=== PATIENT | male | born 1940 | race Caucasian/White ===

== ENCOUNTER 2017-08-03 10:19 | Inpatient (IN) | payer MEDICARE, BC ==
[~2017-08-03] VITALS: Ht 172.7 cm; Wt 65.3 kg
[2017-08-03] MEDS ORDERED: HYDROMORPHONE INJ 2 MG/ML DISP.SYRIN IV ONE (10:23)
[2017-08-03 10:50] LABS: BASOPHILS % (AUTO) 0.3 % (0.0-2.0); EOSINOPHILS % (AUTO) 0.2 % (0.0-6.0); HEMATOCRIT 35 % (39-51); HEMOGLOBIN 11.9 g/dL (13.5-17.5); LYMPHOCYTES # (AUTO) 0.7 /CMM (0.8-4.8); LYMPHOCYTES % (AUTO) 8.3 % (20.0-44.0); MEAN CORPUSCULAR HGB CONC 34 g/dl (31.0-36.0); MEAN CORPUSCULAR VOLUME 90 fL (80-96); MONOCYTES # (AUTO) 0.6 /CMM (0.1-1.30); MONOCYTES % (AUTO) 6.5 % (2.0-12.0); NEUTROPHILS # (AUTO) 7.6 /CMM (1.8-8.9); NEUTROPHILS % (AUTO) 84.7 % (43.0-81.0); PLATELET COUNT (AUTO) 157 /CMM (150-450); RDW COEFFICIENT OF VARIATION 15.1 (11.5-15.0); RED BLOOD CELL COUNT(AUTO) 3.88 MIL/uL (4.5-6.0)
[2017-08-03 10:58] LABS: CALCIUM, SERUM 9.5 mg/dL (8.5-10.1); CARBON DIOXIDE 21 mmol/L (21-32); CHLORIDE 99 mmol/L (98-107); CREATININE 3.4 mg/dL (0.6-1.3); GLUCOSE 188 mg/dL (74-106); POTASSIUM 4.5 mmol/L (3.5-5.1); SODIUM SERUM 131 mmol/L (136-145); UREA NITROGEN, BLOOD 61 mg/dL (7-18)
[2017-08-03] MEDS ORDERED: HYDROMORPHONE INJ 0.5 MG/0.5 ML SYRINGE IV ONE ×2 (11:00→13:00)
[2017-08-03] MEDS ORDERED: ONDANSETRON HCL/PF - ER 4 MG/2 ML VIAL IV ONE (11:00)
[2017-08-03 11:01] LABS: INR 1.11 (0.85-1.15)
[2017-08-03 11:03] LABS: ALBUMIN 2.3 g/dL (3.4-5.0); BILIRUBIN,DIRECT 0.7 mg/dL (0.0-0.2); BILIRUBIN,TOTAL 1.4 mg/dL (0.2-1.0); TOTAL PROTEIN, SERUM 6.9 g/dL (6.4-8.2)
[2017-08-03] MEDS ORDERED: FENTANYL PF 100MCG/2ML AMPUL IV ONE (11:30)
[2017-08-03] MEDS ORDERED: ONDANSETRON HCL/PF 4 MG/2 ML VIAL ONE (11:49)
[2017-08-03] MEDS ORDERED: FENTANYL PF 100MCG/2ML AMPUL ONE (11:50)
[2017-08-03 11:59] LABS: APPEARANCE,URINE Cloudy (CLEAR); BILIRUBIN,URINE Negative (NEGATIVE); BLOOD, URINE Small Ery/uL (NEGATIVE); KETONES,URINE Trace (NEGATIVE); LEUKOCYTE ESTERASE ,URINE Negative (NEGATIVE); NITRITE, URINE Negative (NEGATIVE); PROTEIN,URINE 100 mg/dl (NEGATIVE); UGLUCOSE Negative (NEGATIVE); UROBILINOGEN,URINE 0.2 EU/dL (0.2)
[2017-08-03 12:02] LABS: COLOR,URINE Dark Yellow (YELLOW)
[2017-08-03 12:08] LABS: BACTERIA,URINE None seen /HPF (None Seen); WBC,URINE 0-3 /HPF (0-3)
[2017-08-03 12:09] LABS: SQUAMOUS EPITHELIAL CELL,UR Few /HPF (None Seen); URINE AMORPHOUS URATE Moderate /HPF (None Seen)
[2017-08-03 14:25] VITALS: BP 114/50
[2017-08-03] MEDS ORDERED: MAG HYDROX/AL HYDROX/SIMETH 30 ML UDC PO PRN (14:30)
[2017-08-03] MEDS ORDERED: HYDROCODONE/APAP 10/325MG 1 EA TABLET PO PRN ×2 (14:30)
[2017-08-03] MEDS ORDERED: MAGNESIUM HYDROXIDE 30 ML UDC PO PRN (14:30)
[2017-08-03] MEDS ORDERED: ACETAMINOPHEN 325 MG TABLET PO PRN (14:30)
[2017-08-03] MEDS ORDERED: ONDANSETRON HCL/PF 4 MG/2 ML VIAL IVP PRN (14:30)
[2017-08-03] MEDS ORDERED: PRED5TAB PO (14:39)
[2017-08-03] MEDS ORDERED: GLIP5TAB13 PO (14:39)
[2017-08-03] MEDS ORDERED: DILT240C2 PO (14:39)
[2017-08-03] MEDS ORDERED: VALS320T2 PO (14:39)
[2017-08-03] MEDS ORDERED: CARV25TA2 PO (14:39)
[2017-08-03] MEDS ORDERED: ALPR0.5T8 PO (14:39)
[2017-08-03] MEDS ORDERED: ABIR500T PO (14:39)
[2017-08-03] MEDS ORDERED: LATA2.5D7 EACHEYE (14:39)
[2017-08-03] MEDS ORDERED: ATOR40TA PO (14:39)
[2017-08-03 16:00] VITALS: BP 114/50
[2017-08-03] MEDS ORDERED: ALPRAZOLAM 0.5 MG TABLET PO PRN (16:30)
[2017-08-03] MEDS: BLOOD SUGAR DIAGNOSTIC 1 EACH STRIP IN SCH ×2 (16:50→21:05)
[2017-08-03] MEDS: IV NS 0.9% 1,000 ML IV PRN (16:50)
[2017-08-03] MEDS ORDERED: DEXTROSE 50%-WATER 50 ML DISP.SYRIN IV PRN (17:00)
[2017-08-03 20:00] VITALS: BP 91/51
[2017-08-03] MEDS ORDERED: IV NS 0.9% 1,000 ML IV ONE (20:00)
[2017-08-03] MEDS: CARVEDILOL 12.5 MG TABLET PO SCH (20:24)
[2017-08-03] MEDS: LATANOPROST EYE DROP 0.005% 2.5 ML BOTTLE EACHEYE SCH (21:05)
[2017-08-04] VITALS: BP 129/80
[2017-08-04] MEDS: HYDROMORPHONE HCL 2 MG TABLET PO PRN ×2 (02:56→10:52)
[2017-08-04 04:00] VITALS: BP 138/69
[2017-08-04] MEDS: BLOOD SUGAR DIAGNOSTIC 1 EACH STRIP IN SCH ×4 (06:06→21:48)
[2017-08-04] MEDS: INSULIN REGULAR, HUMAN 100 UNIT/ML 3 ML VIAL SQ PRN ×2 (06:09→22:00)
[2017-08-04 06:19] LABS: BASOPHILS % (AUTO) 0.1 % (0.0-2.0); EOSINOPHILS % (AUTO) 0.4 % (0.0-6.0); HEMATOCRIT 34 % (39-51); HEMOGLOBIN 11.5 g/dL (13.5-17.5); LYMPHOCYTES # (AUTO) 0.4 /CMM (0.8-4.8); LYMPHOCYTES % (AUTO) 6.8 % (20.0-44.0); MEAN CORPUSCULAR HGB CONC 34 g/dl (31.0-36.0); MEAN CORPUSCULAR VOLUME 91 fL (80-96); MONOCYTES # (AUTO) 0.6 /CMM (0.1-1.30); MONOCYTES % (AUTO) 9.3 % (2.0-12.0); NEUTROPHILS # (AUTO) 5.5 /CMM (1.8-8.9); NEUTROPHILS % (AUTO) 83.4 % (43.0-81.0); PLATELET COUNT (AUTO) 144 /CMM (150-450); RDW COEFFICIENT OF VARIATION 15.1 (11.5-15.0); RED BLOOD CELL COUNT(AUTO) 3.75 MIL/uL (4.5-6.0); WHITE BLOOD COUNT (AUTO) 6.5 K/uL (4.3-11.0)
[2017-08-04 06:46] LABS: CALCIUM, SERUM 9.6 mg/dL (8.5-10.1); CARBON DIOXIDE 22 mmol/L (21-32); CHLORIDE 103 mmol/L (98-107); CREATININE 4.2 mg/dL (0.6-1.3); GLUCOSE 228 mg/dL (74-106); MAGNESIUM 2.3 mg/dL (1.8-2.4); PHOSPHORUS 4.3 mg/dL (2.5-4.9); POTASSIUM 4.7 mmol/L (3.5-5.1); SODIUM SERUM 136 mmol/L (136-145); UREA NITROGEN, BLOOD 68 mg/dL (7-18)
[2017-08-04 06:51] LABS: HDL CHOLESTEROL 12 mg/dL (40-60); LDL 26 mg/dL (0-99); TRIGLYCERIDES 281 mg/dL (30-150)
[2017-08-04 07:41] LABS: BAND % (MANUAL) 3 % (0.0-5.0); LYMPHOCYTES % (MANUAL) 13 % (16-48); NEUTROPHILS % (MANUAL) 76 (42-76)
[2017-08-04 07:42] LABS: EOSINOPHILS % (MANUAL) 1 % (0-4); MONOCYTES % (MANUAL) 7 % (0-11.0)
[2017-08-04 08:00] VITALS: BP 102/53
[2017-08-04] MEDS: CARVEDILOL 12.5 MG TABLET PO SCH ×2 (08:55→21:48)
[2017-08-04] MEDS: DILTIAZEM HCL CD 240 MG PO SCH (08:55)
[2017-08-04] MEDS: ATORVASTATIN 40 MG TABLET PO SCH (08:56)
[2017-08-04] MEDS ORDERED: VALSARTAN 80 MG TABLET PO SCH (09:00)
[2017-08-04] MEDS ORDERED: predniSONE 5 MG TABLET PO SCH (09:00)
[2017-08-04] MEDS: ZYTIGA 500 MG PO SCH (10:00)
[2017-08-04 11:15] LABS: CHOLESTEROL 85 mg/dL (<200)
[2017-08-04] MEDS: DEXAMETHASONE SOD PHOSPHATE 4 MG/ML VIAL IV SCH ×3 (12:41→23:26)
[2017-08-04] MEDS ORDERED: BISACODYL SUPP (10 MG) 10 MG/SUPP.RECT SUPP.RECT RC PRN (14:30)
[2017-08-04] MEDS ORDERED: MINERAL OIL 133 ML (PYXIS) 1 EA ENEMA RC ONE (14:30)
[2017-08-04] MEDS: MORPHINE SULFATE SR 30 MG TABLET.SA PO SCH ×2 (15:01→21:48)
[2017-08-04 16:00] VITALS: BP 167/78
[2017-08-04 17:43] LABS: APPEARANCE,URINE SL CLOUDY (CLEAR); BILIRUBIN,URINE NEGATIVE (NEGATIVE); BLOOD, URINE 1+ Ery/uL (NEGATIVE); COLOR,URINE YELLOW (YELLOW); KETONES,URINE NEGATIVE (NEGATIVE); LEUKOCYTE ESTERASE ,URINE TRACE (NEGATIVE); NITRITE, URINE NEGATIVE (NEGATIVE); PROTEIN,URINE 1+ mg/dl (NEGATIVE); UGLUCOSE NEGATIVE (NEGATIVE); UROBILINOGEN,URINE 0.2 EU/dL (0.2)
[2017-08-04] MEDS: IV NS 0.9% 1,000 ML IV PRN (17:55)
[2017-08-04 17:56] LABS: WBC,URINE 0-3 /HPF (0-3)
[2017-08-04 17:57] LABS: BACTERIA,URINE 1+ /HPF (None Seen); CREATININE, URINE 115.2 MG/DL (30.0-125.0); URINE AMORPHOUS URATE Moderate /HPF (None Seen)
[2017-08-04 17:58] LABS: SQUAMOUS EPITHELIAL CELL,UR Few /HPF (None Seen)
[2017-08-04 19:33] LABS: EOSINOPHIL,URINE None Seen
[2017-08-04 20:00] VITALS: BP 144/84
[2017-08-04] MEDS: LATANOPROST EYE DROP 0.005% 2.5 ML BOTTLE EACHEYE SCH (21:48)
[2017-08-04] MEDS: HEPARIN SODIUM, PORCINE 5000 UNITS/1 ML VIAL SQ SCH (22:01)
[2017-08-05 06:30] LABS: BASOPHILS % (AUTO) 0.1 % (0.0-2.0); HEMATOCRIT 34 % (39-51); HEMOGLOBIN 11.1 g/dL (13.5-17.5); LYMPHOCYTES # (AUTO) 0.3 /CMM (0.8-4.8); LYMPHOCYTES % (AUTO) 4.2 % (20.0-44.0); MEAN CORPUSCULAR HGB CONC 33 g/dl (31.0-36.0); MEAN CORPUSCULAR VOLUME 91 fL (80-96); MONOCYTES # (AUTO) 0.3 /CMM (0.1-1.30); MONOCYTES % (AUTO) 4.7 % (2.0-12.0); NEUTROPHILS # (AUTO) 6.2 /CMM (1.8-8.9); PLATELET COUNT (AUTO) 164 /CMM (150-450); RDW COEFFICIENT OF VARIATION 15.5 (11.5-15.0); WHITE BLOOD COUNT (AUTO) 6.8 K/uL (4.3-11.0)
[2017-08-05] MEDS: BLOOD SUGAR DIAGNOSTIC 1 EACH STRIP IN SCH ×4 (06:50→21:21)
[2017-08-05] MEDS: DEXAMETHASONE SOD PHOSPHATE 4 MG/ML VIAL IV SCH ×3 (06:51→17:34)
[2017-08-05 06:58] LABS: CREATINE KINASE, TOTAL 220 U/L (39-308)
[2017-08-05] MEDS: INSULIN REGULAR, HUMAN 100 UNIT/ML 3 ML VIAL SQ PRN ×4 (06:59→21:21)
[2017-08-05] MEDS: IV NS 0.9% 1,000 ML IV PRN (06:59)
[2017-08-05 07:08] LABS: ALANINE AMINOTRANSFERASE 19 U/L (12-78); ALBUMIN 1.7 g/dL (3.4-5.0); ASPARTATE AMINOTRANSFERASE 43 U/L (15-37); BILIRUBIN,TOTAL 1.1 mg/dL (0.2-1.0); CALCIUM, SERUM 10.1 mg/dL (8.5-10.1); CARBON DIOXIDE 19 mmol/L (21-32); CHLORIDE 105 mmol/L (98-107); CREATININE 4.8 mg/dL (0.6-1.3); GLUCOSE 295 mg/dL (74-106); MAGNESIUM 3.4 mg/dL (1.8-2.4); PHOSPHORUS 4.2 mg/dL (2.5-4.9); POTASSIUM 5.5 mmol/L (3.5-5.1); SODIUM SERUM 137 mmol/L (136-145); TOTAL PROTEIN, SERUM 6.6 g/dL (6.4-8.2); UREA NITROGEN, BLOOD 79 mg/dL (7-18)
[2017-08-05 07:16] LABS: ALKALINE PHOSPHATASE 1470 U/L (46-116)
[2017-08-05] MEDS: PANTOPRAZOLE 40 MG TABLET.DR PO SCH (07:30)
[2017-08-05] MEDS: MORPHINE SULFATE SR 30 MG TABLET.SA PO SCH ×2 (09:00→21:14)
[2017-08-05] MEDS: ZYTIGA 500 MG PO SCH (09:00)
[2017-08-05] MEDS: DILTIAZEM HCL CD 240 MG PO SCH (09:00)
[2017-08-05] MEDS: CARVEDILOL 12.5 MG TABLET PO SCH ×2 (09:00→21:00)
[2017-08-05] MEDS: ATORVASTATIN 40 MG TABLET PO SCH (09:00)
[2017-08-05 09:41] VITALS: BP 100/64
[2017-08-05 09:50] LABS: BAND % (MANUAL) 6 % (0.0-5.0); LYMPHOCYTES % (MANUAL) 8 % (16-48); METAMYELOCYTES % 1 % (0-0); MONOCYTES % (MANUAL) 6 % (0-11.0); NEUTROPHILS % (MANUAL) 79 (42-76)
[2017-08-05] MEDS: HEPARIN SODIUM, PORCINE 5000 UNITS/1 ML VIAL SQ SCH ×2 (09:52→21:20)
[2017-08-05 10:08] LABS: FREE PSA 9.41 ng/mL (0.00-45); PROSTATE SPECIFIC ANTIGEN SCR 73.39 ng/mL (0.00-4.00)
[2017-08-05] MEDS: HYDROMORPHONE HCL 2 MG TABLET PO PRN ×2 (11:50→16:41)
[2017-08-05 16:23] VITALS: BP 103/22
[2017-08-05 20:00] VITALS: BP 108/75
[2017-08-05] MEDS: LATANOPROST EYE DROP 0.005% 2.5 ML BOTTLE EACHEYE SCH (21:21)
[2017-08-05 22:00] VITALS: BP 108/75
[2017-08-06] VITALS (12 sets, daily range): BP systolic 75–142; BP diastolic 49–120
[2017-08-06] MEDS: DEXAMETHASONE SOD PHOSPHATE 4 MG/ML VIAL IV SCH ×4 (00:59→18:35)
[2017-08-06] MEDS: IV NS 0.9% 1,000 ML IV PRN (01:06)
[2017-08-06] MEDS: BLOOD SUGAR DIAGNOSTIC 1 EACH STRIP IN SCH ×4 (06:48→21:47)
[2017-08-06 06:52] LABS: CALCIUM, SERUM 9.7 mg/dL (8.5-10.1); CARBON DIOXIDE 17 mmol/L (21-32); CHLORIDE 109 mmol/L (98-107); CREATININE 5.6 mg/dL (0.6-1.3); GLUCOSE 238 mg/dL (74-106); POTASSIUM 5.8 mmol/L (3.5-5.1); SODIUM SERUM 139 mmol/L (136-145)
[2017-08-06] MEDS: INSULIN REGULAR, HUMAN 100 UNIT/ML 3 ML VIAL SQ PRN ×3 (06:52→21:51)
[2017-08-06 06:54] LABS: UREA NITROGEN, BLOOD 107 mg/dL (7-18)
[2017-08-06] MEDS ORDERED: Z GUARD REMEDY 2 OZ OINT TP PRN (09:00)
[2017-08-06] MEDS: DILTIAZEM HCL CD 240 MG PO SCH (09:18)
[2017-08-06] MEDS: CARVEDILOL 12.5 MG TABLET PO SCH ×2 (09:18→21:00)
[2017-08-06] MEDS: ATORVASTATIN 40 MG TABLET PO SCH (09:18)
[2017-08-06] MEDS: ZYTIGA 500 MG PO SCH (09:21)
[2017-08-06] MEDS: FENTANYL PF 100MCG/2ML AMPUL IV PRN (09:23)
[2017-08-06] MEDS: HEPARIN SODIUM, PORCINE 5000 UNITS/1 ML VIAL SQ SCH ×2 (09:28→21:52)
[2017-08-06] MEDS: PANTOPRAZOLE 40 MG TABLET.DR PO SCH (09:30)
[2017-08-06] MEDS ORDERED: MORPHINE SULFATE SR 15 MG TABLET.SA PO SCH (10:00)
[2017-08-06 11:12] LABS: IMMUNOGLOBULIN A, SERUM 120 mg/dL (61-437); IMMUNOGLOBULIN G, SERUM 615 mg/dL (700-1600); IMMUNOGLOBULIN M, SERUM 57 mg/dL (15-143)
[2017-08-06] MEDS: ACETAMINOPHEN 325 MG TABLET PO SCH ×3 (12:30→23:03)
[2017-08-06] MEDS: Z GUARD REMEDY 2 OZ OINT TP SCH (13:29)
[2017-08-06 14:48] LABS: APPEARANCE,URINE CLOUDY (CLEAR); BILIRUBIN,URINE NEGATIVE (NEGATIVE); BLOOD, URINE 3+ Ery/uL (NEGATIVE); COLOR,URINE YELLOW (YELLOW); KETONES,URINE NEGATIVE (NEGATIVE); LEUKOCYTE ESTERASE ,URINE 2+ (NEGATIVE); NITRITE, URINE NEGATIVE (NEGATIVE); PROTEIN,URINE 1+ mg/dl (NEGATIVE); UGLUCOSE NEGATIVE (NEGATIVE); UROBILINOGEN,URINE 0.2 EU/dL (0.2)
[2017-08-06 15:04] LABS: CREATININE, URINE 207.9 MG/DL (30.0-125.0); URINE TOTAL PROTEIN 121.2 mg/dL (0-11.9)
[2017-08-06 15:23] LABS: SQUAMOUS EPITHELIAL CELL,UR Rare /HPF (None Seen)
[2017-08-06 15:24] LABS: BACTERIA,URINE 1+ /HPF (None Seen)
[2017-08-06 16:00] LABS: EOSINOPHIL,URINE None Seen
[2017-08-06] MEDS: BOOST GLUCOSE CONTROL VANILLA 237 ML BOX PO SCH (17:00)
[2017-08-06] MEDS ORDERED: SODIUM POLYSTYRENE SULFONATE 15 G/60 ML BOTTLE RC ONE (17:00)
[2017-08-06] MEDS ORDERED: IV NS 0.9% 1,000 ML IV PRN ×2 (17:00→23:00)
[2017-08-06 17:13] LABS: ABG BASE EXCESS -12.1 mmol/L; ABG OXYGEN SATURATION 96.8 % (92.0-98.5); ABG PCO2 32.9 mmHg (35.0-45.0); ABG PH 7.248 (7.350-7.450); ABG PO2 105.6 mmHg (75.0-100.0); AaDO2 112.9 mmHg; COHb 0.3 % (0.5-1.5); MetHb 0.3 % (0.0-1.5); O2Hb 96.2 % (94.0-97.0); SITE, ABG Left Radial
[2017-08-06] MEDS: Sodium Bicarbonate 100 MEQ in IV D5W 1,000 ML IV PRN (17:21)
[2017-08-06] MEDS ORDERED: IV NS 0.9% 1,000 ML IV ONE (19:00)
[2017-08-06] MEDS: LATANOPROST EYE DROP 0.005% 2.5 ML BOTTLE EACHEYE SCH (21:47)
[2017-08-06] MEDS ORDERED: NOREPINEPHRINE 4 MG/4 ML AMPUL IV ONE (23:26)
[2017-08-06] MEDS: NOREPINEPHRINE 8 MG in IV D5W 500 ML IV PRN (23:31)
[2017-08-07] VITALS (36 sets, daily range): BP systolic 106–161; BP diastolic 50–100
[2017-08-07] MEDS ORDERED: PIPERACILLIN /TAZOBACTAM 4.5 G in IV D5W 50 ML IV SCH ×2
[2017-08-07] MEDS: DEXAMETHASONE SOD PHOSPHATE 4 MG/ML VIAL IV SCH ×5 (01:00→23:59)
[2017-08-07] MEDS ORDERED: VANCOMYCIN 1.25 GM in IV NS 0.9% 250 ML IV ONE (01:00)
[2017-08-07] MEDS ORDERED: VANCOMYCIN 500 MG VIAL ONE (02:42)
[2017-08-07] MEDS ORDERED: VANCOMYCIN 1 GM VIAL ONE (02:42)
[2017-08-07] MEDS ORDERED: PIPERACILLIN /TAZOBACTAM 2.25 G VIAL IV ONE (02:43)
[2017-08-07] MEDS: PIPERACILLIN /TAZOBACTAM 2.25 G in IV D5W 50 ML IV SCH ×3 (04:11→21:40)
[2017-08-07] MEDS ORDERED: IV NS 0.9% 1,000 ML IV PRN (04:30)
[2017-08-07 05:16] LABS: HEMATOCRIT 33 % (39-51); HEMOGLOBIN 10.9 g/dL (13.5-17.5); LYMPHOCYTES # (AUTO) 0.3 /CMM (0.8-4.8); LYMPHOCYTES % (AUTO) 2.9 % (20.0-44.0); MEAN CORPUSCULAR HGB CONC 33 g/dl (31.0-36.0); MEAN CORPUSCULAR VOLUME 91 fL (80-96); MONOCYTES # (AUTO) 0.1 /CMM (0.1-1.30); MONOCYTES % (AUTO) 1.4 % (2.0-12.0); NEUTROPHILS # (AUTO) 9.4 /CMM (1.8-8.9); NEUTROPHILS % (AUTO) 95.7 % (43.0-81.0); PLATELET COUNT (AUTO) 118 /CMM (150-450); RDW COEFFICIENT OF VARIATION 16.2 (11.5-15.0); RED BLOOD CELL COUNT(AUTO) 3.61 MIL/uL (4.5-6.0); WHITE BLOOD COUNT (AUTO) 9.8 K/uL (4.3-11.0)
[2017-08-07 05:28] LABS: CALCIUM, SERUM 9.5 mg/dL (8.5-10.1); CARBON DIOXIDE 15 mmol/L (21-32); CHLORIDE 107 mmol/L (98-107); CREATININE 5.6 mg/dL (0.6-1.3); GLUCOSE 349 mg/dL (74-106); MAGNESIUM 2.5 mg/dL (1.8-2.4); PHOSPHORUS 4.9 mg/dL (2.5-4.9); POTASSIUM 5.5 mmol/L (3.5-5.1); SODIUM SERUM 138 mmol/L (136-145)
[2017-08-07] MEDS: Sodium Bicarbonate 100 MEQ in IV D5W 1,000 ML IV PRN ×2 (05:32→19:00)
[2017-08-07] MEDS: ACETAMINOPHEN 325 MG TABLET PO SCH ×4 (05:35→23:59)
[2017-08-07 05:42] LABS: UREA NITROGEN, BLOOD 122 mg/dL (7-18)
[2017-08-07] MEDS ORDERED: NOREPINEPHRINE 4 MG/4 ML AMPUL IV ONE (06:34)
[2017-08-07] MEDS: NOREPINEPHRINE 8 MG in IV D5W 500 ML IV PRN (06:40)
[2017-08-07] MEDS: PANTOPRAZOLE 40 MG TABLET.DR PO SCH (07:30)
[2017-08-07] MEDS: BLOOD SUGAR DIAGNOSTIC 1 EACH STRIP IN SCH ×3 (07:30→21:39)
[2017-08-07] MEDS: INSULIN REGULAR, HUMAN 100 UNIT/ML 3 ML VIAL SQ PRN ×3 (07:32→21:43)
[2017-08-07 08:10] LABS: *SPE A/G RATIO 0.6 (0.7-1.7); *SPE ALPHA-1-GLOBULIN 0.5 g/dL (0.0-0.4); *SPE ALPHA-2-GLOBULIN 1.2 g/dL (0.4-1.0); *SPE BETA GLOBULIN 0.9 g/dL (0.7-1.3); *SPE GLOBULIN, TOTAL 3.2 g/dL (2.2-3.9); *SPE M-SPIKE Not Observed g/dL (Not Observed); *SPEGAMMA GLOBULIN 0.6 g/dL (0.4-1.8)
[2017-08-07] MEDS: BOOST GLUCOSE CONTROL VANILLA 237 ML BOX PO SCH ×3 (08:54→17:00)
[2017-08-07] MEDS: ATORVASTATIN 40 MG TABLET PO SCH (09:00)
[2017-08-07] MEDS: DILTIAZEM HCL CD 240 MG PO SCH (09:00)
[2017-08-07] MEDS: ZYTIGA 500 MG PO SCH (09:00)
[2017-08-07] MEDS: CARVEDILOL 12.5 MG TABLET PO SCH ×2 (09:00→21:40)
[2017-08-07] MEDS ORDERED: ROCURONIUM BROMIDE 50 MG/5 ML ONE (09:38)
[2017-08-07 10:06] LABS: ABG BASE EXCESS -12.7 mmol/L; ABG OXYGEN SATURATION 95.1 % (92.0-98.5); ABG PH 7.162 (7.350-7.450); ABG PO2 90.5 mmHg (75.0-100.0); AaDO2 115.1 mmHg; COHb 0.3 % (0.5-1.5); MetHb 0.4 % (0.0-1.5); O2Hb 94.4 % (94.0-97.0); SITE, ABG Left Radial; VENT MODE, BG nasal cannula
[2017-08-07 10:07] LABS: ABG BASE EXCESS -11.9 mmol/L; ABG OXYGEN SATURATION 98.4 % (92.0-98.5); ABG PCO2 33.5 mmHg (35.0-45.0); ABG PH 7.247 (7.350-7.450); ABG PO2 154.4 mmHg (75.0-100.0); AaDO2 92.3 mmHg; COHb 0.3 % (0.5-1.5); MetHb 0.3 % (0.0-1.5); O2Hb 97.8 % (94.0-97.0); SITE, ABG Right Radial
[2017-08-07] MEDS: PROPOFOL 100 ML IV PRN ×2 (10:15→17:26)
[2017-08-07 11:23] LABS: ABG BASE EXCESS -11.1 mmol/L; ABG OXYGEN SATURATION 96.2 % (92.0-98.5); ABG PCO2 34.4 mmHg (35.0-45.0); ABG PH 7.258 (7.350-7.450); ABG PO2 92.9 mmHg (75.0-100.0); AaDO2 224.9 mmHg; COHb 0.3 % (0.5-1.5); MetHb 0.5 % (0.0-1.5); O2Hb 95.4 % (94.0-97.0); PEEP,BG 5 cm H2O; SITE, ABG Right Radial; VT, ABG 550 mL
[2017-08-07] MEDS: Z GUARD REMEDY 2 OZ OINT TP SCH (11:50)
[2017-08-07] MEDS: HEPARIN SODIUM, PORCINE 5000 UNITS/1 ML VIAL SQ SCH ×2 (11:56→21:42)
[2017-08-07] MEDS: NOREPINEPHRINE 16 MG in IV D5W 500 ML IV PRN (11:57)
[2017-08-07 14:20] LABS: PTH, INTACT 55 pg/mL (15-65)
[2017-08-07] MEDS ORDERED: ROCURONIUM BROMIDE 50 MG/5 ML IV ONE ×2 (14:32→14:33)
[2017-08-07] MEDS ORDERED: ETOMIDATE 2 MG/ML VIAL IV ONE (14:33)
[2017-08-07 16:08] LABS: APPEARANCE,URINE CLOUDY (CLEAR); BILIRUBIN,URINE NEGATIVE (NEGATIVE); BLOOD, URINE 3+ Ery/uL (NEGATIVE); COLOR,URINE YELLOW (YELLOW); KETONES,URINE NEGATIVE (NEGATIVE); LEUKOCYTE ESTERASE ,URINE NEGATIVE (NEGATIVE); NITRITE, URINE NEGATIVE (NEGATIVE); PH,URINE 5.5 (5.0-8.0); PROTEIN,URINE 1+ mg/dl (NEGATIVE); UGLUCOSE 1+ mg/dL (NEGATIVE); UROBILINOGEN,URINE 0.2 EU/dL (0.2)
[2017-08-07 16:46] LABS: BACTERIA,URINE 2+ /HPF (None Seen); RBC,URINE 81-100 /HPF (0-2); SQUAMOUS EPITHELIAL CELL,UR None Seen /HPF (None Seen); WBC,URINE NONE SEEN /HPF (0-3)
[2017-08-07] MEDS ORDERED: BLOOD SUGAR DIAGNOSTIC 1 EACH STRIP IN SCH (17:30)
[2017-08-07] MEDS ORDERED: DEXTROSE 50%-WATER 50 ML DISP.SYRIN IV PRN ×2 (17:30→19:00)
[2017-08-07] MEDS ORDERED: INSULIN REGULAR, HUMAN 100 UNIT/ML 3 ML VIAL SQ PRN (17:30)
[2017-08-07] MEDS ORDERED: FEE PK DOSING 1 MIN EA MC ONE (20:37)
[2017-08-07] MEDS: LATANOPROST EYE DROP 0.005% 2.5 ML BOTTLE EACHEYE SCH (21:41)
[2017-08-08] VITALS (93 sets, daily range): BP systolic 64–150; BP diastolic 41–88
[2017-08-08] MEDS: BLOOD SUGAR DIAGNOSTIC 1 EACH STRIP IN SCH ×6 (00:06→20:53)
[2017-08-08] MEDS: INSULIN REGULAR, HUMAN 100 UNIT/ML 3 ML VIAL SQ PRN ×6 (00:07→20:56)
[2017-08-08] MEDS: PROPOFOL 100 ML IV PRN ×5 (02:03→21:33)
[2017-08-08 04:58] LABS: HEMOGLOBIN 9.1 g/dL (13.5-17.5); NEUTROPHILS # (AUTO) 8.1 /CMM (1.8-8.9)
[2017-08-08 05:00] LABS: EOSINOPHILS % (AUTO) 0.5 % (0.0-6.0); HEMATOCRIT 27 % (39-51); LYMPHOCYTES # (AUTO) 0.7 /CMM (0.8-4.8); LYMPHOCYTES % (AUTO) 7.7 % (20.0-44.0); MEAN CORPUSCULAR HGB CONC 34 g/dl (31.0-36.0); MEAN CORPUSCULAR VOLUME 90 fL (80-96); MONOCYTES # (AUTO) 0.2 /CMM (0.1-1.30); MONOCYTES % (AUTO) 1.9 % (2.0-12.0); NEUTROPHILS % (AUTO) 89.9 % (43.0-81.0); PLATELET COUNT (AUTO) 77 /CMM (150-450); RDW COEFFICIENT OF VARIATION 15.7 (11.5-15.0); RED BLOOD CELL COUNT(AUTO) 3.01 MIL/uL (4.5-6.0); WHITE BLOOD COUNT (AUTO) 9.1 K/uL (4.3-11.0)
[2017-08-08 05:10] LABS: CALCIUM, SERUM 8.5 mg/dL (8.5-10.1); CARBON DIOXIDE 23 mmol/L (21-32); CHLORIDE 106 mmol/L (98-107); GLUCOSE 266 mg/dL (74-106); MAGNESIUM 2.2 mg/dL (1.8-2.4); PHOSPHORUS 3.5 mg/dL (2.5-4.9); POTASSIUM 4.2 mmol/L (3.5-5.1); SODIUM SERUM 139 mmol/L (136-145)
[2017-08-08 05:12] LABS: UREA NITROGEN, BLOOD 92 mg/dL (7-18)
[2017-08-08 05:21] LABS: NEUTROPHILS % (MANUAL) 86 (42-76)
[2017-08-08 05:22] LABS: BAND % (MANUAL) 6 % (0.0-5.0); LYMPHOCYTES % (MANUAL) 3 % (16-48); MONOCYTES % (MANUAL) 5 % (0-11.0)
[2017-08-08] MEDS: PIPERACILLIN /TAZOBACTAM 2.25 G in IV D5W 50 ML IV SCH ×3 (05:55→21:02)
[2017-08-08] MEDS: ACETAMINOPHEN 325 MG TABLET PO SCH ×4 (05:56→23:48)
[2017-08-08] MEDS: DEXAMETHASONE SOD PHOSPHATE 4 MG/ML VIAL IV SCH ×4 (05:56→23:48)
[2017-08-08] MEDS: CARVEDILOL 12.5 MG TABLET PO SCH ×2 (08:38→20:45)
[2017-08-08] MEDS: ZYTIGA 500 MG PO SCH (08:38)
[2017-08-08] MEDS: ATORVASTATIN 40 MG TABLET PO SCH (08:38)
[2017-08-08] MEDS: DILTIAZEM HCL CD 240 MG PO SCH (08:38)
[2017-08-08] MEDS: BOOST GLUCOSE CONTROL VANILLA 237 ML BOX PO SCH ×3 (08:39→17:00)
[2017-08-08] MEDS: PANTOPRAZOLE 40 MG TABLET.DR PO SCH (08:48)
[2017-08-08] MEDS: Z GUARD REMEDY 2 OZ OINT TP SCH (08:55)
[2017-08-08] MEDS: HEPARIN SODIUM, PORCINE 5000 UNITS/1 ML VIAL SQ SCH ×2 (08:57→20:46)
[2017-08-08 09:01] LABS: ABG BASE EXCESS -3.3 mmol/L; ABG OXYGEN SATURATION 96.9 % (92.0-98.5); ABG PCO2 28.7 mmHg (35.0-45.0); ABG PH 7.454 (7.350-7.450); ABG PO2 103.9 mmHg (75.0-100.0); AaDO2 148.3 mmHg; COHb 0.3 % (0.5-1.5); MetHb 0.2 % (0.0-1.5); O2Hb 96.4 % (94.0-97.0); PEEP,BG 5 cm H2O; SITE, ABG Left Radial; VT, ABG 600 mL
[2017-08-08] MEDS: AMIODARONE HCL 200 MG TABLET NG SCH ×2 (12:11→17:57)
[2017-08-08] MEDS: NOREPINEPHRINE 16 MG in IV D5W 500 ML IV PRN (13:43)
[2017-08-08] MEDS: FENTANYL PF 100MCG/2ML AMPUL IV PRN (16:16)
[2017-08-08] MEDS ORDERED: VANCOMYCIN 1 GM in IV NS 0.9% 250 ML IV ONE (18:00)
[2017-08-08] MEDS: LATANOPROST EYE DROP 0.005% 2.5 ML BOTTLE EACHEYE SCH (21:25)
[2017-08-09] VITALS (67 sets, daily range): BP systolic 86–145; BP diastolic 53–80
[2017-08-09] MEDS: INSULIN REGULAR, HUMAN 100 UNIT/ML 3 ML VIAL SQ PRN ×6 (01:11→21:31)
[2017-08-09] MEDS: BLOOD SUGAR DIAGNOSTIC 1 EACH STRIP IN SCH ×6 (01:12→21:28)
[2017-08-09] MEDS: PROPOFOL 100 ML IV PRN ×5 (02:37→21:21)
[2017-08-09 04:20] LABS: HEMATOCRIT 29 % (39-51); HEMOGLOBIN 10.3 g/dL (13.5-17.5); MEAN CORPUSCULAR HGB CONC 36 g/dl (31.0-36.0); MEAN CORPUSCULAR VOLUME 88 fL (80-96); PLATELET COUNT (AUTO) 71 /CMM (150-450); RDW COEFFICIENT OF VARIATION 15.7 (11.5-15.0); RED BLOOD CELL COUNT(AUTO) 3.23 MIL/uL (4.5-6.0); WHITE BLOOD COUNT (AUTO) 14.2 K/uL (4.3-11.0)
[2017-08-09 04:58] LABS: CALCIUM, SERUM 7.6 mg/dL (8.5-10.1); CARBON DIOXIDE 22 mmol/L (21-32); CHLORIDE 99 mmol/L (98-107); CREATININE 3.6 mg/dL (0.6-1.3); GLUCOSE 204 mg/dL (74-106); POTASSIUM 4.6 mmol/L (3.5-5.1); SODIUM SERUM 133 mmol/L (136-145); VANCOMYCIN,TROUGH 21 ug/ml (12-20)
[2017-08-09] MEDS: PIPERACILLIN /TAZOBACTAM 2.25 G in IV D5W 50 ML IV SCH ×3 (05:00→21:01)
[2017-08-09 05:04] LABS: UREA NITROGEN, BLOOD 81 mg/dL (7-18)
[2017-08-09] MEDS: DEXAMETHASONE SOD PHOSPHATE 4 MG/ML VIAL IV SCH ×4 (05:15→23:46)
[2017-08-09] MEDS: ACETAMINOPHEN 325 MG TABLET PO SCH ×4 (05:15→23:46)
[2017-08-09 05:19] LABS: LYMPHOCYTES % (MANUAL) 3 % (16-48); MONOCYTES % (MANUAL) 4 % (0-11.0); NEUTROPHILS % (MANUAL) 93 (42-76)
[2017-08-09] MEDS: BOOST GLUCOSE CONTROL VANILLA 237 ML BOX PO SCH ×3 (08:34→16:28)
[2017-08-09] MEDS: CARVEDILOL 12.5 MG TABLET PO SCH ×2 (08:34→21:04)
[2017-08-09] MEDS: ATORVASTATIN 40 MG TABLET PO SCH (08:50)
[2017-08-09] MEDS: ZYTIGA 500 MG PO SCH (08:50)
[2017-08-09] MEDS: PANTOPRAZOLE 40 MG TABLET.DR PO SCH (08:50)
[2017-08-09] MEDS: Z GUARD REMEDY 2 OZ OINT TP SCH (08:51)
[2017-08-09] MEDS: DILTIAZEM HCL CD 240 MG PO SCH (08:54)
[2017-08-09] MEDS: AMIODARONE HCL 200 MG TABLET NG SCH ×3 (08:55→16:36)
[2017-08-09] MEDS: HEPARIN SODIUM, PORCINE 5000 UNITS/1 ML VIAL SQ SCH ×2 (09:00→21:00)
[2017-08-09 09:46] LABS: ABG BASE EXCESS -1.2 mmol/L; ABG OXYGEN SATURATION 95.4 % (92.0-98.5); ABG PH 7.485 (7.350-7.450); ABG PO2 86.2 mmHg (75.0-100.0); AaDO2 165.7 mmHg; COHb 0.3 % (0.5-1.5); MetHb 0.8 % (0.0-1.5); O2Hb 94.4 % (94.0-97.0); PEEP,BG 5 cm H2O; SITE, ABG Right Radial; VT, ABG 600 mL
[2017-08-09] MEDS ORDERED: DEXAMETHASONE SOD PHOSPHATE 10 MG/ML VIAL IV ONE (15:00)
[2017-08-09] MEDS ORDERED: IV NS 0.9% 250 ML BAG IV ONE ×2 (21:00→22:00)
[2017-08-09] MEDS: LATANOPROST EYE DROP 0.005% 2.5 ML BOTTLE EACHEYE SCH (21:31)
[2017-08-10] VITALS (50 sets, daily range): BP systolic 81–162; BP diastolic 48–85
[2017-08-10] MEDS: PROPOFOL 100 ML IV PRN ×3 (01:12→10:43)
[2017-08-10] MEDS: INSULIN REGULAR, HUMAN 100 UNIT/ML 3 ML VIAL SQ PRN ×6 (01:17→22:03)
[2017-08-10] MEDS: BLOOD SUGAR DIAGNOSTIC 1 EACH STRIP IN SCH ×6 (01:21→21:55)
[2017-08-10 04:51] LABS: BASOPHILS % (AUTO) 0.1 % (0.0-2.0); EOSINOPHILS % (AUTO) 0.4 % (0.0-6.0); HEMATOCRIT 28 % (39-51); HEMOGLOBIN 10.1 g/dL (13.5-17.5); LYMPHOCYTES # (AUTO) 0.6 /CMM (0.8-4.8); LYMPHOCYTES % (AUTO) 4.5 % (20.0-44.0); MEAN CORPUSCULAR HGB CONC 36 g/dl (31.0-36.0); MEAN CORPUSCULAR VOLUME 88 fL (80-96); MONOCYTES # (AUTO) 0.1 /CMM (0.1-1.30); MONOCYTES % (AUTO) 0.5 % (2.0-12.0); NEUTROPHILS % (AUTO) 94.5 % (43.0-81.0); PLATELET COUNT (AUTO) 71 /CMM (150-450); RDW COEFFICIENT OF VARIATION 15.3 (11.5-15.0); RED BLOOD CELL COUNT(AUTO) 3.19 MIL/uL (4.5-6.0); WHITE BLOOD COUNT (AUTO) 13.8 K/uL (4.3-11.0)
[2017-08-10 05:04] LABS: CALCIUM, SERUM 7.1 mg/dL (8.5-10.1); CARBON DIOXIDE 21 mmol/L (21-32); CHLORIDE 100 mmol/L (98-107); CREATININE 4.1 mg/dL (0.6-1.3); GLUCOSE 234 mg/dL (74-106); MAGNESIUM 2.1 mg/dL (1.8-2.4); PHOSPHORUS 5.5 mg/dL (2.5-4.9); POTASSIUM 4.9 mmol/L (3.5-5.1); SODIUM SERUM 132 mmol/L (136-145); UREA NITROGEN, BLOOD 99 mg/dL (7-18)
[2017-08-10] MEDS: PIPERACILLIN /TAZOBACTAM 2.25 G in IV D5W 50 ML IV SCH ×3 (05:04→20:44)
[2017-08-10] MEDS: DEXAMETHASONE SOD PHOSPHATE 4 MG/ML VIAL IV SCH ×4 (05:32→23:23)
[2017-08-10] MEDS: ACETAMINOPHEN 325 MG TABLET PO SCH ×4 (05:33→23:23)
[2017-08-10] MEDS: PANTOPRAZOLE 40 MG TABLET.DR PO SCH (08:30)
[2017-08-10] MEDS: DILTIAZEM HCL CD 240 MG PO SCH (09:00)
[2017-08-10] MEDS: AMIODARONE HCL 200 MG TABLET NG SCH ×3 (09:00→17:24)
[2017-08-10] MEDS: CARVEDILOL 12.5 MG TABLET PO SCH ×2 (09:00→20:44)
[2017-08-10] MEDS: BOOST GLUCOSE CONTROL VANILLA 237 ML BOX PO SCH ×3 (09:00→17:41)
[2017-08-10] MEDS: ALBUMIN 25% 25 GM in PREMIX 1 EA IV PRN (09:26)
[2017-08-10] MEDS: HEPARIN SODIUM, PORCINE 5000 UNITS/1 ML VIAL SQ SCH ×2 (09:38→20:45)
[2017-08-10] MEDS: ZYTIGA 500 MG PO SCH (09:39)
[2017-08-10] MEDS: ATORVASTATIN 40 MG TABLET PO SCH (09:39)
[2017-08-10] MEDS: Z GUARD REMEDY 2 OZ OINT TP SCH (09:42)
[2017-08-10] MEDS ORDERED: DC PROPOFOL WHEN EXTUBATED XX PRN (10:00)
[2017-08-10] MEDS: VANCOMYCIN 500 MG in IV NS 0.9% 100 ML IV PRN (12:32)
[2017-08-10 14:04] LABS: ABG BASE EXCESS 1.1 mmol/L; ABG OXYGEN SATURATION 94.6 % (92.0-98.5); ABG PCO2 27.1 mmHg (35.0-45.0); ABG PH 7.544 (7.350-7.450); ABG PO2 75.7 mmHg (75.0-100.0); AaDO2 178.3 mmHg; COHb 0.2 % (0.5-1.5); MetHb 0.4 % (0.0-1.5); PEEP,BG 5 cm H2O; SITE, ABG Right Radial; VENT MODE, BG SIMV RR 4 +5 PS 12 40%
[2017-08-10] MEDS: HYDROMORPHONE INJ 2 MG/ML DISP.SYRIN IV PRN (21:50)
[2017-08-10] MEDS: LATANOPROST EYE DROP 0.005% 2.5 ML BOTTLE EACHEYE SCH (22:01)
[2017-08-11] VITALS (41 sets, daily range): BP systolic 78–156; BP diastolic 32–109
[2017-08-11] MEDS: BLOOD SUGAR DIAGNOSTIC 1 EACH STRIP IN SCH ×7 (01:28→23:38)
[2017-08-11] MEDS: HYDROMORPHONE INJ 2 MG/ML DISP.SYRIN IV PRN ×3 (02:16→14:23)
[2017-08-11 04:59] LABS: HEMATOCRIT 28 % (39-51); HEMOGLOBIN 9.8 g/dL (13.5-17.5); LYMPHOCYTES # (AUTO) 0.4 /CMM (0.8-4.8); LYMPHOCYTES % (AUTO) 2.7 % (20.0-44.0); MEAN CORPUSCULAR HGB CONC 35 g/dl (31.0-36.0); MEAN CORPUSCULAR VOLUME 88 fL (80-96); MONOCYTES # (AUTO) 0.4 /CMM (0.1-1.30); MONOCYTES % (AUTO) 2.8 % (2.0-12.0); NEUTROPHILS # (AUTO) 15.2 /CMM (1.8-8.9); NEUTROPHILS % (AUTO) 94.5 % (43.0-81.0); PLATELET COUNT (AUTO) 82 /CMM (150-450); RDW COEFFICIENT OF VARIATION 15.3 (11.5-15.0); RED BLOOD CELL COUNT(AUTO) 3.24 MIL/uL (4.5-6.0); WHITE BLOOD COUNT (AUTO) 16.1 K/uL (4.3-11.0)
[2017-08-11 05:08] LABS: CALCIUM, SERUM 7.9 mg/dL (8.5-10.1); CARBON DIOXIDE 23 mmol/L (21-32); CHLORIDE 97 mmol/L (98-107); CREATININE 3.2 mg/dL (0.6-1.3); GLUCOSE 251 mg/dL (74-106); PHOSPHORUS 6.4 mg/dL (2.5-4.9); POTASSIUM 4.7 mmol/L (3.5-5.1); SODIUM SERUM 131 mmol/L (136-145); UREA NITROGEN, BLOOD 75 mg/dL (7-18)
[2017-08-11] MEDS: INSULIN REGULAR, HUMAN 100 UNIT/ML 3 ML VIAL SQ PRN ×6 (05:35→23:32)
[2017-08-11] MEDS: PIPERACILLIN /TAZOBACTAM 2.25 G in IV D5W 50 ML IV SCH ×3 (05:48→20:16)
[2017-08-11] MEDS: DEXAMETHASONE SOD PHOSPHATE 4 MG/ML VIAL IV SCH ×4 (05:48→23:20)
[2017-08-11 05:49] LABS: LYMPHOCYTES % (MANUAL) 4 % (16-48); MONOCYTES % (MANUAL) 4 % (0-11.0); NEUTROPHILS % (MANUAL) 92 (42-76)
[2017-08-11] MEDS: ACETAMINOPHEN 325 MG TABLET PO SCH ×4 (05:55→23:38)
[2017-08-11] MEDS: PANTOPRAZOLE 40 MG TABLET.DR PO SCH (08:04)
[2017-08-11] MEDS: DILTIAZEM HCL CD 240 MG PO SCH (09:00)
[2017-08-11] MEDS: AMIODARONE HCL 200 MG TABLET NG SCH ×3 (09:00→16:34)
[2017-08-11] MEDS: CARVEDILOL 12.5 MG TABLET PO SCH ×2 (09:00→21:00)
[2017-08-11] MEDS: ZYTIGA 500 MG PO SCH (09:38)
[2017-08-11] MEDS: BOOST GLUCOSE CONTROL VANILLA 237 ML BOX PO SCH ×3 (09:40→14:25)
[2017-08-11] MEDS: Z GUARD REMEDY 2 OZ OINT TP SCH (09:41)
[2017-08-11] MEDS: HEPARIN SODIUM, PORCINE 5000 UNITS/1 ML VIAL SQ SCH (09:45)
[2017-08-11] MEDS: ATORVASTATIN 40 MG TABLET PO SCH (09:45)
[2017-08-11] MEDS: VANCOMYCIN 500 MG in IV NS 0.9% 100 ML IV PRN (16:34)
[2017-08-11] MEDS: LATANOPROST EYE DROP 0.005% 2.5 ML BOTTLE EACHEYE SCH (21:37)
[2017-08-11] MEDS: TEMAZEPAM 15 MG CAPSULE PO PRN (23:32)
[2017-08-12] VITALS (10 sets, daily range): BP systolic 91–150; BP diastolic 46–70
[2017-08-12] MEDS: PIPERACILLIN /TAZOBACTAM 2.25 G in IV D5W 50 ML IV SCH ×3 (04:09→21:49)
[2017-08-12] MEDS: DEXAMETHASONE SOD PHOSPHATE 4 MG/ML VIAL IV SCH ×3 (05:06→17:19)
[2017-08-12] MEDS: BLOOD SUGAR DIAGNOSTIC 1 EACH STRIP IN SCH ×5 (05:06→21:49)
[2017-08-12] MEDS: INSULIN REGULAR, HUMAN 100 UNIT/ML 3 ML VIAL SQ PRN ×5 (05:06→21:52)
[2017-08-12 05:53] LABS: BASOPHILS # (AUTO) 0.1 /CMM (0.0-0.2); BASOPHILS % (AUTO) 0.8 % (0.0-2.0); EOSINOPHILS % (AUTO) 0.3 % (0.0-6.0); HEMATOCRIT 29 % (39-51); HEMOGLOBIN 10.2 g/dL (13.5-17.5); LYMPHOCYTES # (AUTO) 0.3 /CMM (0.8-4.8); LYMPHOCYTES % (AUTO) 1.7 % (20.0-44.0); MEAN CORPUSCULAR HGB CONC 35 g/dl (31.0-36.0); MEAN CORPUSCULAR VOLUME 87 fL (80-96); MONOCYTES # (AUTO) 0.3 /CMM (0.1-1.30); MONOCYTES % (AUTO) 1.7 % (2.0-12.0); NEUTROPHILS # (AUTO) 17.8 /CMM (1.8-8.9); NEUTROPHILS % (AUTO) 95.5 % (43.0-81.0); PLATELET COUNT (AUTO) 102 /CMM (150-450); RDW COEFFICIENT OF VARIATION 13.8 (11.5-15.0); RED BLOOD CELL COUNT(AUTO) 3.32 MIL/uL (4.5-6.0); WHITE BLOOD COUNT (AUTO) 18.6 K/uL (4.3-11.0)
[2017-08-12 06:13] LABS: CALCIUM, SERUM 7.8 mg/dL (8.5-10.1); CARBON DIOXIDE 25 mmol/L (21-32); CHLORIDE 96 mmol/L (98-107); CREATININE 2.8 mg/dL (0.6-1.3); GLUCOSE 182 mg/dL (74-106); MAGNESIUM 1.9 mg/dL (1.8-2.4); PHOSPHORUS 4.9 mg/dL (2.5-4.9); POTASSIUM 4.3 mmol/L (3.5-5.1); SODIUM SERUM 131 mmol/L (136-145); UREA NITROGEN, BLOOD 62 mg/dL (7-18)
[2017-08-12] MEDS: ACETAMINOPHEN 325 MG TABLET PO SCH ×3 (07:00→17:19)
[2017-08-12] MEDS: PANTOPRAZOLE 40 MG TABLET.DR PO SCH (08:22)
[2017-08-12] MEDS: AMIODARONE HCL 200 MG TABLET NG SCH ×3 (08:28→17:19)
[2017-08-12] MEDS: ATORVASTATIN 40 MG TABLET PO SCH (08:29)
[2017-08-12] MEDS: BOOST GLUCOSE CONTROL VANILLA 237 ML BOX PO SCH ×3 (08:29→17:20)
[2017-08-12] MEDS: Z GUARD REMEDY 2 OZ OINT TP SCH (08:30)
[2017-08-12] MEDS: ZYTIGA 500 MG PO SCH (09:00)
[2017-08-12] MEDS: DILTIAZEM HCL CD 240 MG PO SCH (09:50)
[2017-08-12] MEDS: CARVEDILOL 12.5 MG TABLET PO SCH ×2 (09:51→21:48)
[2017-08-12] MEDS: HYDROMORPHONE INJ 2 MG/ML DISP.SYRIN IV PRN (15:35)
[2017-08-12 16:14] LABS: APPEARANCE,URINE TURBID (CLEAR); BILIRUBIN,URINE NEGATIVE (NEGATIVE); BLOOD, URINE 3+ Ery/uL (NEGATIVE); COLOR,URINE RED (YELLOW); KETONES,URINE 2+ (NEGATIVE); LEUKOCYTE ESTERASE ,URINE 2+ (NEGATIVE); NITRITE, URINE POSITIVE (NEGATIVE); PH,URINE 6.5 (5.0-8.0); PROTEIN,URINE 3+ mg/dl (NEGATIVE); UGLUCOSE 1+ mg/dL (NEGATIVE)
[2017-08-12 16:41] LABS: RBC,URINE TOO NUMEROUS TO COUN /HPF (0-2)
[2017-08-12 16:44] LABS: BACTERIA,URINE 1+ /HPF (None Seen); SQUAMOUS EPITHELIAL CELL,UR 0-2 /HPF (None Seen)
[2017-08-12] MEDS: LATANOPROST EYE DROP 0.005% 2.5 ML BOTTLE EACHEYE SCH (21:53)
[2017-08-13] VITALS: BP 110/60
[2017-08-13 04:00] VITALS: BP 124/81
[2017-08-13] MEDS: PIPERACILLIN /TAZOBACTAM 2.25 G in IV D5W 50 ML IV SCH ×3 (05:29→21:50)
[2017-08-13] MEDS: DEXAMETHASONE SOD PHOSPHATE 4 MG/ML VIAL IV SCH ×5 (05:29→23:10)
[2017-08-13] MEDS: ACETAMINOPHEN 325 MG TABLET PO SCH ×5 (05:29→23:10)
[2017-08-13 07:32] LABS: CALCIUM, SERUM 8.1 mg/dL (8.5-10.1); CARBON DIOXIDE 24 mmol/L (21-32); CHLORIDE 100 mmol/L (98-107); CREATININE 3.1 mg/dL (0.6-1.3); GLUCOSE 136 mg/dL (74-106); MAGNESIUM 2.1 mg/dL (1.8-2.4); PHOSPHORUS 4.8 mg/dL (2.5-4.9); POTASSIUM 4.4 mmol/L (3.5-5.1); SODIUM SERUM 133 mmol/L (136-145)
[2017-08-13 07:33] LABS: UREA NITROGEN, BLOOD 80 mg/dL (7-18)
[2017-08-13 07:45] LABS: BASOPHILS % (AUTO) 0.1 % (0.0-2.0); EOSINOPHILS % (AUTO) 0.1 % (0.0-6.0); HEMATOCRIT 29 % (39-51); HEMOGLOBIN 10.1 g/dL (13.5-17.5); LYMPHOCYTES # (AUTO) 0.4 /CMM (0.8-4.8); LYMPHOCYTES % (AUTO) 2.5 % (20.0-44.0); MEAN CORPUSCULAR HGB CONC 35 g/dl (31.0-36.0); MEAN CORPUSCULAR VOLUME 88 fL (80-96); MONOCYTES # (AUTO) 0.4 /CMM (0.1-1.30); MONOCYTES % (AUTO) 2.1 % (2.0-12.0); NEUTROPHILS # (AUTO) 17.1 /CMM (1.8-8.9); NEUTROPHILS % (AUTO) 95.2 % (43.0-81.0); PLATELET COUNT (AUTO) 101 /CMM (150-450); RDW COEFFICIENT OF VARIATION 14.3 (11.5-15.0); RED BLOOD CELL COUNT(AUTO) 3.28 MIL/uL (4.5-6.0); WHITE BLOOD COUNT (AUTO) 17.9 K/uL (4.3-11.0)
[2017-08-13 08:00] VITALS: BP 141/68
[2017-08-13] MEDS: BLOOD SUGAR DIAGNOSTIC 1 EACH STRIP IN SCH ×4 (08:02→22:29)
[2017-08-13] MEDS: DILTIAZEM HCL CD 240 MG PO SCH (09:00)
[2017-08-13] MEDS: AMIODARONE HCL 200 MG TABLET NG SCH ×3 (09:00→17:04)
[2017-08-13] MEDS: CARVEDILOL 12.5 MG TABLET PO SCH ×2 (09:00→21:51)
[2017-08-13] MEDS: ZYTIGA 500 MG PO SCH (09:15)
[2017-08-13] MEDS: ATORVASTATIN 40 MG TABLET PO SCH (09:16)
[2017-08-13] MEDS: PANTOPRAZOLE 40 MG TABLET.DR PO SCH (09:16)
[2017-08-13] MEDS: BOOST GLUCOSE CONTROL VANILLA 237 ML BOX PO SCH ×3 (09:18→17:05)
[2017-08-13] MEDS: Z GUARD REMEDY 2 OZ OINT TP SCH (09:18)
[2017-08-13] MEDS: HYDROMORPHONE INJ 2 MG/ML DISP.SYRIN IV PRN ×3 (10:54→23:38)
[2017-08-13] MEDS: INSULIN REGULAR, HUMAN 100 UNIT/ML 3 ML VIAL SQ PRN ×3 (11:49→22:35)
[2017-08-13 16:00] VITALS: BP 130/70
[2017-08-13] MEDS: ALBUMIN 25% 25 GM in PREMIX 1 EA IV PRN (16:31)
[2017-08-13 20:00] VITALS: BP 147/75
[2017-08-13] MEDS: LATANOPROST EYE DROP 0.005% 2.5 ML BOTTLE EACHEYE SCH (22:26)
[2017-08-13] MEDS ORDERED: CEFTRIAXONE 1 G in IV NS 0.9% 50 ML IV ONE (22:30)
[2017-08-13] MEDS ORDERED: CEFTRIAXONE 1 G VIAL ONE (22:46)
[2017-08-13] MEDS: TEMAZEPAM 15 MG CAPSULE PO PRN (23:37)
[2017-08-14 04:00] VITALS: BP 141/69
[2017-08-14] MEDS: ACETAMINOPHEN 325 MG TABLET PO SCH ×3 (05:13→18:10)
[2017-08-14] MEDS: DEXAMETHASONE SOD PHOSPHATE 4 MG/ML VIAL IV SCH ×4 (05:14→20:44)
[2017-08-14 08:00] VITALS: BP 133/68
[2017-08-14] MEDS: BLOOD SUGAR DIAGNOSTIC 1 EACH STRIP IN SCH ×4 (09:02→20:57)
[2017-08-14] MEDS: PANTOPRAZOLE 40 MG TABLET.DR PO SCH (09:03)
[2017-08-14] MEDS: GLUCERNA SHAKE 237 ML CAN PO SCH ×3 (09:03→18:07)
[2017-08-14] MEDS: ATORVASTATIN 40 MG TABLET PO SCH (09:04)
[2017-08-14] MEDS: DILTIAZEM HCL CD 240 MG PO SCH (09:04)
[2017-08-14] MEDS: CARVEDILOL 12.5 MG TABLET PO SCH ×2 (09:04→20:44)
[2017-08-14] MEDS: AMIODARONE HCL 200 MG TABLET NG SCH ×3 (09:04→18:11)
[2017-08-14] MEDS: INSULIN REGULAR, HUMAN 100 UNIT/ML 3 ML VIAL SQ PRN ×4 (09:13→20:52)
[2017-08-14] MEDS: Z GUARD REMEDY 2 OZ OINT TP SCH (09:14)
[2017-08-14] MEDS ORDERED: CEFTRIAXONE 1 G in IV NS 0.9% 50 ML IV SCH (11:00)
[2017-08-14 12:00] VITALS: BP_SYST 118; BP_SYST 126; BP_DIAS 62; BP_DIAS 66
[2017-08-14] MEDS: CEFTRIAXONE 1 G in IV NS 0.9% 50 ML IV SCH ×2 (13:04→20:45)
[2017-08-14 16:00] VITALS: BP 126/62
[2017-08-14] MEDS: ZYTIGA 500 MG PO SCH (18:07)
[2017-08-14 20:00] VITALS: BP 126/62
[2017-08-14] MEDS: LATANOPROST EYE DROP 0.005% 2.5 ML BOTTLE EACHEYE SCH (20:45)
[2017-08-14] MEDS: HYDROMORPHONE INJ 2 MG/ML DISP.SYRIN IV PRN (22:13)
[2017-08-15] MEDS: ACETAMINOPHEN 325 MG TABLET PO SCH ×4 (00:41→17:36)
[2017-08-15] MEDS: DEXAMETHASONE SOD PHOSPHATE 4 MG/ML VIAL IV SCH ×6 (00:41→21:32)
[2017-08-15 04:00] VITALS: BP_SYST 120; BP_SYST 129; BP_DIAS 48; BP_DIAS 67
[2017-08-15] MEDS: BLOOD SUGAR DIAGNOSTIC 1 EACH STRIP IN SCH ×4 (06:47→21:32)
[2017-08-15] MEDS: INSULIN REGULAR, HUMAN 100 UNIT/ML 3 ML VIAL SQ PRN ×2 (06:53→13:00)
[2017-08-15 08:00] VITALS: BP 134/64
[2017-08-15] MEDS: PANTOPRAZOLE 40 MG TABLET.DR PO SCH (08:54)
[2017-08-15] MEDS: ATORVASTATIN 40 MG TABLET PO SCH (08:54)
[2017-08-15] MEDS: ZYTIGA 500 MG PO SCH (08:55)
[2017-08-15] MEDS: CEFTRIAXONE 1 G in IV NS 0.9% 50 ML IV SCH ×2 (08:56→21:32)
[2017-08-15] MEDS: CARVEDILOL 12.5 MG TABLET PO SCH ×2 (09:00→21:31)
[2017-08-15] MEDS: AMIODARONE HCL 200 MG TABLET NG SCH ×3 (10:10→16:54)
[2017-08-15] MEDS: DILTIAZEM HCL CD 240 MG PO SCH (10:11)
[2017-08-15] MEDS: Z GUARD REMEDY 2 OZ OINT TP SCH (10:14)
[2017-08-15] MEDS: GLUCERNA SHAKE 237 ML CAN PO SCH ×3 (10:15→18:20)
[2017-08-15] MEDS: HYDROMORPHONE INJ 2 MG/ML DISP.SYRIN IV PRN ×3 (11:01→21:31)
[2017-08-15] MEDS ORDERED: DEXTROSE 50%-WATER 50 ML DISP.SYRIN IV PRN (13:30)
[2017-08-15 16:00] VITALS: BP 125/64
[2017-08-15] MEDS: *INSULIN REGULAR(HUMULIN R)HUM 100 UNIT/ML VIAL SQ PRN ×2 (17:07→22:28)
[2017-08-15 20:00] VITALS: BP 119/41
[2017-08-15] MEDS: TEMAZEPAM 15 MG CAPSULE PO PRN (21:33)
[2017-08-15] MEDS: LATANOPROST EYE DROP 0.005% 2.5 ML BOTTLE EACHEYE SCH (21:45)
[2017-08-16] MEDS: DEXAMETHASONE SOD PHOSPHATE 4 MG/ML VIAL IV SCH ×2 (04:43→13:04)
[2017-08-16] MEDS: HYDROMORPHONE INJ 2 MG/ML DISP.SYRIN IV PRN ×3 (04:43→17:25)
[2017-08-16] MEDS: ACETAMINOPHEN 325 MG TABLET PO SCH ×4 (05:53→17:26)
[2017-08-16] MEDS: BLOOD SUGAR DIAGNOSTIC 1 EACH STRIP IN SCH ×4 (05:53→20:54)
[2017-08-16] MEDS: INSULIN REGULAR, HUMAN 100 UNIT/ML 3 ML VIAL SQ PRN ×3 (06:19→17:31)
[2017-08-16 07:25] LABS: BASOPHILS % (AUTO) 0.1 % (0.0-2.0); EOSINOPHILS % (AUTO) 0.1 % (0.0-6.0); HEMATOCRIT 28 % (39-51); HEMOGLOBIN 9.9 g/dL (13.5-17.5); LYMPHOCYTES # (AUTO) 0.6 /CMM (0.8-4.8); LYMPHOCYTES % (AUTO) 2.5 % (20.0-44.0); MEAN CORPUSCULAR HGB CONC 36 g/dl (31.0-36.0); MEAN CORPUSCULAR VOLUME 89 fL (80-96); MONOCYTES # (AUTO) 1.1 /CMM (0.1-1.30); NEUTROPHILS # (AUTO) 20.3 /CMM (1.8-8.9); NEUTROPHILS % (AUTO) 92.3 % (43.0-81.0); PLATELET COUNT (AUTO) 226 /CMM (150-450); RDW COEFFICIENT OF VARIATION 13.8 (11.5-15.0); RED BLOOD CELL COUNT(AUTO) 3.11 MIL/uL (4.5-6.0)
[2017-08-16 07:34] LABS: CALCIUM, SERUM 8.3 mg/dL (8.5-10.1); CARBON DIOXIDE 26 mmol/L (21-32); CHLORIDE 97 mmol/L (98-107); CREATININE 3.1 mg/dL (0.6-1.3); GLUCOSE 201 mg/dL (74-106); POTASSIUM 4.7 mmol/L (3.5-5.1); SODIUM SERUM 132 mmol/L (136-145)
[2017-08-16 07:48] LABS: PHOSPHORUS 4.9 mg/dL (2.5-4.9)
[2017-08-16 07:49] LABS: UREA NITROGEN, BLOOD 81 mg/dL (7-18)
[2017-08-16 08:00] VITALS: BP 166/83
[2017-08-16] MEDS: GLUCERNA SHAKE 237 ML CAN PO SCH ×3 (08:00→17:00)
[2017-08-16] MEDS: ATORVASTATIN 40 MG TABLET PO SCH (08:27)
[2017-08-16] MEDS: PANTOPRAZOLE 40 MG TABLET.DR PO SCH (08:27)
[2017-08-16] MEDS: CEFTRIAXONE 1 G in IV NS 0.9% 50 ML IV SCH ×2 (08:27→20:46)
[2017-08-16] MEDS: AMIODARONE HCL 200 MG TABLET NG SCH ×3 (08:28→17:26)
[2017-08-16] MEDS: DILTIAZEM HCL CD 240 MG PO SCH (08:28)
[2017-08-16] MEDS: CARVEDILOL 12.5 MG TABLET PO SCH ×2 (08:29→20:46)
[2017-08-16] MEDS: ZYTIGA 500 MG PO SCH (08:31)
[2017-08-16] MEDS: Z GUARD REMEDY 2 OZ OINT TP SCH (13:19)
[2017-08-16 16:00] VITALS: BP 162/76
[2017-08-16 20:09] VITALS: BP 156/91
[2017-08-16] MEDS: TEMAZEPAM 15 MG CAPSULE PO PRN (20:46)
[2017-08-16] MEDS: LATANOPROST EYE DROP 0.005% 2.5 ML BOTTLE EACHEYE SCH (20:53)
[2017-08-16] MEDS ORDERED: DEXAMETHASONE 4 MG TABLET PO SCH (21:00)
[2017-08-16] MEDS: *INSULIN REGULAR(HUMULIN R)HUM 100 UNIT/ML VIAL SQ PRN (21:33)
[2017-08-17] MEDS: INSULIN GLARGINE, 100 UNIT/ML CARTRIDGE SQ SCH ×2 (00:29→21:39)
[2017-08-17] MEDS: ACETAMINOPHEN 325 MG TABLET PO SCH ×4 (00:31→18:00)
[2017-08-17] MEDS: HYDROMORPHONE INJ 2 MG/ML DISP.SYRIN IV PRN ×2 (03:56→12:21)
[2017-08-17] MEDS: BLOOD SUGAR DIAGNOSTIC 1 EACH STRIP IN SCH ×4 (06:33→21:36)
[2017-08-17 07:05] LABS: BASOPHILS % (AUTO) 0.1 % (0.0-2.0); EOSINOPHILS % (AUTO) 0.1 % (0.0-6.0); HEMATOCRIT 24 % (39-51); HEMOGLOBIN 8.5 g/dL (13.5-17.5); LYMPHOCYTES # (AUTO) 0.5 /CMM (0.8-4.8); LYMPHOCYTES % (AUTO) 2.7 % (20.0-44.0); MEAN CORPUSCULAR HGB CONC 35 g/dl (31.0-36.0); MEAN CORPUSCULAR VOLUME 88 fL (80-96); MONOCYTES # (AUTO) 0.8 /CMM (0.1-1.30); MONOCYTES % (AUTO) 4.3 % (2.0-12.0); NEUTROPHILS # (AUTO) 18.4 /CMM (1.8-8.9); NEUTROPHILS % (AUTO) 92.8 % (43.0-81.0); PLATELET COUNT (AUTO) 211 /CMM (150-450); RDW COEFFICIENT OF VARIATION 14.2 (11.5-15.0); RED BLOOD CELL COUNT(AUTO) 2.77 MIL/uL (4.5-6.0); WHITE BLOOD COUNT (AUTO) 19.7 K/uL (4.3-11.0)
[2017-08-17 07:16] LABS: CALCIUM, SERUM 7.9 mg/dL (8.5-10.1); CARBON DIOXIDE 23 mmol/L (21-32); CHLORIDE 98 mmol/L (98-107); CREATININE 4.4 mg/dL (0.6-1.3); GLUCOSE 119 mg/dL (74-106); MAGNESIUM 2.1 mg/dL (1.8-2.4); PHOSPHORUS 6.1 mg/dL (2.5-4.9); POTASSIUM 4.7 mmol/L (3.5-5.1); SODIUM SERUM 132 mmol/L (136-145)
[2017-08-17 07:27] LABS: UREA NITROGEN, BLOOD 101 mg/dL (7-18)
[2017-08-17 08:00] VITALS: BP 113/62
[2017-08-17] MEDS: DEXAMETHASONE 4 MG TABLET PO SCH ×2 (09:22→18:18)
[2017-08-17] MEDS: PANTOPRAZOLE 40 MG TABLET.DR PO SCH (09:22)
[2017-08-17] MEDS: ATORVASTATIN 40 MG TABLET PO SCH (09:22)
[2017-08-17] MEDS: Z GUARD REMEDY 2 OZ OINT TP SCH (09:22)
[2017-08-17] MEDS: ZYTIGA 500 MG PO SCH (09:31)
[2017-08-17] MEDS: GLUCERNA SHAKE 237 ML CAN PO SCH ×3 (10:47→18:18)
[2017-08-17] MEDS: DILTIAZEM HCL CD 240 MG PO SCH (10:53)
[2017-08-17] MEDS: AMIODARONE HCL 200 MG TABLET NG SCH ×3 (10:54→18:18)
[2017-08-17] MEDS: CARVEDILOL 12.5 MG TABLET PO SCH ×2 (10:54→21:37)
[2017-08-17] MEDS: CEFTRIAXONE 1 G in IV NS 0.9% 50 ML IV SCH ×2 (10:58→21:37)
[2017-08-17] MEDS: INSULIN REGULAR, HUMAN 100 UNIT/ML 3 ML VIAL SQ PRN ×2 (13:12→18:37)
[2017-08-17 16:00] VITALS: BP 139/63
[2017-08-17 18:14] LABS: APPEARANCE,URINE SL CLOUDY (CLEAR); BILIRUBIN,URINE NEGATIVE (NEGATIVE); BLOOD, URINE 3+ Ery/uL (NEGATIVE); COLOR,URINE YELLOW (YELLOW); KETONES,URINE NEGATIVE (NEGATIVE); LEUKOCYTE ESTERASE ,URINE TRACE (NEGATIVE); NITRITE, URINE NEGATIVE (NEGATIVE); PH,URINE 5.5 (5.0-8.0); PROTEIN,URINE 1+ mg/dl (NEGATIVE); UGLUCOSE 1+ mg/dL (NEGATIVE); UROBILINOGEN,URINE 0.2 EU/dL (0.2)
[2017-08-17] MEDS: *INSULIN REGULAR(HUMULIN R)HUM 100 UNIT/ML VIAL SQ PRN ×2 (18:26→21:38)
[2017-08-17 18:41] LABS: BACTERIA,URINE Few /HPF (None Seen); RBC,URINE TOO NUMEROUS TO COUN /HPF (0-2); SQUAMOUS EPITHELIAL CELL,UR Few /HPF (None Seen); WBC,URINE 0-2 /HPF (0-3)
[2017-08-17 20:00] VITALS: BP 164/72
[2017-08-17] MEDS: LATANOPROST EYE DROP 0.005% 2.5 ML BOTTLE EACHEYE SCH (21:36)
[2017-08-17 21:40] VITALS: BP 144/76
[2017-08-17 23:15] VITALS: BP 157/79
[2017-08-17] MEDS ORDERED: LORAZEPAM INJ 2 MG/ML VIAL IM PRN (23:30)
[2017-08-18] MEDS: ACETAMINOPHEN 325 MG TABLET PO SCH
[2017-08-18] MEDS ORDERED: ZIPRASIDONE MESYLATE 20 MG/VIAL VIAL IM PRN (01:00)
[2017-08-18] MEDS ORDERED: DEXTROSE 50%-WATER 50 ML DISP.SYRIN IV PRN (01:00)
[2017-08-18] MEDS ORDERED: LORAZEPAM INJ 2 MG/ML VIAL IV PRN (01:00)
[2017-08-18 01:17] VITALS: BP 123/60
[2017-08-18 03:48] VITALS: BP 105/51
[2017-08-18] MEDS: INSULIN REGULAR, HUMAN 100 UNIT/ML 3 ML VIAL SQ PRN ×3 (06:28→17:43)
[2017-08-18] MEDS: BLOOD SUGAR DIAGNOSTIC 1 EACH STRIP IN SCH ×4 (06:28→21:46)
[2017-08-18 08:00] VITALS: BP 123/76
[2017-08-18] MEDS: DILTIAZEM HCL CD 240 MG PO SCH (08:40)
[2017-08-18] MEDS: GLUCERNA SHAKE 237 ML CAN PO SCH ×3 (08:40→17:00)
[2017-08-18] MEDS: DEXAMETHASONE 4 MG TABLET PO SCH ×2 (08:41→17:40)
[2017-08-18] MEDS: AMIODARONE HCL 200 MG TABLET NG SCH ×3 (08:42→17:40)
[2017-08-18] MEDS: PANTOPRAZOLE 40 MG TABLET.DR PO SCH (08:42)
[2017-08-18] MEDS: CARVEDILOL 12.5 MG TABLET PO SCH ×2 (08:42→20:16)
[2017-08-18] MEDS: ZYTIGA 500 MG PO SCH (08:42)
[2017-08-18] MEDS: Z GUARD REMEDY 2 OZ OINT TP SCH (08:42)
[2017-08-18] MEDS: CEFTRIAXONE 1 G in IV NS 0.9% 50 ML IV SCH ×2 (08:43→20:15)
[2017-08-18] MEDS: SOD FERRIC GLUC 125 MG in IV NS 0.9% 100 ML IV SCH (15:03)
[2017-08-18 16:03] VITALS: BP 117/66
[2017-08-18] MEDS: ACETAMINOPHEN 325 MG TABLET PO PRN (16:38)
[2017-08-18 20:00] VITALS: BP 135/66
[2017-08-18] MEDS: LATANOPROST EYE DROP 0.005% 2.5 ML BOTTLE EACHEYE SCH (21:46)
[2017-08-18] MEDS: *INSULIN REGULAR(HUMULIN R)HUM 100 UNIT/ML VIAL SQ PRN (21:47)
[2017-08-18] MEDS: ATORVASTATIN 10 MG TABLET PO SCH (21:47)
[2017-08-18] MEDS: INSULIN GLARGINE, 100 UNIT/ML CARTRIDGE SQ SCH (21:48)
[2017-08-19] MEDS: BLOOD SUGAR DIAGNOSTIC 1 EACH STRIP IN SCH ×4 (05:52→21:17)
[2017-08-19] MEDS: INSULIN REGULAR, HUMAN 100 UNIT/ML 3 ML VIAL SQ PRN ×3 (05:55→19:08)
[2017-08-19 06:15] LABS: BASOPHILS % (AUTO) 0.2 % (0.0-2.0); HEMATOCRIT 24 % (39-51); HEMOGLOBIN 7.9 g/dL (13.5-17.5); LYMPHOCYTES # (AUTO) 0.4 /CMM (0.8-4.8); LYMPHOCYTES % (AUTO) 2.5 % (20.0-44.0); MEAN CORPUSCULAR HGB CONC 33 g/dl (31.0-36.0); MEAN CORPUSCULAR VOLUME 89 fL (80-96); MONOCYTES # (AUTO) 0.3 /CMM (0.1-1.30); MONOCYTES % (AUTO) 1.8 % (2.0-12.0); NEUTROPHILS # (AUTO) 14.9 /CMM (1.8-8.9); NEUTROPHILS % (AUTO) 95.5 % (43.0-81.0); PLATELET COUNT (AUTO) 213 /CMM (150-450); RDW COEFFICIENT OF VARIATION 15.1 (11.5-15.0); WHITE BLOOD COUNT (AUTO) 15.6 K/uL (4.3-11.0)
[2017-08-19 06:37] LABS: OCCULT BLOOD STOOL NEGATIVE (NEGATIVE)
[2017-08-19 06:41] LABS: ALANINE AMINOTRANSFERASE 59 U/L (12-78); ALBUMIN 1.6 g/dL (3.4-5.0); ALKALINE PHOSPHATASE 464 U/L (46-116); ASPARTATE AMINOTRANSFERASE 38 U/L (15-37); BILIRUBIN,TOTAL 0.6 mg/dL (0.2-1.0); CALCIUM, SERUM 7.9 mg/dL (8.5-10.1); CARBON DIOXIDE 22 mmol/L (21-32); CHLORIDE 95 mmol/L (98-107); CREATININE 5.4 mg/dL (0.6-1.3); GLUCOSE 253 mg/dL (74-106); MAGNESIUM 2.2 mg/dL (1.8-2.4); PHOSPHORUS 7.3 mg/dL (2.5-4.9); SODIUM SERUM 128 mmol/L (136-145); TOTAL PROTEIN, SERUM 5.2 g/dL (6.4-8.2)
[2017-08-19 06:44] LABS: UREA NITROGEN, BLOOD 123 mg/dL (7-18)
[2017-08-19 07:20] LABS: LYMPHOCYTES % (MANUAL) 1 % (16-48); MONOCYTES % (MANUAL) 1 % (0-11.0); NEUTROPHILS % (MANUAL) 98 (42-76)
[2017-08-19 08:00] VITALS: BP 104/59
[2017-08-19] MEDS: CEFTRIAXONE 1 G in IV NS 0.9% 50 ML IV SCH ×2 (08:14→21:00)
[2017-08-19] MEDS: DEXAMETHASONE 4 MG TABLET PO SCH ×2 (08:16→16:30)
[2017-08-19] MEDS: PANTOPRAZOLE 40 MG TABLET.DR PO SCH (08:16)
[2017-08-19] MEDS: AMIODARONE HCL 200 MG TABLET NG SCH ×3 (08:18→16:27)
[2017-08-19] MEDS: ZYTIGA 500 MG PO SCH (08:18)
[2017-08-19] MEDS: CARVEDILOL 12.5 MG TABLET PO SCH ×2 (08:21→21:02)
[2017-08-19] MEDS: DILTIAZEM HCL CD 240 MG PO SCH (08:21)
[2017-08-19] MEDS: Z GUARD REMEDY 2 OZ OINT TP SCH (08:24)
[2017-08-19 08:36] VITALS: BP 104/59
[2017-08-19] MEDS: GLUCERNA SHAKE 237 ML CAN PO SCH ×3 (09:15→16:30)
[2017-08-19] MEDS: SOD FERRIC GLUC 125 MG in IV NS 0.9% 100 ML IV SCH (14:34)
[2017-08-19 15:44] VITALS: BP 125/63
[2017-08-19] MEDS: ACETAMINOPHEN 325 MG TABLET PO PRN ×2 (16:32→22:43)
[2017-08-19 20:21] VITALS: BP 113/54
[2017-08-19] MEDS: ATORVASTATIN 10 MG TABLET PO SCH (21:02)
[2017-08-19] MEDS: LATANOPROST EYE DROP 0.005% 2.5 ML BOTTLE EACHEYE SCH (21:03)
[2017-08-19] MEDS: INSULIN GLARGINE, 100 UNIT/ML CARTRIDGE SQ SCH (21:19)
[2017-08-20] MEDS: LORAZEPAM INJ 2 MG/ML VIAL IV PRN ×2 (03:45→23:22)
[2017-08-20 05:56] LABS: HEMATOCRIT 23 % (39-51); HEMOGLOBIN 7.5 g/dL (13.5-17.5); LYMPHOCYTES # (AUTO) 0.3 /CMM (0.8-4.8); LYMPHOCYTES % (AUTO) 2.1 % (20.0-44.0); MEAN CORPUSCULAR HGB CONC 33 g/dl (31.0-36.0); MEAN CORPUSCULAR VOLUME 89 fL (80-96); MONOCYTES # (AUTO) 0.1 /CMM (0.1-1.30); MONOCYTES % (AUTO) 0.4 % (2.0-12.0); NEUTROPHILS # (AUTO) 12.7 /CMM (1.8-8.9); NEUTROPHILS % (AUTO) 97.5 % (43.0-81.0); PLATELET COUNT (AUTO) 195 /CMM (150-450); RDW COEFFICIENT OF VARIATION 15.1 (11.5-15.0); RED BLOOD CELL COUNT(AUTO) 2.54 MIL/uL (4.5-6.0); WHITE BLOOD COUNT (AUTO) 13.1 K/uL (4.3-11.0)
[2017-08-20 06:07] LABS: CALCIUM, SERUM 7.7 mg/dL (8.5-10.1); CARBON DIOXIDE 21 mmol/L (21-32); CHLORIDE 96 mmol/L (98-107); CREATININE 4.3 mg/dL (0.6-1.3); GLUCOSE 297 mg/dL (74-106); PHOSPHORUS 5.8 mg/dL (2.5-4.9); POTASSIUM 4.9 mmol/L (3.5-5.1); SODIUM SERUM 129 mmol/L (136-145); UREA NITROGEN, BLOOD 92 mg/dL (7-18)
[2017-08-20] MEDS: INSULIN REGULAR, HUMAN 100 UNIT/ML 3 ML VIAL SQ PRN ×3 (06:56→16:58)
[2017-08-20] MEDS: BLOOD SUGAR DIAGNOSTIC 1 EACH STRIP IN SCH ×4 (07:46→21:11)
[2017-08-20 08:00] VITALS: BP 127/74
[2017-08-20] MEDS: CEFTRIAXONE 1 G in IV NS 0.9% 50 ML IV SCH ×2 (08:49→21:00)
[2017-08-20] MEDS: AMIODARONE HCL 200 MG TABLET NG SCH ×3 (08:56→16:42)
[2017-08-20] MEDS: DILTIAZEM HCL CD 240 MG PO SCH (08:57)
[2017-08-20] MEDS: DEXAMETHASONE 4 MG TABLET PO SCH ×2 (08:57→16:43)
[2017-08-20] MEDS: PANTOPRAZOLE 40 MG TABLET.DR PO SCH (08:57)
[2017-08-20] MEDS: CARVEDILOL 12.5 MG TABLET PO SCH ×2 (08:57→22:08)
[2017-08-20] MEDS: ZYTIGA 500 MG PO SCH (08:58)
[2017-08-20] MEDS: GLUCERNA SHAKE 237 ML CAN PO SCH ×3 (09:01→16:43)
[2017-08-20] MEDS: Z GUARD REMEDY 2 OZ OINT TP SCH (09:04)
[2017-08-20] MEDS: HYDROMORPHONE INJ 2 MG/ML DISP.SYRIN IV PRN ×4 (09:41→20:56)
[2017-08-20 10:42] LABS: LYMPHOCYTES % (MANUAL) 1 % (16-48); MONOCYTES % (MANUAL) 5 % (0-11.0); NEUTROPHILS % (MANUAL) 94 (42-76)
[2017-08-20] MEDS: ACETAMINOPHEN 325 MG TABLET PO PRN (12:21)
[2017-08-20 16:00] VITALS: BP 150/70
[2017-08-20 20:00] VITALS: BP 121/77
[2017-08-20] MEDS: LATANOPROST EYE DROP 0.005% 2.5 ML BOTTLE EACHEYE SCH (21:00)
[2017-08-20] MEDS: ATORVASTATIN 10 MG TABLET PO SCH (21:00)
[2017-08-20] MEDS: INSULIN GLARGINE, 100 UNIT/ML CARTRIDGE SQ SCH (21:07)
[2017-08-20] MEDS: *INSULIN REGULAR(HUMULIN R)HUM 100 UNIT/ML VIAL SQ PRN (21:07)
[2017-08-21] MEDS: ZOLPIDEM TARTRATE 5 MG TABLET PO PRN (00:45)
[2017-08-21] MEDS: BLOOD SUGAR DIAGNOSTIC 1 EACH STRIP IN SCH ×4 (06:54→22:07)
[2017-08-21] MEDS: INSULIN REGULAR, HUMAN 100 UNIT/ML 3 ML VIAL SQ PRN ×3 (06:55→17:27)
[2017-08-21 07:22] LABS: CALCIUM, SERUM 7.8 mg/dL (8.5-10.1); CARBON DIOXIDE 22 mmol/L (21-32); CHLORIDE 99 mmol/L (98-107); CREATININE 4.3 mg/dL (0.6-1.3); GLUCOSE 216 mg/dL (74-106); PHOSPHORUS 5.9 mg/dL (2.5-4.9); POTASSIUM 5.1 mmol/L (3.5-5.1); SODIUM SERUM 132 mmol/L (136-145)
[2017-08-21 07:24] LABS: UREA NITROGEN, BLOOD 104 mg/dL (7-18)
[2017-08-21 07:37] LABS: HEMATOCRIT 22 % (39-51); HEMOGLOBIN 7.5 g/dL (13.5-17.5); LYMPHOCYTES # (AUTO) 0.3 /CMM (0.8-4.8); LYMPHOCYTES % (AUTO) 2.5 % (20.0-44.0); MEAN CORPUSCULAR HGB CONC 34 g/dl (31.0-36.0); MEAN CORPUSCULAR VOLUME 89 fL (80-96); MONOCYTES # (AUTO) 0.1 /CMM (0.1-1.30); MONOCYTES % (AUTO) 0.9 % (2.0-12.0); NEUTROPHILS # (AUTO) 12.5 /CMM (1.8-8.9); NEUTROPHILS % (AUTO) 96.6 % (43.0-81.0); PLATELET COUNT (AUTO) 169 /CMM (150-450); RDW COEFFICIENT OF VARIATION 15.2 (11.5-15.0); RED BLOOD CELL COUNT(AUTO) 2.47 MIL/uL (4.5-6.0)
[2017-08-21 08:00] VITALS: BP 124/56
[2017-08-21] MEDS: PANTOPRAZOLE 40 MG TABLET.DR PO SCH (08:57)
[2017-08-21] MEDS: GLUCERNA SHAKE 237 ML CAN PO SCH ×3 (08:57→16:29)
[2017-08-21] MEDS: DEXAMETHASONE 4 MG TABLET PO SCH ×2 (08:58→16:22)
[2017-08-21] MEDS: ZYTIGA 500 MG PO SCH (08:58)
[2017-08-21] MEDS: Z GUARD REMEDY 2 OZ OINT TP SCH (08:59)
[2017-08-21] MEDS: CEFTRIAXONE 1 G in IV NS 0.9% 50 ML IV SCH ×2 (08:59→21:58)
[2017-08-21] MEDS: AMIODARONE HCL 200 MG TABLET NG SCH ×3 (09:00→16:23)
[2017-08-21] MEDS: CARVEDILOL 12.5 MG TABLET PO SCH ×2 (09:00→21:59)
[2017-08-21] MEDS: DILTIAZEM HCL CD 240 MG PO SCH (09:00)
[2017-08-21] MEDS: ACETAMINOPHEN 325 MG TABLET PO PRN (10:31)
[2017-08-21] MEDS: HYDROMORPHONE INJ 2 MG/ML DISP.SYRIN IV PRN ×2 (11:31→19:47)
[2017-08-21] MEDS: HYDROCODONE/APAP 5/325MG 1 EACH TABLET PO PRN ×2 (14:24→23:20)
[2017-08-21 16:00] VITALS: BP 113/63
[2017-08-21] MEDS: LORAZEPAM INJ 2 MG/ML VIAL IV PRN (16:24)
[2017-08-21 20:00] VITALS: BP 136/78
[2017-08-21] MEDS: ATORVASTATIN 10 MG TABLET PO SCH (21:59)
[2017-08-21] MEDS: LATANOPROST EYE DROP 0.005% 2.5 ML BOTTLE EACHEYE SCH (22:04)
[2017-08-21] MEDS: *INSULIN REGULAR(HUMULIN R)HUM 100 UNIT/ML VIAL SQ PRN (22:12)
[2017-08-21] MEDS: INSULIN GLARGINE, 100 UNIT/ML CARTRIDGE SQ SCH (22:15)
[2017-08-21 23:26] VITALS: BP 136/78
[2017-08-22] MEDS: HYDROMORPHONE INJ 2 MG/ML DISP.SYRIN IV PRN ×4 (00:41→19:04)
[2017-08-22] MEDS: HYDROCODONE/APAP 5/325MG 1 EACH TABLET PO PRN ×2 (03:15→08:58)
[2017-08-22] MEDS: LORAZEPAM INJ 2 MG/ML VIAL IV PRN ×2 (04:41→19:04)
[2017-08-22] MEDS: BLOOD SUGAR DIAGNOSTIC 1 EACH STRIP IN SCH ×4 (06:52→21:40)
[2017-08-22] MEDS: PANTOPRAZOLE 40 MG TABLET.DR PO SCH (06:52)
[2017-08-22 07:09] LABS: EOSINOPHILS % (AUTO) 0.1 % (0.0-6.0); HEMATOCRIT 21 % (39-51); HEMOGLOBIN 7.1 g/dL (13.5-17.5); LYMPHOCYTES # (AUTO) 0.4 /CMM (0.8-4.8); LYMPHOCYTES % (AUTO) 2.8 % (20.0-44.0); MEAN CORPUSCULAR HGB CONC 33 g/dl (31.0-36.0); MEAN CORPUSCULAR VOLUME 89 fL (80-96); MONOCYTES # (AUTO) 0.6 /CMM (0.1-1.30); MONOCYTES % (AUTO) 4.4 % (2.0-12.0); NEUTROPHILS # (AUTO) 12.4 /CMM (1.8-8.9); NEUTROPHILS % (AUTO) 92.7 % (43.0-81.0); PLATELET COUNT (AUTO) 161 /CMM (150-450); RDW COEFFICIENT OF VARIATION 15.1 (11.5-15.0); RED BLOOD CELL COUNT(AUTO) 2.39 MIL/uL (4.5-6.0); WHITE BLOOD COUNT (AUTO) 13.4 K/uL (4.3-11.0)
[2017-08-22 08:00] VITALS: BP 139/62
[2017-08-22 08:15] LABS: CALCIUM, SERUM 7.7 mg/dL (8.5-10.1); CARBON DIOXIDE 25 mmol/L (21-32); CHLORIDE 98 mmol/L (98-107); CREATININE 3.8 mg/dL (0.6-1.3); GLUCOSE 73 mg/dL (74-106); MAGNESIUM 1.9 mg/dL (1.8-2.4); POTASSIUM 4.4 mmol/L (3.5-5.1); SODIUM SERUM 134 mmol/L (136-145)
[2017-08-22 08:17] LABS: UREA NITROGEN, BLOOD 89 mg/dL (7-18)
[2017-08-22] MEDS: ZYTIGA 500 MG PO SCH (08:56)
[2017-08-22] MEDS: DEXAMETHASONE 4 MG TABLET PO SCH ×2 (08:56→17:19)
[2017-08-22] MEDS: GLUCERNA SHAKE 237 ML CAN PO SCH ×3 (08:56→17:20)
[2017-08-22] MEDS: DILTIAZEM HCL CD 240 MG PO SCH (08:57)
[2017-08-22] MEDS: CARVEDILOL 12.5 MG TABLET PO SCH ×2 (08:57→21:00)
[2017-08-22] MEDS: Z GUARD REMEDY 2 OZ OINT TP SCH (08:58)
[2017-08-22] MEDS: AMIODARONE HCL 200 MG TABLET NG SCH ×3 (09:01→17:00)
[2017-08-22 15:31] LABS: BASOPHILS % (AUTO) 0.1 % (0.0-2.0); EOSINOPHILS % (AUTO) 0.1 % (0.0-6.0); HEMATOCRIT 23 % (39-51); HEMOGLOBIN 7.5 g/dL (13.5-17.5); LYMPHOCYTES # (AUTO) 0.3 /CMM (0.8-4.8); LYMPHOCYTES % (AUTO) 2.2 % (20.0-44.0); MEAN CORPUSCULAR HGB CONC 33 g/dl (31.0-36.0); MEAN CORPUSCULAR VOLUME 89 fL (80-96); MONOCYTES # (AUTO) 0.4 /CMM (0.1-1.30); MONOCYTES % (AUTO) 2.8 % (2.0-12.0); NEUTROPHILS # (AUTO) 13.2 /CMM (1.8-8.9); NEUTROPHILS % (AUTO) 94.8 % (43.0-81.0); PLATELET COUNT (AUTO) 162 /CMM (150-450); RDW COEFFICIENT OF VARIATION 15.3 (11.5-15.0); RED BLOOD CELL COUNT(AUTO) 2.53 MIL/uL (4.5-6.0)
[2017-08-22 15:56] VITALS: BP 97/51
[2017-08-22] MEDS: INSULIN REGULAR, HUMAN 100 UNIT/ML 3 ML VIAL SQ PRN (19:05)
[2017-08-22 20:00] VITALS: BP 109/50
[2017-08-22] MEDS: ATORVASTATIN 10 MG TABLET PO SCH (21:39)
[2017-08-22] MEDS: LATANOPROST EYE DROP 0.005% 2.5 ML BOTTLE EACHEYE SCH (21:51)
[2017-08-22] MEDS: *INSULIN REGULAR(HUMULIN R)HUM 100 UNIT/ML VIAL SQ PRN (21:53)
[2017-08-22] MEDS: INSULIN GLARGINE, 100 UNIT/ML CARTRIDGE SQ SCH (21:54)
[2017-08-23] VITALS (7 sets, daily range): BP systolic 100–137; BP diastolic 48–68
[2017-08-23] MEDS: HYDROMORPHONE INJ 2 MG/ML DISP.SYRIN IV PRN ×4 (01:45→18:53)
[2017-08-23] MEDS: LORAZEPAM INJ 2 MG/ML VIAL IV PRN ×3 (03:36→22:49)
[2017-08-23 05:58] LABS: HEMATOCRIT 21 % (39-51); LYMPHOCYTES # (AUTO) 0.2 /CMM (0.8-4.8); LYMPHOCYTES % (AUTO) 2.2 % (20.0-44.0); MEAN CORPUSCULAR HGB CONC 33 g/dl (31.0-36.0); MEAN CORPUSCULAR VOLUME 90 fL (80-96); MONOCYTES # (AUTO) 0.2 /CMM (0.1-1.30); MONOCYTES % (AUTO) 2.1 % (2.0-12.0); NEUTROPHILS # (AUTO) 10.2 /CMM (1.8-8.9); NEUTROPHILS % (AUTO) 95.7 % (43.0-81.0); PLATELET COUNT (AUTO) 141 /CMM (150-450); RDW COEFFICIENT OF VARIATION 15.1 (11.5-15.0); RED BLOOD CELL COUNT(AUTO) 2.34 MIL/uL (4.5-6.0); WHITE BLOOD COUNT (AUTO) 10.6 K/uL (4.3-11.0)
[2017-08-23] MEDS: BLOOD SUGAR DIAGNOSTIC 1 EACH STRIP IN SCH ×4 (05:59→21:43)
[2017-08-23] MEDS: INSULIN REGULAR, HUMAN 100 UNIT/ML 3 ML VIAL SQ PRN ×5 (06:02→21:58)
[2017-08-23 06:20] LABS: CALCIUM, SERUM 7.6 mg/dL (8.5-10.1); CARBON DIOXIDE 24 mmol/L (21-32); CHLORIDE 98 mmol/L (98-107); CREATININE 4.3 mg/dL (0.6-1.3); GLUCOSE 229 mg/dL (74-106); POTASSIUM 5.4 mmol/L (3.5-5.1); SODIUM SERUM 132 mmol/L (136-145)
[2017-08-23 06:21] LABS: UREA NITROGEN, BLOOD 103 mg/dL (7-18)
[2017-08-23] MEDS: ZYTIGA 500 MG PO SCH (08:43)
[2017-08-23] MEDS: GLUCERNA SHAKE 237 ML CAN PO SCH ×3 (08:51→17:55)
[2017-08-23] MEDS: AMIODARONE HCL 200 MG TABLET NG SCH ×3 (08:52→17:56)
[2017-08-23] MEDS: DEXAMETHASONE 4 MG TABLET PO SCH ×2 (08:53→17:55)
[2017-08-23] MEDS: DILTIAZEM HCL CD 240 MG PO SCH (08:53)
[2017-08-23] MEDS: PANTOPRAZOLE 40 MG TABLET.DR PO SCH (08:53)
[2017-08-23] MEDS: CARVEDILOL 12.5 MG TABLET PO SCH ×2 (08:54→21:43)
[2017-08-23] MEDS: Z GUARD REMEDY 2 OZ OINT TP SCH (08:54)
[2017-08-23] MEDS: HYDROCODONE/APAP 5/325MG 1 EACH TABLET PO PRN (08:57)
[2017-08-23] MEDS: LATANOPROST EYE DROP 0.005% 2.5 ML BOTTLE EACHEYE SCH (21:43)
[2017-08-23] MEDS: ATORVASTATIN 10 MG TABLET PO SCH (21:43)
[2017-08-23] MEDS: INSULIN GLARGINE, 100 UNIT/ML CARTRIDGE SQ SCH (21:58)
[2017-08-23] MEDS: *INSULIN REGULAR(HUMULIN R)HUM 100 UNIT/ML VIAL SQ PRN (22:00)
[2017-08-24] MEDS: HYDROMORPHONE INJ 2 MG/ML DISP.SYRIN IV PRN ×4 (03:24→21:44)
[2017-08-24 06:41] LABS: EOSINOPHILS % (AUTO) 0.1 % (0.0-6.0); HEMATOCRIT 24 % (39-51); HEMOGLOBIN 8.2 g/dL (13.5-17.5); LYMPHOCYTES # (AUTO) 0.2 /CMM (0.8-4.8); LYMPHOCYTES % (AUTO) 2.3 % (20.0-44.0); MEAN CORPUSCULAR HGB CONC 34 g/dl (31.0-36.0); MEAN CORPUSCULAR VOLUME 90 fL (80-96); MONOCYTES # (AUTO) 0.1 /CMM (0.1-1.30); MONOCYTES % (AUTO) 0.9 % (2.0-12.0); NEUTROPHILS % (AUTO) 96.7 % (43.0-81.0); PLATELET COUNT (AUTO) 128 /CMM (150-450); RDW COEFFICIENT OF VARIATION 15.3 (11.5-15.0); RED BLOOD CELL COUNT(AUTO) 2.67 MIL/uL (4.5-6.0); WHITE BLOOD COUNT (AUTO) 10.3 K/uL (4.3-11.0)
[2017-08-24 06:56] LABS: CALCIUM, SERUM 7.7 mg/dL (8.5-10.1); CARBON DIOXIDE 28 mmol/L (21-32); CHLORIDE 98 mmol/L (98-107); CREATININE 3.8 mg/dL (0.6-1.3); GLUCOSE 194 mg/dL (74-106); POTASSIUM 4.6 mmol/L (3.5-5.1); SODIUM SERUM 135 mmol/L (136-145); UREA NITROGEN, BLOOD 78 mg/dL (7-18)
[2017-08-24] MEDS ORDERED: ANESTHESIA TRAY IN PYXIS 1 EA TRAY MC ONE (07:00)
[2017-08-24] MEDS ORDERED: IOHEXOL 240MG/ML 0 ML IV ONE (07:06)
[2017-08-24] MEDS ORDERED: HEPARIN SODIUM, PORCINE 1,000 UNIT/ML VIAL ONE (07:07)
[2017-08-24] MEDS ORDERED: LIDOCAINE 1% INJ 50 ML MDV IJ ONE (07:07)
[2017-08-24] MEDS ORDERED: FENTANYL PF 100MCG/2ML AMPUL ONE (07:17)
[2017-08-24] MEDS ORDERED: BUPIVACAINE 0.25% 75 MG/30 ML VIAL ONE (07:52)
[2017-08-24] MEDS: BLOOD SUGAR DIAGNOSTIC 1 EACH STRIP IN SCH ×4 (09:02→21:34)
[2017-08-24] MEDS: AMIODARONE HCL 200 MG TABLET NG SCH ×3 (09:03→18:38)
[2017-08-24] MEDS: PANTOPRAZOLE 40 MG TABLET.DR PO SCH (09:03)
[2017-08-24] MEDS: ZYTIGA 500 MG PO SCH (09:03)
[2017-08-24] MEDS: DILTIAZEM HCL CD 240 MG PO SCH (09:03)
[2017-08-24] MEDS: DEXAMETHASONE 4 MG TABLET PO SCH ×2 (09:03→16:36)
[2017-08-24] MEDS: CARVEDILOL 12.5 MG TABLET PO SCH ×2 (09:04→21:34)
[2017-08-24] MEDS: Z GUARD REMEDY 2 OZ OINT TP SCH (09:04)
[2017-08-24] MEDS: GLUCERNA SHAKE 237 ML CAN PO SCH ×3 (09:05→18:38)
[2017-08-24] MEDS: INSULIN REGULAR, HUMAN 100 UNIT/ML 3 ML VIAL SQ PRN ×2 (12:28→18:40)
[2017-08-24] MEDS: LORAZEPAM INJ 2 MG/ML VIAL IV PRN (13:41)
[2017-08-24 16:00] VITALS: BP 132/89
[2017-08-24] MEDS: MORPHINE SULFATE SR 15 MG TABLET.SA PO SCH (18:42)
[2017-08-24 20:00] VITALS: BP 116/70
[2017-08-24] MEDS: LATANOPROST EYE DROP 0.005% 2.5 ML BOTTLE EACHEYE SCH (21:34)
[2017-08-24] MEDS: ATORVASTATIN 10 MG TABLET PO SCH (21:35)
[2017-08-24] MEDS: INSULIN GLARGINE, 100 UNIT/ML CARTRIDGE SQ SCH (21:41)
[2017-08-24] MEDS: *INSULIN REGULAR(HUMULIN R)HUM 100 UNIT/ML VIAL SQ PRN (21:43)
[2017-08-24] MEDS: ZOLPIDEM TARTRATE 5 MG TABLET PO PRN (23:08)
[2017-08-25] MEDS: HYDROCODONE/APAP 10/325MG 1 EA TABLET PO PRN ×2 (00:33→12:20)
[2017-08-25] MEDS: LORAZEPAM INJ 2 MG/ML VIAL IV PRN ×2 (00:46→16:53)
[2017-08-25] MEDS: INSULIN REGULAR, HUMAN 100 UNIT/ML 3 ML VIAL SQ PRN ×3 (06:41→17:39)
[2017-08-25] MEDS: BLOOD SUGAR DIAGNOSTIC 1 EACH STRIP IN SCH ×4 (06:43→21:13)
[2017-08-25 07:10] LABS: HEMATOCRIT 23 % (39-51); HEMOGLOBIN 7.9 g/dL (13.5-17.5); LYMPHOCYTES # (AUTO) 0.3 /CMM (0.8-4.8); LYMPHOCYTES % (AUTO) 3.3 % (20.0-44.0); MEAN CORPUSCULAR HGB CONC 34 g/dl (31.0-36.0); MEAN CORPUSCULAR VOLUME 90 fL (80-96); MONOCYTES # (AUTO) 0.3 /CMM (0.1-1.30); MONOCYTES % (AUTO) 3.4 % (2.0-12.0); NEUTROPHILS # (AUTO) 7.1 /CMM (1.8-8.9); NEUTROPHILS % (AUTO) 93.3 % (43.0-81.0); PLATELET COUNT (AUTO) 113 /CMM (150-450); RDW COEFFICIENT OF VARIATION 15.7 (11.5-15.0); RED BLOOD CELL COUNT(AUTO) 2.57 MIL/uL (4.5-6.0); WHITE BLOOD COUNT (AUTO) 7.6 K/uL (4.3-11.0)
[2017-08-25 07:43] LABS: CALCIUM, SERUM 7.6 mg/dL (8.5-10.1); CARBON DIOXIDE 26 mmol/L (21-32); CHLORIDE 97 mmol/L (98-107); CREATININE 4.3 mg/dL (0.6-1.3); GLUCOSE 186 mg/dL (74-106); SODIUM SERUM 133 mmol/L (136-145)
[2017-08-25 07:44] LABS: UREA NITROGEN, BLOOD 90 mg/dL (7-18)
[2017-08-25 07:53] VITALS: BP 113/53
[2017-08-25] MEDS: PANTOPRAZOLE 40 MG TABLET.DR PO SCH (08:26)
[2017-08-25] MEDS: MORPHINE SULFATE SR 15 MG TABLET.SA PO SCH ×2 (08:27→21:15)
[2017-08-25] MEDS: ZYTIGA 500 MG PO SCH (08:28)
[2017-08-25] MEDS: DEXAMETHASONE 4 MG TABLET PO SCH ×2 (08:28→17:31)
[2017-08-25] MEDS: Z GUARD REMEDY 2 OZ OINT TP SCH (08:29)
[2017-08-25] MEDS: GLUCERNA SHAKE 237 ML CAN PO SCH ×3 (08:31→17:31)
[2017-08-25] MEDS: CARVEDILOL 12.5 MG TABLET PO SCH ×2 (09:00→21:14)
[2017-08-25] MEDS: AMIODARONE HCL 200 MG TABLET NG SCH ×3 (09:00→17:32)
[2017-08-25] MEDS: DILTIAZEM HCL CD 240 MG PO SCH (09:00)
[2017-08-25 16:00] VITALS: BP 115/70
[2017-08-25] MEDS: HYDROMORPHONE INJ 2 MG/ML DISP.SYRIN IV PRN (19:38)
[2017-08-25 19:45] VITALS: BP 118/60
[2017-08-25 20:00] VITALS: BP 118/60
[2017-08-25] MEDS: ATORVASTATIN 10 MG TABLET PO SCH (21:15)
[2017-08-25] MEDS: LATANOPROST EYE DROP 0.005% 2.5 ML BOTTLE EACHEYE SCH (21:17)
[2017-08-25] MEDS: INSULIN GLARGINE, 100 UNIT/ML CARTRIDGE SQ SCH (21:18)
[2017-08-25] MEDS: *INSULIN REGULAR(HUMULIN R)HUM 100 UNIT/ML VIAL SQ PRN (21:22)
[2017-08-25] MEDS ORDERED: LORAZEPAM INJ 2 MG/ML VIAL IV PRN (22:30)
[2017-08-26] MEDS: HYDROMORPHONE INJ 2 MG/ML DISP.SYRIN IV PRN (00:53)
[2017-08-26] MEDS: LORAZEPAM INJ 2 MG/ML VIAL IV PRN (05:14)
[2017-08-26] MEDS: BLOOD SUGAR DIAGNOSTIC 1 EACH STRIP IN SCH ×2 (06:33→12:38)
[2017-08-26] MEDS: INSULIN REGULAR, HUMAN 100 UNIT/ML 3 ML VIAL SQ PRN (06:36)
[2017-08-26 07:26] LABS: BASOPHILS % (AUTO) 0.1 % (0.0-2.0); EOSINOPHILS % (AUTO) 0.2 % (0.0-6.0); HEMATOCRIT 27 % (39-51); HEMOGLOBIN 9.1 g/dL (13.5-17.5); LYMPHOCYTES # (AUTO) 0.3 /CMM (0.8-4.8); LYMPHOCYTES % (AUTO) 3.1 % (20.0-44.0); MEAN CORPUSCULAR HGB CONC 34 g/dl (31.0-36.0); MEAN CORPUSCULAR VOLUME 91 fL (80-96); MONOCYTES # (AUTO) 0.4 /CMM (0.1-1.30); MONOCYTES % (AUTO) 4.5 % (2.0-12.0); NEUTROPHILS # (AUTO) 8.4 /CMM (1.8-8.9); NEUTROPHILS % (AUTO) 92.1 % (43.0-81.0); PLATELET COUNT (AUTO) 127 /CMM (150-450); RDW COEFFICIENT OF VARIATION 15.8 (11.5-15.0); RED BLOOD CELL COUNT(AUTO) 2.97 MIL/uL (4.5-6.0); WHITE BLOOD COUNT (AUTO) 9.1 K/uL (4.3-11.0)
[2017-08-26] MEDS: PANTOPRAZOLE 40 MG TABLET.DR PO SCH (07:30)
[2017-08-26 07:45] LABS: CALCIUM, SERUM 8.1 mg/dL (8.5-10.1); CARBON DIOXIDE 25 mmol/L (21-32); CHLORIDE 97 mmol/L (98-107); CREATININE 4.6 mg/dL (0.6-1.3); GLUCOSE 188 mg/dL (74-106); POTASSIUM 5.5 mmol/L (3.5-5.1); SODIUM SERUM 132 mmol/L (136-145)
[2017-08-26 07:47] LABS: UREA NITROGEN, BLOOD 101 mg/dL (7-18)
[2017-08-26 07:52] VITALS: BP 145/80
[2017-08-26] MEDS: AMIODARONE HCL 200 MG TABLET NG SCH (09:00)
[2017-08-26] MEDS: DILTIAZEM HCL CD 240 MG PO SCH (09:00)
[2017-08-26] MEDS: CARVEDILOL 12.5 MG TABLET PO SCH (09:00)
[2017-08-26] MEDS: GLUCERNA SHAKE 237 ML CAN PO SCH ×2 (09:59→12:39)
[2017-08-26] MEDS: MORPHINE SULFATE SR 15 MG TABLET.SA PO SCH (10:00)
[2017-08-26] MEDS: DEXAMETHASONE 4 MG TABLET PO SCH (10:00)
[2017-08-26] MEDS: Z GUARD REMEDY 2 OZ OINT TP SCH (10:02)
[2017-08-26] MEDS ORDERED: Insulin Glargine,Hum SQ (10:53)
[2017-08-26] MEDS ORDERED: AMIO200T7 NG (10:53)
[2017-08-26] MEDS ORDERED: INSU100V28 SQ (10:53)
[2017-08-26] MEDS: ZYTIGA 500 MG PO SCH (11:27)
[2017-08-26] MEDS: HYDROCODONE/APAP 10/325MG 1 EA TABLET PO PRN (12:37)
[2017-09-20] MEDS ORDERED: CEFTRIAXONE 1 G in IV NS 0.9% 50 ML IV SCH (12:00)
== END 2017-08-26 13:26 | DRG 871 ==
LOC: ER 10:22 → EDSEX 10:22 → MED 13:12 → TELE 15:46 → MED 08-04 09:02 → ICU 08-06 16:53 → TELE-TD 08-12 05:54 → TELE1 08-12 10:12 → MEDSG1 08-13 11:16 → MEDSG2 08-15 06:05
PROVIDERS: ADMIT Nurse Practitioner Acute Care; ATTEND Nurse Practitioner Acute Care
PROC: 5A1945Z Respiratory Ventilation, 24-96 Consecutive Hours (ICD-10-PCS; principal; 2017-08-07)
PROC: 0BH17EZ Insertion of Endotracheal Airway into Trachea, Via Natural or Artificial Opening (ICD-10-PCS; 2017-08-07)
PROC: 5A09357 Assistance with Respiratory Ventilation, Less than 24 Consecutive Hours, Continuous Positive Airway Pressure (ICD-10-PCS; 2017-08-07)
PROC: 5A2204Z Restoration of Cardiac Rhythm, Single (ICD-10-PCS; 2017-08-07)
PROC: 5A1D70Z Performance of Urinary Filtration, Intermittent, Less than 6 Hours Per Day (ICD-10-PCS; 2017-08-07)
PROC: 02HV33Z Insertion of Infusion Device into Superior Vena Cava, Percutaneous Approach (ICD-10-PCS; 2017-08-07)
PROC: B548ZZA Ultrasonography of Superior Vena Cava, Guidance (ICD-10-PCS; 2017-08-07)
PROC: 06HY33Z Insertion of Infusion Device into Lower Vein, Percutaneous Approach (ICD-10-PCS; 2017-08-07)
PROC: 5A1D70Z Performance of Urinary Filtration, Intermittent, Less than 6 Hours Per Day (ICD-10-PCS; 2017-08-08)
PROC: 5A1D70Z Performance of Urinary Filtration, Intermittent, Less than 6 Hours Per Day (ICD-10-PCS; 2017-08-10)
PROC: 5A1D70Z Performance of Urinary Filtration, Intermittent, Less than 6 Hours Per Day (ICD-10-PCS; 2017-08-11)
PROC: 5A1D70Z Performance of Urinary Filtration, Intermittent, Less than 6 Hours Per Day (ICD-10-PCS; 2017-08-13)
PROC: 5A1D70Z Performance of Urinary Filtration, Intermittent, Less than 6 Hours Per Day (ICD-10-PCS; 2017-08-15)
PROC: 5A1D70Z Performance of Urinary Filtration, Intermittent, Less than 6 Hours Per Day (ICD-10-PCS; 2017-08-17)
PROC: 5A1D70Z Performance of Urinary Filtration, Intermittent, Less than 6 Hours Per Day (ICD-10-PCS; 2017-08-19)
PROC: 5A1D70Z Performance of Urinary Filtration, Intermittent, Less than 6 Hours Per Day (ICD-10-PCS; 2017-08-21)
PROC: 30233N1 Transfusion of Nonautologous Red Blood Cells into Peripheral Vein, Percutaneous Approach (ICD-10-PCS; 2017-08-23)
PROC: 5A1D70Z Performance of Urinary Filtration, Intermittent, Less than 6 Hours Per Day (ICD-10-PCS; 2017-08-23)
PROC: 02HV33Z Insertion of Infusion Device into Superior Vena Cava, Percutaneous Approach (ICD-10-PCS; 2017-08-24)
PROC: B548ZZA Ultrasonography of Superior Vena Cava, Guidance (ICD-10-PCS; 2017-08-24)
PROC: 5A1D70Z Performance of Urinary Filtration, Intermittent, Less than 6 Hours Per Day (ICD-10-PCS; 2017-08-25)
DX: A41.01 Sepsis due to Methicillin susceptible Staphylococcus aureus (principal); E43 Unspecified severe protein-calorie malnutrition; J69.0 Pneumonitis due to inhalation of food and vomit; G06.2 Extradural and subdural abscess, unspecified; J15.211 Pneumonia due to Methicillin susceptible Staphylococcus aureus; N17.0 Acute kidney failure with tubular necrosis; J96.01 Acute respiratory failure with hypoxia; J96.02 Acute respiratory failure with hypercapnia; I48.91 Unspecified atrial fibrillation; C79.51 Secondary malignant neoplasm of bone; I48.92 Unspecified atrial flutter; R65.21 Severe sepsis with septic shock; G92 Toxic encephalopathy; D68.59 Other primary thrombophilia; E87.2 Acidosis; E87.1 Hypo-osmolality and hyponatremia; E66.2 Morbid (severe) obesity with alveolar hypoventilation; N39.0 Urinary tract infection, site not specified; I50.30 Unspecified diastolic (congestive) heart failure; I13.0 Hypertensive heart and chronic kidney disease with heart failure and stage 1 through stage 4 chronic kidney disease, or unspecified chronic kidney disease; E11.22 Type 2 diabetes mellitus with diabetic chronic kidney disease; E11.65 Type 2 diabetes mellitus with hyperglycemia; C61 Malignant neoplasm of prostate; D63.8 Anemia in other chronic diseases classified elsewhere; N18.9 Chronic kidney disease, unspecified; E78.5 Hyperlipidemia, unspecified; F41.9 Anxiety disorder, unspecified; T40.605A Adverse effect of unspecified narcotics, initial encounter; Y92.89 Other specified places as the place of occurrence of the external cause; E80.6 Other disorders of bilirubin metabolism; G31.84 Mild cognitive impairment of uncertain or unknown etiology; K59.00 Constipation, unspecified; Z68.31 Body mass index [BMI] 31.0-31.9, adult; D72.825 Bandemia; E87.5 Hyperkalemia; S30.0XXA Contusion of lower back and pelvis, initial encounter; X58.XXXA Exposure to other specified factors, initial encounter; T38.0X5A Adverse effect of glucocorticoids and synthetic analogues, initial encounter; D72.829 Elevated white blood cell count, unspecified; Z92.3 Personal history of irradiation; Z85.528 Personal history of other malignant neoplasm of kidney; M47.816 Spondylosis without myelopathy or radiculopathy, lumbar region; R31.9 Hematuria, unspecified; R60.9 Edema, unspecified; M48.05 Spinal stenosis, thoracolumbar region; M46.40 Discitis, unspecified, site unspecified
CPT/HCPCS: 31720; 36415; 36600; 70450-TC; 71045-TC; 72131-TC; 72146-TC; 72148-TC; 76856-TC; 80048-TC; 80053-TC; 80061-TC; 80076-TC; 80202-TC; 81000-TC; 82272-TC; 82550-TC; 82570-TC; 82728-TC; 82746; 82784; 82803-TC; 82962-TC; 83540-TC; 83605-TC; 83735-TC; 83970; 84100-TC; 84153-TC; 84154-TC; 84155; 84155-TC; 84165; 84300-TC; 85025-TC; 85730-TC; 86334; 86704; 86705; 86706; 86803; 86850-TC; 86921-TC; 87040-TC; 87070-TC; 87081-TC; 87086-TC; 87340; 90935-TC; 92611-TC; 93307-TC; 94003-TC; 94799-TC; 97110-TC; 97530-TC; A4216; A4606; A6402; A6403; C1750; C1751; J0690; J0696; J1100; J1170; J1644; J1815; J2060; J2405; J2543; J2916; J3010; J3370; J3486; J3490; J7030; J7040; J7050; J7060; J7070; J8540; P9016-BL; P9047; Q9966; Z7610

== ENCOUNTER 2017-08-28 15:36 | Inpatient (IN) | payer MEDICARE, BC ==
[~2017-08-28] VITALS: Ht 165.1 cm; Wt 94.0 kg
[2017-08-28] VITALS (13 sets, daily range): BP systolic 79–122; BP diastolic 25–92
[~2017-08-28 15:36] MED LIST: ABIR500T PO; ALPR0.5T8 PO; AMIO200T7 NG; ATOR40TA PO; CARV25TA2 PO; DILT240C2 PO; INSU100V28 SQ; Insulin Glargine,Hum SQ; LATA2.5D7 EACHEYE; PRED5TAB PO; VALS320T2 PO
--- NOTE | 2017-08-28 15:40 | NUR ---
[facility] 88 [facility], NO DIALYSIS TODAY. PATIENT IS AWAKE,APPEARS WEAK. RESPIRATION EVEN AND UNLABORED. NO CHEST PAIN, NO SOB. PATIENT NOT IN DISTRESS. SKIN IS WARM TO TOUCH AND NON DIAPHORETIC. PATIENT IS AFEBRILE. GOWNED PATIENT AND CONNECTED PATIENT TO TELE MONITOR. PATIENT KAMRYN ON TELE MONITOR. BP REMAINS ON LOW SIDE. EKMEDJIKIRSTY AWARE
--- NOTE | 2017-08-28 15:53 | NUR ---
AND DAUGHTER AT BEDSIDE, VERIFIED THAT HE DOES NOT HAVE AN ADVANCE DIRECTIVE AND THAT HE IS A FULL CODE AND THEY WANT EVERYTHING DONE ON HIM
[2017-08-28] MEDS ORDERED: PIPERACILLIN /TAZOBACTAM 3.375 G in IV D5W 50 ML IV ONE (16:00)
[2017-08-28] MEDS ORDERED: VANCOMYCIN 1 GM in IV D5W 250 ML IV ONE (16:00)
[2017-08-28] MEDS ORDERED: IV NS 0.9% 1,000 ML BAG IV ONE (16:00)
[2017-08-28 16:02] LABS: BASOPHILS # (AUTO) 0.1 /CMM (0.0-0.2); BASOPHILS % (AUTO) 1.6 % (0.0-2.0); EOSINOPHILS % (AUTO) 0.1 % (0.0-6.0); HEMATOCRIT 22 % (39-51); HEMOGLOBIN 7.6 g/dL (13.5-17.5); LYMPHOCYTES # (AUTO) 0.2 /CMM (0.8-4.8); LYMPHOCYTES % (AUTO) 3.6 % (20.0-44.0); MEAN CORPUSCULAR HGB CONC 35 g/dl (31.0-36.0); MEAN CORPUSCULAR VOLUME 90 fL (80-96); MONOCYTES # (AUTO) 0.2 /CMM (0.1-1.30); MONOCYTES % (AUTO) 2.7 % (2.0-12.0); NEUTROPHILS # (AUTO) 5.1 /CMM (1.8-8.9); PLATELET COUNT (AUTO) 102 /CMM (150-450); RDW COEFFICIENT OF VARIATION 15.6 (11.5-15.0); RED BLOOD CELL COUNT(AUTO) 2.42 MIL/uL (4.5-6.0); WHITE BLOOD COUNT (AUTO) 5.6 K/uL (4.3-11.0)
[2017-08-28 16:15] LABS: INR 0.97 (0.85-1.15)
[2017-08-28 16:26] LABS: ALANINE AMINOTRANSFERASE 23 U/L (12-78); ALBUMIN 1.8 g/dL (3.4-5.0); ALKALINE PHOSPHATASE 323 U/L (46-116); ASPARTATE AMINOTRANSFERASE 35 U/L (15-37); B-TYPE NATRIURETIC PEPTIDE 2735 PG/ML (0-125); BILIRUBIN,DIRECT 0.4 mg/dL (0.0-0.2); BILIRUBIN,TOTAL 0.8 mg/dL (0.2-1.0); CALCIUM, SERUM 7.5 mg/dL (8.5-10.1); CARBON DIOXIDE 26 mmol/L (21-32); CHLORIDE 98 mmol/L (98-107); CREATININE 5.4 mg/dL (0.6-1.3); GLUCOSE 221 mg/dL (74-106); POTASSIUM 5.7 mmol/L (3.5-5.1); SODIUM SERUM 132 mmol/L (136-145); TOTAL PROTEIN, SERUM 4.9 g/dL (6.4-8.2)
[2017-08-28 16:28] LABS: UREA NITROGEN, BLOOD 104 mg/dL (7-18)
[2017-08-28 16:30] LABS: BASOPHILS % (MANUAL) 0 % (0.0-2.0); EOSINOPHILS % (MANUAL) 0 % (0-4); LYMPHOCYTES % (MANUAL) 6 % (16-48); MONOCYTES % (MANUAL) 3 % (0-11.0); NEUTROPHILS % (MANUAL) 91 (42-76)
[2017-08-28 16:33] LABS: TROPONIN I 0.077 ng/mL (0.00-0.056)
[2017-08-28 17:01] LABS: APPEARANCE,URINE Slightly Cloudy (CLEAR); BILIRUBIN,URINE Negative (NEGATIVE); BLOOD, URINE Large Ery/uL (NEGATIVE); COLOR,URINE Yellow (YELLOW); KETONES,URINE Negative (NEGATIVE); LEUKOCYTE ESTERASE ,URINE Negative (NEGATIVE); NITRITE, URINE Negative (NEGATIVE); PROTEIN,URINE 100 mg/dl (NEGATIVE); UGLUCOSE Negative (NEGATIVE); UROBILINOGEN,URINE 0.2 EU/dL (0.2)
[2017-08-28 17:21] LABS: BACTERIA,URINE Moderate /HPF (None Seen); RBC,URINE 21-50 /HPF (0-2); SQUAMOUS EPITHELIAL CELL,UR Rare /HPF (None Seen); WBC,URINE 0-3 /HPF (0-3)
[2017-08-28 17:22] LABS: URINE AMORPHOUS URATE Moderate /HPF (None Seen)
[2017-08-28] MEDS ORDERED: NOREPINEPHRINE 8 MG in IV D5W 500 ML IV PRN ×2 (17:30→19:00)
--- NOTE | 2017-08-28 17:52 | NUR ---
INITIATED LEVOPHED THROUGH RAC 20G PER DR WOLFF. INITIATED AT 5MCG/MIN (20.25 ML/HR) PER MD. NO SIGNS OF INFILTRATION NOTED. IVF ONGOING.
--- NOTE | 2017-08-28 18:18 | NUR ---
ROOM CHANGED TO 260
--- NOTE | 2017-08-28 18:22 | NUR ---
REPORT GIVEN TO JESSE WELLS FOR ADMISSION TO ICU RM 260. TOLERATING ON LEVOPHED AT 5MCG/MIN, NO SIGNS OF INFILTRATION NOTED.
[2017-08-28] MEDS ORDERED: IV NS 0.9% 1,000 ML IV PRN (18:35)
--- NOTE | 2017-08-28 18:38 | NUR ---
DR WOLFF AT BEDSIDE FOR CENTRAL LINE INSERTION
[2017-08-28] MEDS ORDERED: ONDANSETRON HCL/PF 4 MG/2 ML VIAL IVP PRN (19:00)
[2017-08-28] MEDS ORDERED: MAGNESIUM HYDROXIDE 30 ML UDC PO PRN (19:00)
[2017-08-28] MEDS ORDERED: Z GUARD REMEDY 2 OZ OINT TP PRN (19:00)
[2017-08-28] MEDS ORDERED: MAG HYDROX/AL HYDROX/SIMETH 30 ML UDC PO PRN (19:00)
[2017-08-28] MEDS ORDERED: ZOLPIDEM TARTRATE 5 MG TABLET PO PRN (19:00)
--- NOTE | 2017-08-28 19:03 | NUR ---
REPORT GIVEN TO KIKO WELLS FOR ANGEL
--- NOTE | 2017-08-28 19:25 | NUR ---
RUCHING MACHINE OPERATOR AT BEDSIDE
[2017-08-28 19:52] LABS: APPEARANCE,URINE TURBID (CLEAR); BILIRUBIN,URINE NEGATIVE (NEGATIVE); BLOOD, URINE 3+ Ery/uL (NEGATIVE); COLOR,URINE BROWN (YELLOW); KETONES,URINE NEGATIVE (NEGATIVE); LEUKOCYTE ESTERASE ,URINE TRACE (NEGATIVE); NITRITE, URINE NEGATIVE (NEGATIVE); PROTEIN,URINE 1+ mg/dl (NEGATIVE); UGLUCOSE NEGATIVE (NEGATIVE); UROBILINOGEN,URINE 0.2 EU/dL (0.2)
--- NOTE | 2017-08-28 19:57 | NUR ---
TILE APPLICATOR INITIAL NOTES RECEIVED PATIENT ASLEEP, AROUSABLE. ALERT AND ORIENTED TO SELF. DENIES PAIN OR DISCOMFORT. NO RESPIRATORY DISTRESS NOTED, ON 2LPMO2 VIA NC. ON TELE MONITOR SR 60. WITH F/C PATENT AND INTACT, DRAINING BY GRAVITY. WITH LIJ PATENT AND INTACT LEVO AT 5MCG/MIN. SKIN WARM AND DRY TO TOUCH. HOB ELEVATED. SIDE RAILS UP AND LOCKED. BED KEPT AT LOWEST POSITION. WILL CONTINUE TO MONITOR.
[2017-08-28] MEDS ORDERED: NOREPINEPHRINE 16 MG in IV D5W 500 ML IV PRN (20:00)
[2017-08-28 20:18] LABS: BACTERIA,URINE None seen /HPF (None Seen); RBC,URINE TOO NUMEROUS TO COUN /HPF (0-2); SQUAMOUS EPITHELIAL CELL,UR Moderate /HPF (None Seen); WBC,URINE 0-2 /HPF (0-3)
[2017-08-28 20:19] LABS: URINE AMORPHOUS URATE Many /HPF (None Seen)
[2017-08-28] MEDS ORDERED: FEE PK DOSING 1 MIN EA MC ONE (20:28)
[2017-08-28] MEDS ORDERED: ALPRAZOLAM 0.5 MG TABLET PO PRN (20:30)
[2017-08-28] MEDS ORDERED: DEXTROSE 50%-WATER 50 ML DISP.SYRIN IV PRN (20:30)
[2017-08-28] MEDS ORDERED: INSULIN REGULAR, HUMAN 100 UNIT/ML 3 ML VIAL SQ PRN (20:30)
--- NOTE | 2017-08-28 20:30 | NUR ---
DRY CAN TENDER NOTE DAUGHTER AND AT BEDSIDE, PER PATIENT CAME FROM [facility] AND THEY DO NOT WANT TO GO BACK TO THAT FACILITY. PER SHE WOULD LIKE HER TO BE FULL CODE. WILL CONTINUE TO MONITOR.
--- NOTE | 2017-08-28 20:50 | NUR ---
HIDE BUFFER NOTE SEEN AND EXAMINED BY ILEANA DRAKE, SPOKE WITH FAMILY.
[2017-08-28] MEDS ORDERED: CARVEDILOL 12.5 MG TABLET PO SCH (21:00)
[2017-08-28] MEDS: PIPERACILLIN /TAZOBACTAM 2.25 G in IV NS 0.9% 50 ML IV SCH (21:23)
[2017-08-28] MEDS: INSULIN GLARGINE, 100 UNIT/ML CARTRIDGE SQ SCH (21:24)
[2017-08-28] MEDS: BLOOD SUGAR DIAGNOSTIC 1 EACH STRIP VI SCH (21:27)
[2017-08-28] MEDS: *INSULIN REGULAR(HUMULIN R)HUM 100 UNIT/ML VIAL SQ PRN (21:27)
[2017-08-28] MEDS ORDERED: LATANOPROST EYE DROP 0.005% 2.5 ML BOTTLE ONE (21:59)
[2017-08-28] MEDS: LATANOPROST EYE DROP 0.005% 2.5 ML BOTTLE EACHEYE SCH (22:08)
--- NOTE | 2017-08-28 22:30 | NUR ---
RESOURCE TEACHER NOTE NOTED PATIENT TAKING OF LEADS AND OXYGEN, REORIENTED PATIENT, EXPLAINED THE NEED FOR MONITORING AND OXYGEN. PATIENT VERBALIZED UNDERSTANDING. WILL CONTINUE TO MONITOR.
--- NOTE | 2017-08-28 23:00 | NUR ---
RECEIVABLE MANAGER NOTE PATIENT NOTED TAKING OFF LEADS, PULLING ON CATHETER, TAKING OFF OXYGEN, ATTEMPTED TO REORIENT PATIENT, PATIENT STATED HE NEEDS TO GET TO WORK. REORIENTED PATIENT AGAIN. WILL CONTINUE TO MONITOR.
[2017-08-29] VITALS (80 sets, daily range): BP systolic 80–150; BP diastolic 22–82
--- NOTE | 2017-08-29 00:20 | NUR ---
RAMPMAN NOTE PATIENT NOTED WITH MINIMAL HEMATURIA, STILL PULLING LEADS, OXYGEN, SCHWARTZ AND TUBES DESPITE SEVERAL EXPLANATIONS AND REORIENTATION. CLOSELY MONITORING PATIENT. INFORMED MD, RECEIVED ORDER FOR BILATERAL SOFT WRIST RESTRAINTS. WILL CONTINUE TO MONITOR.
--- NOTE | 2017-08-29 01:25 | NUR ---
CONTINUOUS IMPROVEMENT ENGINEER NOTE PATIENT C/O BACK PAIN, TURNED AND REPOSITIONED STILL WITH PAIN. PATIENT CURRENTLY NPO AT THIS TIME. INFORMED DR. POWERS WITH NEW ORDERS FOR MORPHINE 2MG IV Q4 PRN. NOTED. WILL CONTINUE TO MONITOR.
[2017-08-29] MEDS ORDERED: MORPHINE SULFATE INJ 2 MG/ML DISP.SYRIN IV PRN (01:30)
[2017-08-29] MEDS: MORPHINE SULFATE INJ 4 MG/ML DISP.SYRIN IV PRN (01:49)
[2017-08-29 04:49] LABS: HEMATOCRIT 21 % (39-51); LYMPHOCYTES # (AUTO) 0.1 /CMM (0.8-4.8); LYMPHOCYTES % (AUTO) 2.4 % (20.0-44.0); MEAN CORPUSCULAR HGB CONC 34 g/dl (31.0-36.0); MEAN CORPUSCULAR VOLUME 91 fL (80-96); MONOCYTES # (AUTO) 0.2 /CMM (0.1-1.30); MONOCYTES % (AUTO) 3.4 % (2.0-12.0); NEUTROPHILS % (AUTO) 94.2 % (43.0-81.0); PLATELET COUNT (AUTO) 102 /CMM (150-450); RDW COEFFICIENT OF VARIATION 15.6 (11.5-15.0); RED BLOOD CELL COUNT(AUTO) 2.26 MIL/uL (4.5-6.0); WHITE BLOOD COUNT (AUTO) 5.3 K/uL (4.3-11.0)
[2017-08-29 05:07] LABS: CHOLESTEROL 144 mg/dL (<200); HDL CHOLESTEROL 65 mg/dL (40-60); LDL 67 mg/dL (0-99); TRIGLYCERIDES 136 mg/dL (30-150)
[2017-08-29 05:10] LABS: ALANINE AMINOTRANSFERASE 24 U/L (12-78); ALBUMIN 1.7 g/dL (3.4-5.0); ALKALINE PHOSPHATASE 321 U/L (46-116); ASPARTATE AMINOTRANSFERASE 34 U/L (15-37); BILIRUBIN,TOTAL 0.8 mg/dL (0.2-1.0); CALCIUM, SERUM 7.6 mg/dL (8.5-10.1); CARBON DIOXIDE 24 mmol/L (21-32); CHLORIDE 100 mmol/L (98-107); CREATININE 4.9 mg/dL (0.6-1.3); GLUCOSE 226 mg/dL (74-106); MAGNESIUM 2.4 mg/dL (1.8-2.4); PHOSPHORUS 7.6 mg/dL (2.5-4.9); POTASSIUM 5.4 mmol/L (3.5-5.1); SODIUM SERUM 133 mmol/L (136-145); TOTAL PROTEIN, SERUM 4.8 g/dL (6.4-8.2)
[2017-08-29 05:13] LABS: UREA NITROGEN, BLOOD 105 mg/dL (7-18)
[2017-08-29] MEDS: PIPERACILLIN /TAZOBACTAM 2.25 G in IV NS 0.9% 50 ML IV SCH ×3 (05:47→20:18)
[2017-08-29] MEDS ORDERED: VANCOMYCIN 500 MG in IV D5W 100 ML IV PRN (07:00)
--- NOTE | 2017-08-29 07:02 | NUR ---
BUSINESS MANAGEMENT SPECIALIST NOTE SEEN AND EXAMINED BY DR. TORRES
[2017-08-29] MEDS: *INSULIN REGULAR(HUMULIN R)HUM 100 UNIT/ML VIAL SQ PRN ×3 (07:53→22:17)
[2017-08-29] MEDS: BLOOD SUGAR DIAGNOSTIC 1 EACH STRIP VI SCH ×4 (07:57→21:33)
--- NOTE | 2017-08-29 07:58 | NUR ---
ORTHOPHOTO TECH/DRAFTSMAN CLOSING NOTES ALL SAFETY MEASURES MET, AND REORIENTED FREQUENTLY. NO RESPIRATORY DISTRESS NOTED. BP MONITORED CLOSELY. BILATERAL SOFT WRIST RESTRAINTS IN PLACE, CIRCULATION CHECKED. F/C PATENT AND INTACT, DRAINING BY GRAVITY. KEPT CLEAN AND DRY. TURNED AND REPOSITIONED Q2 AND PRN. HOB ELEVATED. IVF RUNNING. SIDE RAILS UP AND LOCKED. BED KEPT AT LOWEST POSITION. CONTINUITY OF CARE ENDORSED TO AM NURSE.
[2017-08-29] MEDS: AMIODARONE HCL 200 MG TABLET PO SCH (09:00)
[2017-08-29] MEDS ORDERED: VALSARTAN 80 MG TABLET PO SCH (09:00)
[2017-08-29] MEDS ORDERED: AMIODARONE HCL 200 MG TABLET PO SCH (09:00)
[2017-08-29] MEDS ORDERED: ATORVASTATIN 40 MG TABLET PO SCH (09:00)
[2017-08-29] MEDS ORDERED: predniSONE 5 MG TABLET PO SCH (09:00)
[2017-08-29] MEDS: PANTOPRAZOLE 40 MG VIAL IV SCH (09:32)
[2017-08-29] MEDS: DILTIAZEM HCL CD 240 MG PO SCH (09:32)
[2017-08-29] MEDS: CARVEDILOL 12.5 MG TABLET PO SCH ×2 (09:33→20:13)
--- NOTE | 2017-08-29 10:48 | NUR ---
WOUND CARE CONSULT: PT PRESENTS WITH 4+ PITTING EDEMA WHICH IS GENERALIZED, ESPECIALLY TO ARMS AND TRUNK OF BODY, BILATERAL LATERAL ANKLE DRY ABRASIONS, RT BUTTOCK DEEP TISSUE INJURY WHICH IS INTACT, ALL PRESENT ON ADMISSION. RECOMMEND FIRST STEP MATTRESS. ALL SKIN PROTECTION RECOMMENDATIONS DISCUSSED WITH NURSING STAFF. WILL SEE PRN. [place] IN AGREEMENT WITH PLAN OF CARE. Addendum: 08/29/17 at 1050 by ARSLAN PATRICIO WNDNU Amended: Links added.
[2017-08-29] MEDS: NOREPINEPHRINE 16 MG in IV D5W 500 ML IV PRN (13:22)
[2017-08-29] MEDS: ACETAMINOPHEN 325 MG TABLET PO PRN (17:06)
[2017-08-29] MEDS ORDERED: VANCOMYCIN 1 GM in IV D5W 250 ML IV ONE (18:00)
--- NOTE | 2017-08-29 19:15 | NUR ---
DR RODRIGUEZ AT BEDSIDE TO EXAMINE PT, ORDERED CONTINUOUS BLADDER IRRIGATION AND ORDERED 1 UNIT PRBC TO BE GIVEN WITH HD
[2017-08-29] MEDS: KETOCONAZOLE 200 MG PO SCH (19:44)
--- NOTE | 2017-08-29 20:00 | NUR ---
LEAD DIE MOLDER - NOTES - RECEIVED PATIENT ASLEEP, AROUSABLE. ALERT AND ORIENTED TO SELF. DENIES PAIN OR DISCOMFORT. NO RESPIRATORY DISTRESS NOTED, ON 2L NC 02. ON TELE MONITOR SR 60S. WITH F/C DRAINING BLOODY URINE BY GRAVITY. WITH LIJ PATENT AND INTACT LEVO AT 16 MCG/MIN. SKIN WARM AND DRY TO TOUCH. HOB ELEVATED. SIDE RAILS UP AND LOCKED. BED KEPT AT LOWEST POSITION. WILL CONTINUE TO MONITOR.
[2017-08-29] MEDS ORDERED: LIDOCAINE 2% JEL UROJET 10 ML MM ONE (21:00)
[2017-08-29] MEDS: LATANOPROST EYE DROP 0.005% 2.5 ML BOTTLE EACHEYE SCH (21:34)
--- NOTE | 2017-08-29 22:00 | NUR ---
CONTINUOUS BLADDER IRRIGATION CONNECTED @ 100 ML/HR, BLOODY URINE CLEARING UP, WILL CONTINUE TO MONITOR
[2017-08-29] MEDS: INSULIN GLARGINE, 100 UNIT/ML CARTRIDGE SQ SCH (22:17)
[2017-08-29] MEDS: HYDROCODONE/APAP 5/325MG 1 EACH TABLET PO PRN (23:20)
[2017-08-30] VITALS (81 sets, daily range): BP systolic 59–172; BP diastolic 24–104
[2017-08-30 04:27] LABS: BASOPHILS % (AUTO) 0.3 % (0.0-2.0); EOSINOPHILS % (AUTO) 0.7 % (0.0-6.0); HEMATOCRIT 21 % (39-51); LYMPHOCYTES # (AUTO) 0.2 /CMM (0.8-4.8); LYMPHOCYTES % (AUTO) 4.4 % (20.0-44.0); MEAN CORPUSCULAR HGB CONC 34 g/dl (31.0-36.0); MEAN CORPUSCULAR VOLUME 90 fL (80-96); MONOCYTES # (AUTO) 0.2 /CMM (0.1-1.30); MONOCYTES % (AUTO) 3.7 % (2.0-12.0); NEUTROPHILS # (AUTO) 4.2 /CMM (1.8-8.9); NEUTROPHILS % (AUTO) 90.9 % (43.0-81.0); PLATELET COUNT (AUTO) 101 /CMM (150-450); RDW COEFFICIENT OF VARIATION 16.4 (11.5-15.0); RED BLOOD CELL COUNT(AUTO) 2.28 MIL/uL (4.5-6.0); WHITE BLOOD COUNT (AUTO) 4.7 K/uL (4.3-11.0)
[2017-08-30] MEDS: PIPERACILLIN /TAZOBACTAM 2.25 G in IV NS 0.9% 50 ML IV SCH ×3 (04:28→21:22)
[2017-08-30 04:48] LABS: CALCIUM, SERUM 7.5 mg/dL (8.5-10.1); CARBON DIOXIDE 25 mmol/L (21-32); CHLORIDE 98 mmol/L (98-107); CREATININE 4.5 mg/dL (0.6-1.3); GLUCOSE 148 mg/dL (74-106); MAGNESIUM 2.1 mg/dL (1.8-2.4); PHOSPHORUS 6.3 mg/dL (2.5-4.9); POTASSIUM 4.6 mmol/L (3.5-5.1); SODIUM SERUM 132 mmol/L (136-145); UREA NITROGEN, BLOOD 74 mg/dL (7-18)
[2017-08-30] MEDS ORDERED: VANCOMYCIN 500 MG in IV D5W 100 ML IV PRN (06:00)
--- NOTE | 2017-08-30 06:30 | NUR ---
PT CONTINUING TO PULL ON EKG CABLE, REACHING FOR CENTRAL LINE AND HD LINE, PT PULLING GOWN AND SHEETS AND WILL NOT STOP, EVEN THOUGH HE SAYS THAT HE WONT PULL. RESTRAINTS IN PLACE FOR SAFETY
[2017-08-30] MEDS: BLOOD SUGAR DIAGNOSTIC 1 EACH STRIP VI SCH ×4 (07:38→21:35)
--- NOTE | 2017-08-30 07:54 | NUR ---
RN NOTES RECEIVED PT A&0X1-2 FORGETFUL, CONFUSED. ON 2L NC SATING WELL NO SOB OR DISTRESS. SR ON THE TELE JOSHUA. L SUBCLAVIAN CENTRAL LINE INTACT WITH LEVO RUNNING AT 4MCG/HR. SCHWARTZ DRAINING TO GRAVITY WITH BLADDER IRRIGATION, URINE RED TINGED. BED LOCKED AND IN LOWEST POSITION, CALL LIGHT WITHIN REACH, SIDE RAILS UPX3, WILL CONT TO JOSHUA.
[2017-08-30] MEDS: HYDROCORTISONE SOD SUCCINATE 100 MG/2 ML VIAL IV SCH ×3 (08:45→17:16)
[2017-08-30] MEDS: AMIODARONE HCL 200 MG TABLET PO SCH (08:45)
[2017-08-30] MEDS: PANTOPRAZOLE 40 MG VIAL IV SCH (08:45)
[2017-08-30] MEDS: DILTIAZEM HCL CD 240 MG PO SCH (08:45)
[2017-08-30] MEDS: KETOCONAZOLE 200 MG PO SCH ×2 (08:45→17:16)
[2017-08-30] MEDS: CARVEDILOL 12.5 MG TABLET PO SCH ×2 (08:47→21:24)
[2017-08-30] MEDS: predniSONE 5 MG TABLET PO SCH ×2 (08:47→17:15)
[2017-08-30] MEDS: NOREPINEPHRINE 16 MG in IV D5W 500 ML IV PRN (11:49)
[2017-08-30] MEDS: HYDROCODONE/APAP 5/325MG 1 EACH TABLET PO PRN (13:14)
[2017-08-30] MEDS: LORAZEPAM 0.5 MG TABLET PO PRN ×2 (16:09→21:23)
--- NOTE | 2017-08-30 16:32 | NUR ---
RN NOTES ILEANA JUNIOR MADE AWARE THAT THERE IS AN ORDER FROM DR RODRIGUEZ FOR 1 UNIT OF PRBC WITH HD. PT WILL NOT BE HAVING HD TODAY PER DR CHENG. ILEANA JUNIOR OK TO TRANSFUSE 1 UNIT TOMORROW WITH HD.
--- NOTE | 2017-08-30 18:25 | NUR ---
RN NOTES PT REMAINED IN STABLE CONDITION THROUGHOUT THE SHIFT, ALL NEEDS MET. NO SIGNIFICANT CHANGES NOTED. AT BEDSIDE. WILL ENDORSE TO ONCOMING SHIFT.
--- NOTE | 2017-08-30 20:05 | NUR ---
RN NOTES RECEIVED PATIENT SLEEPING IN BED WITH AT BEDSIDE. NO RESPIRATORY DISTRESS OR SHORTNESS OF BREATH. BREATHING EVEN AND UNLABORED. O2 AT 2LPM VIA NASAL CANNULA WELL TOLERATED. NO PHYSICAL MANIFESTATION OF PAIN OR DISCOMFORT. SCHWARTZ CATHETER IN PLACE DRAINING URINE WITH BLOOD, IRRIGATION IN PLACE. ON LEVOPHED, CONTINUE TO MONITOR AND ADJUST MEDICATION. KEPT CLEAN AND DRY.
[2017-08-30] MEDS: LATANOPROST EYE DROP 0.005% 2.5 ML BOTTLE EACHEYE SCH (21:28)
[2017-08-30] MEDS: INSULIN GLARGINE, 100 UNIT/ML CARTRIDGE SQ SCH (21:35)
[2017-08-30] MEDS: *INSULIN REGULAR(HUMULIN R)HUM 100 UNIT/ML VIAL SQ PRN (21:37)
[2017-08-31] VITALS (75 sets, daily range): BP systolic 73–156; BP diastolic 33–127
[2017-08-31] MEDS: PIPERACILLIN /TAZOBACTAM 2.25 G in IV NS 0.9% 50 ML IV SCH ×3 (04:40→20:51)
--- NOTE | 2017-08-31 07:05 | NUR ---
RN INITIAL NOTES RECEIVED PT AWAKE, A/OX1-2. ON 02 AT 2LPM VIA NC. NO RESPIRATORY DISTRESS NOTED. NO SOB NOTED. NO SIGNS OF PAIN NOTED. LIJ TLC IN PLACE. ON LEVO AT 16MCG/MIN. RIGHT SUBCLAVIAN HD CATH IN PLACE. HD ONGOING. FOR BLOOD TRANSFUSION 1 UNIT FOR LOW H/H. FC IN PLACE. HEMATURIA NOTED. ON CONTINUOUS BLADDER IRRIGATION. BLE ELEVATED. WILL CONTIN UE TO MONITOR.
--- NOTE | 2017-08-31 07:39 | NUR ---
RN NOTES 1 UNIT OF PRBC TRANSFUSING WITH HD. VITAL SIGNS STABLE. WILL MONITOR.
[2017-08-31 07:49] LABS: EOSINOPHILS % (AUTO) 1.3 % (0.0-6.0); HEMATOCRIT 22 % (39-51); HEMOGLOBIN 7.4 g/dL (13.5-17.5); LYMPHOCYTES # (AUTO) 0.2 /CMM (0.8-4.8); MEAN CORPUSCULAR HGB CONC 34 g/dl (31.0-36.0); MEAN CORPUSCULAR VOLUME 90 fL (80-96); MONOCYTES # (AUTO) 0.1 /CMM (0.1-1.30); MONOCYTES % (AUTO) 2.7 % (2.0-12.0); NEUTROPHILS # (AUTO) 3.5 /CMM (1.8-8.9); PLATELET COUNT (AUTO) 85 /CMM (150-450); RDW COEFFICIENT OF VARIATION 16.6 (11.5-15.0); RED BLOOD CELL COUNT(AUTO) 2.39 MIL/uL (4.5-6.0); WHITE BLOOD COUNT (AUTO) 3.8 K/uL (4.3-11.0)
[2017-08-31 08:02] LABS: CALCIUM, SERUM 6.9 mg/dL (8.5-10.1); CARBON DIOXIDE 31 mmol/L (21-32); CHLORIDE 100 mmol/L (98-107); CREATININE 2.8 mg/dL (0.6-1.3); GLUCOSE 76 mg/dL (74-106); SODIUM SERUM 138 mmol/L (136-145); UREA NITROGEN, BLOOD 47 mg/dL (7-18); VANCOMYCIN,RANDOM 12 ug/ml (18-26)
[2017-08-31] MEDS: NOREPINEPHRINE 16 MG in IV NS 0.9% 500 ML IV PRN ×2 (08:16→16:16)
[2017-08-31 08:30] LABS: LYMPHOCYTES % (MANUAL) 11 % (16-48); MONOCYTES % (MANUAL) 4 % (0-11.0); NEUTROPHILS % (MANUAL) 85 (42-76)
--- NOTE | 2017-08-31 08:45 | NUR ---
RN NOTES HD DONE. 1.5L REMOVED. TOLERATED WELL. SP 1 UNIT OF PRBC TRANSFUSED WITH HD. NO BT REACTION NOTED. VS STABLE. WILL MONITOR.
[2017-08-31] MEDS: PANTOPRAZOLE 40 MG VIAL IV SCH (09:01)
[2017-08-31] MEDS: HYDROCORTISONE SOD SUCCINATE 100 MG/2 ML VIAL IV SCH ×3 (09:01→16:15)
[2017-08-31] MEDS: BLOOD SUGAR DIAGNOSTIC 1 EACH STRIP VI SCH ×4 (09:01→21:43)
[2017-08-31] MEDS: predniSONE 5 MG TABLET PO SCH ×2 (09:01→16:18)
[2017-08-31] MEDS: KETOCONAZOLE 200 MG PO SCH ×2 (09:01→16:15)
[2017-08-31] MEDS: AMIODARONE HCL 200 MG TABLET PO SCH (09:02)
[2017-08-31] MEDS: DILTIAZEM HCL CD 240 MG PO SCH (09:02)
[2017-08-31] MEDS: CARVEDILOL 12.5 MG TABLET PO SCH (09:02)
[2017-08-31] MEDS ORDERED: VANCOMYCIN 1 GM in IV NS 0.9% 250 ML IV ONE (10:00)
[2017-08-31] MEDS: FLUDROCORTISONE 0.1 MG TABLET PO SCH ×2 (10:12→16:15)
[2017-08-31] MEDS: HYDROCODONE/APAP 5/325MG 1 EACH TABLET PO PRN ×2 (13:04→17:19)
[2017-08-31] MEDS: INSULIN REGULAR, HUMAN 100 UNIT/ML 3 ML VIAL SQ PRN (17:45)
--- NOTE | 2017-08-31 18:32 | NUR ---
RN CLOSING NOTES NO SIGNIFICANT CHANGE NOTED. NO RESPIRATORY DISTRESS NOTED. NO SOB NOTED. PAIN WELL MANAGED. KEPT COMFORTABLE. REMAINS ON LEVO AT 4MCG/MIN, BP CLOSELY MONITORED. REPOSITIONED Q2. WILL ENDORSE FOR CONTINUITY OF CARE.
--- NOTE | 2017-08-31 19:00 | NUR ---
EVENTS MANAGER: ALL CHARTING/DOCUMENTATION STARTING 1899 WAS PERFORMED BY AWAIS CALVO, PRIMARY NURSE RN. PREVIOUS DAY SHIFT RN BALDO WAS NOT LOGGED OUT AND WAS ACCIDENTALLY USED.
--- NOTE | 2017-08-31 19:35 | NUR ---
BRASS MOLDER HELPER: RECEIVED PT ALERT AND AWAKE, ABLE TO TALK CLEARLY, FOLLOW COMMANDS WT CONFUSION. ON 2L 02 VIA NC WT NO ACUTE DISTRESS. NO C/O PAIN . SR ON REGIONAL SALES CONSULTANT. LIJ TLC INFUSING LEVOPHED AT 4MCG/MIN, NS IRRIGATION AT 100ML/HR FOR HEMATURIA NOTED ON SCHWARTZ CATHETER. RT. SUBCLAVIAN HD CATH. INTACT. BILAT. SOFT WRIST RESTRAINTS IN PLACE FOR EPISODES OF TRYING TO PULL TUBINGS. SKIN AND CIRCULATION WNL. HOB AT 35 DEGREES. SAFETY PRECAUTION NOTED.
[2017-08-31 20:14] LABS: APPEARANCE,URINE TURBID (CLEAR); BILIRUBIN,URINE NEGATIVE (NEGATIVE); BLOOD, URINE 3+ Ery/uL (NEGATIVE); COLOR,URINE RED (YELLOW); KETONES,URINE TRACE (NEGATIVE); LEUKOCYTE ESTERASE ,URINE 2+ (NEGATIVE); NITRITE, URINE POSITIVE (NEGATIVE); PH,URINE 6.5 (5.0-8.0); PROTEIN,URINE 3+ mg/dl (NEGATIVE); UGLUCOSE NEGATIVE (NEGATIVE)
[2017-08-31 20:37] LABS: BACTERIA,URINE None seen /HPF (None Seen); RBC,URINE TOO NUMEROUS TO COUN /HPF (0-2); SQUAMOUS EPITHELIAL CELL,UR Few /HPF (None Seen)
[2017-08-31] MEDS: MORPHINE SULFATE SR 15 MG TABLET.SA PO SCH (20:59)
[2017-08-31] MEDS: LATANOPROST EYE DROP 0.005% 2.5 ML BOTTLE EACHEYE SCH (21:01)
[2017-08-31] MEDS: *INSULIN REGULAR(HUMULIN R)HUM 100 UNIT/ML VIAL SQ PRN (21:48)
[2017-08-31] MEDS: INSULIN GLARGINE, 100 UNIT/ML CARTRIDGE SQ SCH (21:48)
[2017-08-31] MEDS: LORAZEPAM 0.5 MG TABLET PO PRN (23:27)
[2017-09-01] VITALS (94 sets, daily range): BP systolic 68–139; BP diastolic 28–124
--- NOTE | 2017-09-01 00:30 | NUR ---
RELATIONS COORDINATOR: REASSESSED AFTER GIVEN ATIVAN FOR RESTLESSNESS AND TRYING TO PULL TUBINGS WT GOOD EFFECT. PT IS CALM AT THIS TIME. WILL CONTINUE TO MONITOR.
[2017-09-01] MEDS: PIPERACILLIN /TAZOBACTAM 2.25 G in IV NS 0.9% 50 ML IV SCH ×3 (04:53→21:43)
[2017-09-01] MEDS: IV NS 0.9% 250 ML IV PRN (04:56)
--- NOTE | 2017-09-01 06:30 | NUR ---
MESMERIST: NOTED SB WT HR IN THE 50s WHEN ASLEEP. NOW ON LEVOPHED AT 12MCG/MIN. STILL ON 2L 02 VIA NC WT NO ACUTE DISTRESS. NO EVIDENCE OF DISCOMFORT. SAFETY PRECAUTION NOTED AT ALL TIMES.
--- NOTE | 2017-09-01 07:40 | NUR ---
ICU/RN: INITIAL NOTES,AM RECEIVED REPORT FROM NIGHT NURSE. RECEIVED PT ALERT, FOLLOWS COMMANDS, CONFUSED. PT ON NASAL CANULA, NO ACUTE RESPIRATORY DISTRESS NOTED. PT ON TELE, SINUS. LEFT IG TLC PATENT AND INTACT, NO S/S OF INFECTION OR INFILTRATION NOTED. LEVO INFUSING FOR BP SUPPORT. BILATERAL WRIST RESTRAINTS ON FOR SAFETY, ASSESSED PER PROTOCOL. CONTINUOUS BLADDER IRRIGATION. PT TURNED AND REPOSITIONED. ALL NEEDS WILL BE ATTENDED TO, SAFETY MEASURE TAKEN, BED IN LOW POSITION, SIDE RAILS UP, CALL LIGHT WITHIN REACH.
[2017-09-01] MEDS: BLOOD SUGAR DIAGNOSTIC 1 EACH STRIP VI SCH ×4 (08:05→21:52)
[2017-09-01] MEDS: KETOCONAZOLE 200 MG PO SCH ×2 (08:06→17:24)
[2017-09-01] MEDS: PANTOPRAZOLE 40 MG VIAL IV SCH (08:06)
[2017-09-01] MEDS: INSULIN REGULAR, HUMAN 100 UNIT/ML 3 ML VIAL SQ PRN ×3 (08:06→17:22)
[2017-09-01] MEDS: HYDROCORTISONE SOD SUCCINATE 100 MG/2 ML VIAL IV SCH ×3 (08:06→17:19)
[2017-09-01] MEDS: MORPHINE SULFATE SR 15 MG TABLET.SA PO SCH ×2 (08:08→21:44)
[2017-09-01] MEDS: FLUDROCORTISONE 0.1 MG TABLET PO SCH ×2 (08:08→17:19)
[2017-09-01] MEDS: AMIODARONE HCL 200 MG TABLET PO SCH (08:08)
[2017-09-01] MEDS: HYDROCODONE/APAP 10/325MG 1 EA TABLET PO PRN ×2 (08:09→09:00)
[2017-09-01] MEDS: predniSONE 5 MG TABLET PO SCH ×2 (08:59→17:19)
[2017-09-01 11:33] LABS: EOSINOPHILS % (AUTO) 0.1 % (0.0-6.0); LYMPHOCYTES # (AUTO) 0.3 /CMM (0.8-4.8); LYMPHOCYTES % (AUTO) 5.5 % (20.0-44.0); MEAN CORPUSCULAR HGB CONC 34 g/dl (31.0-36.0); MEAN CORPUSCULAR VOLUME 89 fL (80-96); MONOCYTES # (AUTO) 0.1 /CMM (0.1-1.30); MONOCYTES % (AUTO) 2.3 % (2.0-12.0); NEUTROPHILS # (AUTO) 4.9 /CMM (1.8-8.9); NEUTROPHILS % (AUTO) 92.1 % (43.0-81.0); PLATELET COUNT (AUTO) 70 /CMM (150-450); RDW COEFFICIENT OF VARIATION 17.2 (11.5-15.0); RED BLOOD CELL COUNT(AUTO) 2.22 MIL/uL (4.5-6.0); WHITE BLOOD COUNT (AUTO) 5.3 K/uL (4.3-11.0)
[2017-09-01 11:43] LABS: CALCIUM, SERUM 7.6 mg/dL (8.5-10.1); CARBON DIOXIDE 28 mmol/L (21-32); CHLORIDE 96 mmol/L (98-107); CREATININE 5.1 mg/dL (0.6-1.3); GLUCOSE 141 mg/dL (74-106); POTASSIUM 4.2 mmol/L (3.5-5.1); SODIUM SERUM 131 mmol/L (136-145); UREA NITROGEN, BLOOD 68 mg/dL (7-18)
[2017-09-01 11:44] LABS: HEMATOCRIT 20 % (39-51); HEMOGLOBIN 6.7 g/dL (13.5-17.5)
--- NOTE | 2017-09-01 11:45 | NUR ---
ICU/RN: CRITICAL LAB: H/H 6.7/19.9, SANDI FRANKLIN CALLED, NEW ORDERS RECEIVED, WILL FOLLOW THROUGH
[2017-09-01 12:34] LABS: LYMPHOCYTES % (MANUAL) 1 % (16-48); MONOCYTES % (MANUAL) 1 % (0-11.0); NEUTROPHILS % (MANUAL) 98 (42-76)
[2017-09-01] MEDS: MORPHINE SULFATE INJ 4 MG/ML DISP.SYRIN IV PRN (14:57)
--- NOTE | 2017-09-01 17:15 | NUR ---
ICU/RN: BLOOD TRANSFUSION STARTED, NO S/S OF ADVERSE REACTION NOTED. WILL CONTINUE TO MONITOR AND ASSESS
[2017-09-01] MEDS: NOREPINEPHRINE 16 MG in IV NS 0.9% 500 ML IV PRN (17:16)
[2017-09-01] MEDS: LORAZEPAM 0.5 MG TABLET PO PRN (17:26)
--- NOTE | 2017-09-01 19:15 | NUR ---
FURNITURE DECALS INSPECTOR: RECEIVED PT ASLEEP, EASILY AROUSED WHEN TOUCHED. INCREASED 02 AT 5L 02 VIA NC DUE TO 90% 02 SAT. SR-SB WHEN ASLEEP. AFEBRILE. STILL ON LEVOPHED AT 14MCG/MIN FOR BP SUPPORT. NO S/S OF LIJ TLC COMPLICATIONS. STILL ON CONTINUOUS BLADDER IRRIGATION AT 100ML/HR D/T HEMATURIA. ON MONITORING FOR AGITATION/RESTLESSNESS WT NONE NOTED AT THIS TIME. BILAT. SOFT WRIST RESTRAINTS IN PLACE FOR EPISODES OF TRYING TO PULL TUBINGS. SKIN AND CIRCULATION WNL. HOB AT 45 DEGREES. SAFETY PRECAUTION NOTED. WILL CONTINUE TO MONITOR.
--- NOTE | 2017-09-01 19:28 | NUR ---
ICU/RN ENDING NOTES,AM REPORT ENDORSED TO NIGHT NURSE FOR CONTINUATION OF CARE. ALL NEEDS ATTENDED TO, SAFETY MEASURES TAKEN, BED IN LOW POSITION. PT AGITATED, AT BEDSIDE. BILATERAL WRIST RESTRAINTS ON , ASSESSED PER PROTOCOL. BLOOD TRANSFUSION ENDED, TOLERATED WELL. LEVO FOR BP SUPPORT. CONTINUOUS BLADDER IRRIGATION GOING. WILL ENDORSE.
[2017-09-01] MEDS: LATANOPROST EYE DROP 0.005% 2.5 ML BOTTLE EACHEYE SCH (21:47)
[2017-09-01] MEDS: INSULIN GLARGINE, 100 UNIT/ML CARTRIDGE SQ SCH (21:54)
[2017-09-01] MEDS: *INSULIN REGULAR(HUMULIN R)HUM 100 UNIT/ML VIAL SQ PRN (21:56)
[2017-09-01 23:00] LABS: ABG BASE EXCESS -3.5 mmol/L; ABG PCO2 37.1 mmHg (35.0-45.0); ABG PH 7.376 (7.350-7.450); ABG PO2 71.5 mmHg (75.0-100.0); AaDO2 243.3 mmHg; COHb 0.2 % (0.5-1.5); MetHb 0.8 % (0.0-1.5); O2Hb 92.1 % (94.0-97.0); SITE, ABG Right Radial; VENT MODE, BG N/C
--- NOTE | 2017-09-01 23:20 | NUR ---
PETS SALESPERSON: NOTIFIED DR. ZAMARRIPA THAT PT IS STILL NOTED WT ANXIETY MANIFESTED BY AGITATION/SCREAMING/RESTLESSNESS. RELAYED ABG RESULT AND PT ON ATIVAN 0.5MG PO Q8H PRN. MD RODGERS ORDER TO DC ATIVAN PO AND CHANGE TO 0.5MG IV Q4H PRN. NOTED AND CARRIED OUT. WILL ADMINISTER ORDERED AND CONTINUE TO MONITOR FOR EFFECTIVITY. WILL INCREASE 02 TO 6L FROM 5LPM 02 VIA ID WT BUBBLE HUMIDIFIER.
[2017-09-01] MEDS ORDERED: LORAZEPAM INJ 2 MG/ML VIAL ONE (23:21)
[2017-09-01] MEDS: LORAZEPAM INJ 2 MG/ML VIAL IV PRN (23:35)
[2017-09-02] VITALS (60 sets, daily range): BP systolic 81–137; BP diastolic 25–88
--- NOTE | 2017-09-02 00:05 | NUR ---
TRAFFIC AND TRANSPORT PLANNER: REASSESSED AFTER GIVEN ATIVAN WT GOOD EFFECT. PT IS CALM AND QUIET. EYES CLOSED, EASILY AROUSED WHEN TOUCHED. WILL CONTINUE TO MONITOR.
[2017-09-02] MEDS: IV NS 0.9% 250 ML IV PRN (03:29)
[2017-09-02] MEDS: HYDROCODONE/APAP 10/325MG 1 EA TABLET PO PRN (03:41)
[2017-09-02] MEDS ORDERED: ALBUMIN 25% 100 ML IV ONE (04:57)
[2017-09-02] MEDS ORDERED: ALBUMIN 25% 25 GM in PREMIX 1 EA IV PRN (05:00)
[2017-09-02] MEDS: PIPERACILLIN /TAZOBACTAM 2.25 G in IV NS 0.9% 50 ML IV SCH ×3 (05:00→20:42)
[2017-09-02 05:01] LABS: BASOPHILS % (AUTO) 0.1 % (0.0-2.0); EOSINOPHILS % (AUTO) 0.1 % (0.0-6.0); HEMATOCRIT 26 % (39-51); HEMOGLOBIN 8.7 g/dL (13.5-17.5); LYMPHOCYTES # (AUTO) 0.3 /CMM (0.8-4.8); LYMPHOCYTES % (AUTO) 4.7 % (20.0-44.0); MEAN CORPUSCULAR HGB CONC 34 g/dl (31.0-36.0); MEAN CORPUSCULAR VOLUME 90 fL (80-96); MONOCYTES # (AUTO) 0.2 /CMM (0.1-1.30); MONOCYTES % (AUTO) 2.8 % (2.0-12.0); NEUTROPHILS # (AUTO) 5.3 /CMM (1.8-8.9); NEUTROPHILS % (AUTO) 92.3 % (43.0-81.0); PLATELET COUNT (AUTO) 79 /CMM (150-450); RED BLOOD CELL COUNT(AUTO) 2.86 MIL/uL (4.5-6.0); WHITE BLOOD COUNT (AUTO) 5.8 K/uL (4.3-11.0)
--- NOTE | 2017-09-02 05:05 | NUR ---
MOLDING TECHNICIAN: HEMODIALYSIS STARTED. PT SOUNDS CONGESTED. WILL CONTINUE TO MONITOR.
[2017-09-02 05:14] LABS: CALCIUM, SERUM 7.8 mg/dL (8.5-10.1); CARBON DIOXIDE 24 mmol/L (21-32); CHLORIDE 95 mmol/L (98-107); CREATININE 5.5 mg/dL (0.6-1.3); GLUCOSE 174 mg/dL (74-106); POTASSIUM 4.6 mmol/L (3.5-5.1); SODIUM SERUM 130 mmol/L (136-145); UREA NITROGEN, BLOOD 70 mg/dL (7-18)
[2017-09-02 05:30] LABS: BAND % (MANUAL) 3 % (0.0-5.0); LYMPHOCYTES % (MANUAL) 5 % (16-48); MONOCYTES % (MANUAL) 3 % (0-11.0); NEUTROPHILS % (MANUAL) 89 (42-76)
--- NOTE | 2017-09-02 06:50 | NUR ---
REFRACTIVE SURGEON: STILL ONGOING HEMODIALYSIS. NO ANGEL. STILL AT LEVOPHED AT 22MCG/MIN AND CONTINUOUS BLADDER IRRIGATION FOR HEMATURIA. ALL NEEDS MET.
--- NOTE | 2017-09-02 07:10 | NUR ---
RN INITIAL NOTES: Rec'd pt on/off sleeping on bed, not in any distress, easily arousable, A/O x 1-2 w/ confusion. Pt shouts for help but when asked what he needs, he verbalized, "I don't need anything." On NC at 6lpm, sating at 94%, noted crackles upon auscultation bilateral (L>R). On telemonitor, SR/SB. Has R subclavian HD cath intact, HD ongoing at this time. Has L IJ, TLC, no s/sx of infection/infiltration noted, on Levo Drip x 24 mcg/min infusing well. Has FC on CBI at 100 cc/hr, still noted w/ hematuria. Provided comfort & safety measures. Bd kept low & in locked pos. Call light placed w/in reach. Will continue to monitor & attend pt needs.
[2017-09-02] MEDS: NOREPINEPHRINE 16 MG in IV NS 0.9% 500 ML IV PRN ×2 (07:33→18:44)
--- NOTE | 2017-09-02 08:00 | NUR ---
RN NOTES: HD ended c/o Mikey RN, 2.7 L output. Pt tolerated well the procedure. Levo drip adjusted.
[2017-09-02] MEDS: BLOOD SUGAR DIAGNOSTIC 1 EACH STRIP VI SCH ×4 (08:07→21:50)
--- NOTE | 2017-09-02 08:30 | NUR ---
RN NOTES: Pt fed w/ strict aspiration precaution. Pt ate 50% of his food tray.
[2017-09-02] MEDS: HYDROCORTISONE SOD SUCCINATE 100 MG/2 ML VIAL IV SCH ×3 (08:33→16:09)
[2017-09-02] MEDS: predniSONE 5 MG TABLET PO SCH ×2 (08:33→16:10)
[2017-09-02] MEDS: FLUDROCORTISONE 0.1 MG TABLET PO SCH ×2 (08:33→16:10)
[2017-09-02] MEDS: PANTOPRAZOLE 40 MG VIAL IV SCH (08:33)
[2017-09-02] MEDS: MORPHINE SULFATE SR 15 MG TABLET.SA PO SCH ×2 (08:34→20:41)
[2017-09-02] MEDS: AMIODARONE HCL 200 MG TABLET PO SCH (08:34)
[2017-09-02] MEDS: KETOCONAZOLE 200 MG PO SCH ×2 (08:35→16:10)
[2017-09-02] MEDS: INSULIN REGULAR, HUMAN 100 UNIT/ML 3 ML VIAL SQ PRN ×3 (08:36→16:52)
--- NOTE | 2017-09-02 09:00 | NUR ---
RN NOTES: Pt seen & examined by ILEANA Monreal. Made him aware that pt still has crackles despite of the HD procedure today.
--- NOTE | 2017-09-02 12:00 | NUR ---
RN NOTES: Pt seen & examined by Dr. Og & made him aware that despite of HD pt still has some crackles. MD ordered to switch NC to simple face mask at 6lpm. ABG reviewed by him.
--- NOTE | 2017-09-02 13:02 | NUR ---
RN NOTES: Pt seen & examined by Dr. Ziegler and ordered for Seroquel 12.5 mg PO q6h PRN. If it makes him sedated, inform MD & will switch to other meds.
[2017-09-02] MEDS: QUETIAPINE FUMARATE 25 MG TABLET PO PRN (16:10)
--- NOTE | 2017-09-02 19:00 | NUR ---
RN CLOSING NOTES: Pt still had some episode of on/off agitation, shouts for help but denies any pain/discomfort. Pt tolerated NC at 6lpm, sating at 96%. RT did deep suctioning earlier, bilateral crackles was lessened. On telemonitor, still SR/SB. R subclavian HD cath kept C/D/I. HD tolerated this AM, 2.7L output. L IJ, TLC, kept patent & intact w/ no s/sx of infection/infiltration noted, still on Levo Drip x 22 mcg/min infusing well, titrated PRN. BP closely monitored. FC kept patent & intact, still on CBI at 100 cc/hr, still noted w/ hematuria. at bedside. Called pharmacy re: refill of Zytaga, she said to just keep it for now (placed inside the medroom) & send it tomorrow AM. Kept well rested. Needs attended. Bed kept low & in locked pos. Call light placed w/in reach. Endorsed to PM RN for ANGEL.
[2017-09-02] MEDS: LATANOPROST EYE DROP 0.005% 2.5 ML BOTTLE EACHEYE SCH (21:53)
[2017-09-02] MEDS: INSULIN GLARGINE, 100 UNIT/ML CARTRIDGE SQ SCH (21:54)
[2017-09-02] MEDS: *INSULIN REGULAR(HUMULIN R)HUM 100 UNIT/ML VIAL SQ PRN (21:55)
[2017-09-02] MEDS: LORAZEPAM INJ 2 MG/ML VIAL IV PRN (22:20)
[2017-09-03] VITALS (79 sets, daily range): BP systolic 84–145; BP diastolic 33–90
[2017-09-03 04:50] LABS: HEMATOCRIT 23 % (39-51); HEMOGLOBIN 7.6 g/dL (13.5-17.5); LYMPHOCYTES # (AUTO) 0.3 /CMM (0.8-4.8); LYMPHOCYTES % (AUTO) 4.9 % (20.0-44.0); MEAN CORPUSCULAR HGB CONC 33 g/dl (31.0-36.0); MEAN CORPUSCULAR VOLUME 90 fL (80-96); MONOCYTES # (AUTO) 0.1 /CMM (0.1-1.30); MONOCYTES % (AUTO) 2.1 % (2.0-12.0); NEUTROPHILS # (AUTO) 4.8 /CMM (1.8-8.9); PLATELET COUNT (AUTO) 73 /CMM (150-450); RDW COEFFICIENT OF VARIATION 16.4 (11.5-15.0); RED BLOOD CELL COUNT(AUTO) 2.53 MIL/uL (4.5-6.0); WHITE BLOOD COUNT (AUTO) 5.1 K/uL (4.3-11.0)
[2017-09-03 05:15] LABS: CARBON DIOXIDE 27 mmol/L (21-32); CHLORIDE 96 mmol/L (98-107); GLUCOSE 129 mg/dL (74-106); MAGNESIUM 2.3 mg/dL (1.8-2.4); PHOSPHORUS 7.7 mg/dL (2.5-4.9); POTASSIUM 4.5 mmol/L (3.5-5.1); SODIUM SERUM 133 mmol/L (136-145); UREA NITROGEN, BLOOD 55 mg/dL (7-18)
[2017-09-03 05:19] LABS: BAND % (MANUAL) 3 % (0.0-5.0); LYMPHOCYTES % (MANUAL) 6 % (16-48); MONOCYTES % (MANUAL) 2 % (0-11.0); NEUTROPHILS % (MANUAL) 89 (42-76)
[2017-09-03] MEDS: PIPERACILLIN /TAZOBACTAM 2.25 G in IV NS 0.9% 50 ML IV SCH ×3 (05:48→20:17)
--- NOTE | 2017-09-03 07:30 | NUR ---
RN note: (initial) Patient received asleep, easily arousal, oriented x1. able to verbalize. confused, anxious. On 6lpm O2 via NC. Breathing sounds: crackles. IV line & HD cath intact. dressing clean & dry. Continue with levo drip titration to keep SBP=>90. Continue with bladder irrigation as ordered. Youssef cath output is bloody. Continue to turn & reposition. Safety measures observed. Call light within reach. Will continue to monitor.
[2017-09-03] MEDS: NOREPINEPHRINE 16 MG in IV NS 0.9% 500 ML IV PRN ×3 (07:43→15:06)
[2017-09-03] MEDS: predniSONE 5 MG TABLET PO SCH ×2 (08:46→17:04)
[2017-09-03] MEDS: FLUDROCORTISONE 0.1 MG TABLET PO SCH ×2 (08:46→17:04)
[2017-09-03] MEDS: HYDROCORTISONE SOD SUCCINATE 100 MG/2 ML VIAL IV SCH ×3 (08:46→17:04)
[2017-09-03] MEDS: AMIODARONE HCL 200 MG TABLET PO SCH (08:47)
[2017-09-03] MEDS: KETOCONAZOLE 200 MG PO SCH ×2 (08:47→17:04)
[2017-09-03] MEDS: BLOOD SUGAR DIAGNOSTIC 1 EACH STRIP VI SCH ×4 (08:47→22:52)
[2017-09-03] MEDS: PANTOPRAZOLE 40 MG VIAL IV SCH (09:45)
[2017-09-03] MEDS: MORPHINE SULFATE SR 15 MG TABLET.SA PO SCH ×2 (09:46→20:18)
[2017-09-03] MEDS: QUETIAPINE FUMARATE 25 MG TABLET PO PRN (10:47)
--- NOTE | 2017-09-03 10:59 | NUR ---
WOUND CARE CONSULT: RECEIVED REQUEST TO SEE PT FOR RT ARM REDNESS PER DR FRANKLIN. RT ANTECUBITAL REDNESS AND RT WRIST SLIGHT REDNESS NOTED WITH PROFOUND EDEMA TO RT UPPER EXTREMITY WITH 3+ PITTING EDEMA. NO WEEPING OR MOISTURE NOTED TO AREAS. DEFER TO SUMMONS SERVER/MD FOR REDNESS. NURSES OBSERVING AREAS EVERY SHIFT AND ELEVATING EXTREMITY. WILL SEE PRN. Addendum: 09/03/17 at 1101 by ARSLAN PATRICIO WNDNU Amended: Links added.
--- NOTE | 2017-09-03 11:44 | NUR ---
RN NOTE: RIGHT AC SITE REDNESS & SWELLING RIGHT ARM SEEN BY WOUND RN. CALLED DR. JUNIOR, WILL ORDER ULTRASOUND. CONTINUE TO ELEVATE.
[2017-09-03] MEDS: INSULIN REGULAR, HUMAN 100 UNIT/ML 3 ML VIAL SQ PRN ×2 (12:18→17:51)
[2017-09-03] MEDS: IV NS 0.9% 250 ML IV PRN (12:19)
[2017-09-03] MEDS: ACETAMINOPHEN 325 MG TABLET PO PRN (17:10)
--- NOTE | 2017-09-03 18:46 | NUR ---
RN NOTE: PATIENT REMAINS ASLEEP, EASILY AROUSAL. VERBALLY RESPONSIVE. ON 6LPM O2 VIA NC, CRACKLES UPON AUSCULTATION. SEEN BY DR. SPRING & DR. JUNIOR AT BEDSIDE. VERBALLY DENIES PAIN. CONTINUE WITH LEVO DRIP PER PROTOCOL. SCHWARTZ CATH OUTPUT IS BLOODY, CONTINUE WITH CONTINUES BLADDER IRRIGATION. SAFETY MEASURES OBSERVED. AT BEDSIDE. CONTINUE TO MONITOR CLOSELY.
--- NOTE | 2017-09-03 20:00 | NUR ---
RURAL ROUTE MAIL CARRIER - notes - Received pt sleeping in bed, not in any distress, easily arousable, A/O x 1-2 w/ confusion. Pt shouts from time to time. On NC at 6lpm, sating at 98%. On telemonitor, SR/SB. Has R subclavian HD cath intact, and L IJ, TLC, no s/sx of infection/infiltration noted, on Levo Drip at 18 mcg/min infusing well. Has FC on CBI at 100 ml/hr, noted with clear ns, bleeding has subsided. Provided comfort & safety measures. Bd kept low & in locked pos. Call light placed w/in reach. Will continue to monitor & attend pt needs.
[2017-09-03] MEDS: LATANOPROST EYE DROP 0.005% 2.5 ML BOTTLE EACHEYE SCH (22:54)
[2017-09-03] MEDS: INSULIN GLARGINE, 100 UNIT/ML CARTRIDGE SQ SCH (22:55)
[2017-09-04] VITALS (84 sets, daily range): BP systolic 77–156; BP diastolic 29–110
[2017-09-04] MEDS: PIPERACILLIN /TAZOBACTAM 2.25 G in IV NS 0.9% 50 ML IV SCH ×3 (04:23→20:17)
[2017-09-04 05:24] LABS: CALCIUM, SERUM 7.6 mg/dL (8.5-10.1); CARBON DIOXIDE 25 mmol/L (21-32); CHLORIDE 95 mmol/L (98-107); CREATININE 5.8 mg/dL (0.6-1.3); GLUCOSE 99 mg/dL (74-106); POTASSIUM 4.7 mmol/L (3.5-5.1); SODIUM SERUM 131 mmol/L (136-145); UREA NITROGEN, BLOOD 62 mg/dL (7-18)
--- NOTE | 2017-09-04 06:55 | NUR ---
HD NURSE AT BEDSIDE, TO BEGIN DIALYSIS NOW
[2017-09-04] MEDS: BLOOD SUGAR DIAGNOSTIC 1 EACH STRIP VI SCH ×4 (08:13→23:12)
[2017-09-04] MEDS: HYDROCORTISONE SOD SUCCINATE 100 MG/2 ML VIAL IV SCH ×3 (09:19→17:17)
[2017-09-04] MEDS: PANTOPRAZOLE 40 MG VIAL IV SCH (09:19)
[2017-09-04] MEDS: FLUDROCORTISONE 0.1 MG TABLET PO SCH ×2 (09:20→17:22)
[2017-09-04] MEDS: MORPHINE SULFATE SR 15 MG TABLET.SA PO SCH ×2 (09:20→21:00)
[2017-09-04] MEDS: AMIODARONE HCL 200 MG TABLET PO SCH (09:20)
[2017-09-04] MEDS: KETOCONAZOLE 200 MG PO SCH ×2 (09:21→17:18)
[2017-09-04] MEDS: predniSONE 5 MG TABLET PO SCH ×2 (09:29→17:18)
--- NOTE | 2017-09-04 10:00 | NUR ---
HD COMPLETED 2 L OFF. WILL TITRATE LEVO CONDITION PERMITS. PT ASSISTED WITH BREAKFAST AND MEDICATIONS.
[2017-09-04 10:16] LABS: BASOPHILS % (AUTO) 0.2 % (0.0-2.0); HEMATOCRIT 21 % (39-51); HEMOGLOBIN 7.2 g/dL (13.5-17.5); LYMPHOCYTES # (AUTO) 0.2 /CMM (0.8-4.8); LYMPHOCYTES % (AUTO) 4.3 % (20.0-44.0); MEAN CORPUSCULAR HGB CONC 34 g/dl (31.0-36.0); MEAN CORPUSCULAR VOLUME 90 fL (80-96); MONOCYTES # (AUTO) 0.1 /CMM (0.1-1.30); MONOCYTES % (AUTO) 2.6 % (2.0-12.0); NEUTROPHILS # (AUTO) 4.6 /CMM (1.8-8.9); NEUTROPHILS % (AUTO) 92.9 % (43.0-81.0); PLATELET COUNT (AUTO) 72 /CMM (150-450); RDW COEFFICIENT OF VARIATION 15.8 (11.5-15.0); RED BLOOD CELL COUNT(AUTO) 2.38 MIL/uL (4.5-6.0); WHITE BLOOD COUNT (AUTO) 4.9 K/uL (4.3-11.0)
--- NOTE | 2017-09-04 11:00 | NUR ---
CARTER TOUSSAINT HERE TO SEE PT. GERRY ASSESSED, OK TO APPLY WORM COMPRESS. NO US ORDER AT THIS TIME.
[2017-09-04] MEDS: LORAZEPAM INJ 2 MG/ML VIAL IV PRN (12:18)
[2017-09-04 12:35] LABS: LYMPHOCYTES % (MANUAL) 7 % (16-48); MONOCYTES % (MANUAL) 1 % (0-11.0); NEUTROPHILS % (MANUAL) 92 (42-76)
[2017-09-04] MEDS: *INSULIN REGULAR(HUMULIN R)HUM 100 UNIT/ML VIAL SQ PRN ×2 (12:37→17:32)
[2017-09-04] MEDS: NOREPINEPHRINE 16 MG in IV NS 0.9% 500 ML IV PRN (15:28)
[2017-09-04] MEDS: QUETIAPINE FUMARATE 25 MG TABLET PO PRN (15:28)
--- NOTE | 2017-09-04 18:30 | NUR ---
FELIPE REPORTED TO CARTER. ONE UNIT PRBC ORDERED.
[2017-09-04 18:37] LABS: HEMOGLOBIN 6.8 g/dL (13.5-17.5)
--- NOTE | 2017-09-04 19:00 | NUR ---
RUE SWELLING INCREASES SINCE LAST ASSESSMENT AT 1600. CARTER NOTIFIED. EXTREMITY ELEVATED.
--- NOTE | 2017-09-04 19:52 | NUR ---
HARP REGULATOR. INITIAL ASSESSMENT. RECEIVED THE PT REST ON THE BED. PT IS SLEEPING. DOES NOT FOLLOW COMMANDS. OXYGEN 4L VIA NASAL CANNULA. SAT 98%. NO ACUTE DISTRESS NOTED. PEST CONTROL SUPERVISOR SHOWING NSR. IV LT IJ TRIPLE LUMEN RT SUBCLAVIAN HD CATH LEVOPHED 10MCG/MIN,BLADDER IRRIGATION 100ML/H,HOB ELEVATED. LUZ MARINA SOFT WRIST RESTRAINT CHECKED AND RELEASED. NO INJURY OR REDNESS NOTED. WILL CONTINUE TO MONITOR VITALS.
--- NOTE | 2017-09-04 21:33 | NUR ---
BALLING HEAD TENDER. MS CONTIN PO NOT GIVEN. PT IS OBTUNDED
[2017-09-04] MEDS: LATANOPROST EYE DROP 0.005% 2.5 ML BOTTLE EACHEYE SCH (23:12)
[2017-09-04] MEDS: INSULIN GLARGINE, 100 UNIT/ML CARTRIDGE SQ SCH (23:13)
--- NOTE | 2017-09-04 23:53 | NUR ---
THEORETICAL PHYSICIST. I UNIT PRBC GIVEN. DURING TRANSFUSION NO COMPLICATION NOTED.. WILL CONTINUE TO MONITOR.
[2017-09-05] VITALS (90 sets, daily range): BP systolic 51–158; BP diastolic 30–103
--- NOTE | 2017-09-05 04:40 | NUR ---
DRUM HANDLER, AM CARE, ORAL CARE, BED BATH GIVEN. LINEN CHANGED, REMAINING SAME OXYGEN NASAL CANNULA TOLERATED WELL. SAT 98%. NO ACUTE DISTRESS NOTED. STAFF SOFTWARE ENGINEER SHOWING NSR. IV LT IJ TRIPLE LUMEN, LEVOPHED 2MCG/MIN, SCHWARTZ IRRIGATION ON. HOB ELEVATED TURN AND REPOSITION Q2H. WILL CONTINUE TO MONITOR VITALS,
[2017-09-05 05:06] LABS: IRON, SERUM 81 ug/dl (50-175); TOTAL IRON BINDING CAPACITY 163 ug/dl (250-450)
[2017-09-05 05:08] LABS: CALCIUM, SERUM 7.7 mg/dL (8.5-10.1); CARBON DIOXIDE 24 mmol/L (21-32); CHLORIDE 94 mmol/L (98-107); CREATININE 5.2 mg/dL (0.6-1.3); GLUCOSE 116 mg/dL (74-106); POTASSIUM 4.2 mmol/L (3.5-5.1); SODIUM SERUM 130 mmol/L (136-145); UREA NITROGEN, BLOOD 52 mg/dL (7-18)
[2017-09-05] MEDS: PIPERACILLIN /TAZOBACTAM 2.25 G in IV NS 0.9% 50 ML IV SCH ×2 (06:12→13:29)
[2017-09-05 06:36] LABS: FERRITIN 3526 ng/mL (8-388)
[2017-09-05] MEDS: BLOOD SUGAR DIAGNOSTIC 1 EACH STRIP VI SCH ×4 (08:03→21:03)
[2017-09-05] MEDS: HYDROCORTISONE SOD SUCCINATE 100 MG/2 ML VIAL IV SCH ×3 (08:51→17:43)
[2017-09-05] MEDS: FLUDROCORTISONE 0.1 MG TABLET PO SCH ×2 (08:51→17:43)
[2017-09-05] MEDS: predniSONE 5 MG TABLET PO SCH ×2 (08:51→17:43)
[2017-09-05] MEDS: PANTOPRAZOLE 40 MG VIAL IV SCH (08:51)
[2017-09-05] MEDS: MORPHINE SULFATE SR 15 MG TABLET.SA PO SCH ×2 (08:51→21:05)
[2017-09-05] MEDS: KETOCONAZOLE 200 MG PO SCH ×2 (08:52→17:43)
[2017-09-05] MEDS: AMIODARONE HCL 200 MG TABLET PO SCH (08:52)
--- NOTE | 2017-09-05 09:00 | NUR ---
PT AWAKE, ORIENTED X2, VS WNL ON LEVO AT 6 MICS, HD IN PROGRESS. INITIAL ACCU CHECK THIS AM 46, REPEATED 50, LAB DRAW ORDERED STAT. CARTER [place]TA[place] IS AT THE BEDSIDE, ACCU CHECK REPEATED ONES MORE AND READS 40, D50 ADMINISTERED. ACCU CHECK REPEATED 15 MIN NOW 126.
[2017-09-05 09:36] LABS: HEMATOCRIT 28 % (39-51); HEMOGLOBIN 9.6 g/dL (13.5-17.5); LYMPHOCYTES # (AUTO) 0.3 /CMM (0.8-4.8); LYMPHOCYTES % (AUTO) 4.8 % (20.0-44.0); MEAN CORPUSCULAR HGB CONC 34 g/dl (31.0-36.0); MEAN CORPUSCULAR VOLUME 88 fL (80-96); MONOCYTES # (AUTO) 0.1 /CMM (0.1-1.30); MONOCYTES % (AUTO) 1.4 % (2.0-12.0); NEUTROPHILS # (AUTO) 6.6 /CMM (1.8-8.9); NEUTROPHILS % (AUTO) 93.8 % (43.0-81.0); PLATELET COUNT (AUTO) 65 /CMM (150-450); RDW COEFFICIENT OF VARIATION 15.9 (11.5-15.0); RED BLOOD CELL COUNT(AUTO) 3.21 MIL/uL (4.5-6.0); WHITE BLOOD COUNT (AUTO) 7.1 K/uL (4.3-11.0)
[2017-09-05 10:15] LABS: BAND % (MANUAL) 4 % (0.0-5.0); LYMPHOCYTES % (MANUAL) 7 % (16-48); MONOCYTES % (MANUAL) 5 % (0-11.0); NEUTROPHILS % (MANUAL) 84 (42-76)
[2017-09-05] MEDS: QUETIAPINE FUMARATE 25 MG TABLET PO PRN ×2 (10:33→17:48)
--- NOTE | 2017-09-05 14:15 | NUR ---
LEVOPHED TITRATED UP DUE TO LOW BP
[2017-09-05] MEDS: INSULIN REGULAR, HUMAN 100 UNIT/ML 3 ML VIAL SQ PRN (18:46)
[2017-09-05] MEDS: NOREPINEPHRINE 16 MG in IV NS 0.9% 500 ML IV PRN (19:05)
--- NOTE | 2017-09-05 19:30 | NUR ---
ICU/RN NOTES: RECEIVED PT. IN BED W/ HOB ELEVATED W/ O2 @ 6LPM VIA N/C SAT. 97%. ON TELE MONITOR W/ SR @ 68. W/ BILATERAL SOFT WRIST RESTRAINTS DUE TO PT. PULLING OUT HIS F/C. ALERT X 1. DOES GET AGITATED AT TIMES. HAS LEFT IJ TIC PATENT AND INTACT W/ NO S/S OF INFECTION/INFILTRATION NOTED. HAS LEVOPHED @ 6MCG. HAS F/C W/ CONTINUOS IRRIGATION OF 100ML/HR OF NS W/ PINKISH COLOR OUTPUT W/ NOTED SOME CLOTS. ON ROUTINE PAIN MEDS. NO FACIAL GRIMACES OR MOANING NOTED. WILL CONTINUE TO MONITOR.
[2017-09-05] MEDS: LATANOPROST EYE DROP 0.005% 2.5 ML BOTTLE EACHEYE SCH (21:08)
[2017-09-05] MEDS: INSULIN GLARGINE, 100 UNIT/ML CARTRIDGE SQ SCH (21:10)
[2017-09-05] MEDS: *INSULIN REGULAR(HUMULIN R)HUM 100 UNIT/ML VIAL SQ PRN (23:16)
[2017-09-06] VITALS (107 sets, daily range): BP systolic 54–171; BP diastolic 30–125
[2017-09-06 04:54] LABS: CARBON DIOXIDE 23 mmol/L (21-32)
[2017-09-06 06:37] LABS: BASOPHILS % (AUTO) 0.2 % (0.0-2.0); CALCIUM, SERUM 7.8 mg/dL (8.5-10.1); CHLORIDE 94 mmol/L (98-107); GLUCOSE 163 mg/dL (74-106); HEMATOCRIT 30 % (39-51); LYMPHOCYTES # (AUTO) 0.4 /CMM (0.8-4.8); LYMPHOCYTES % (AUTO) 4.8 % (20.0-44.0); MEAN CORPUSCULAR HGB CONC 33 g/dl (31.0-36.0); MEAN CORPUSCULAR VOLUME 89 fL (80-96); MONOCYTES # (AUTO) 0.1 /CMM (0.1-1.30); MONOCYTES % (AUTO) 1.7 % (2.0-12.0); NEUTROPHILS # (AUTO) 8.1 /CMM (1.8-8.9); NEUTROPHILS % (AUTO) 93.3 % (43.0-81.0); PLATELET COUNT (AUTO) 71 /CMM (150-450); RDW COEFFICIENT OF VARIATION 15.7 (11.5-15.0); RED BLOOD CELL COUNT(AUTO) 3.38 MIL/uL (4.5-6.0); SODIUM SERUM 128 mmol/L (136-145); UREA NITROGEN, BLOOD 58 mg/dL (7-18); WHITE BLOOD COUNT (AUTO) 8.7 K/uL (4.3-11.0)
[2017-09-06 06:38] LABS: CREATININE 5.9 mg/dL (0.6-1.3)
--- NOTE | 2017-09-06 07:12 | NUR ---
ICU/RN NOTES: NO ACUTE CHANGES NOTED DURING THIS SHIFT. REPORT GIVEN TO AM NURSE FOR ANGEL.
[2017-09-06] MEDS: BLOOD SUGAR DIAGNOSTIC 1 EACH STRIP VI SCH ×4 (07:50→21:56)
--- NOTE | 2017-09-06 07:51 | NUR ---
INITIAL ELECTRIC MOTOR REPAIR SUPERVISOR NOTE RCVD PT LETHARGIC, UNABLE TO OPEN EYES WHEN NAME CALLED, SR ON TELE. ON O2 VIA NC. 3-WAY SCHWARTZ TO CONTINUOUS IRRIGATION AT 100 ML/HR. LEFT IJ IN PLACE C/D/I/PATENT. NO S/O INFILTRATION/PHLEBITIS OBSERVED, PRESSORS INFUSING. WILL CONTINUE TO MONITOR PT FOR SAFETY AND COMFORT. CALL LIGHT WITHIN REACH. BED IN LOW AND LOCKED POSITION.
[2017-09-06] MEDS: predniSONE 5 MG TABLET PO SCH ×2 (08:07→16:08)
[2017-09-06] MEDS: KETOCONAZOLE 200 MG PO SCH ×2 (08:07→16:08)
[2017-09-06] MEDS: HYDROCORTISONE SOD SUCCINATE 100 MG/2 ML VIAL IV SCH ×3 (08:07→16:08)
[2017-09-06] MEDS: PANTOPRAZOLE 40 MG VIAL IV SCH (08:07)
[2017-09-06] MEDS: FLUDROCORTISONE 0.1 MG TABLET PO SCH ×2 (08:08→16:08)
[2017-09-06] MEDS: AMIODARONE HCL 200 MG TABLET PO SCH (08:08)
[2017-09-06] MEDS: INSULIN REGULAR, HUMAN 100 UNIT/ML 3 ML VIAL SQ PRN ×3 (08:10→17:51)
[2017-09-06] MEDS ORDERED: QUETIAPINE FUMARATE 25 MG TABLET PO SCH (09:00)
[2017-09-06 09:30] LABS: BAND % (MANUAL) 1 % (0.0-5.0); LYMPHOCYTES % (MANUAL) 8 % (16-48); MONOCYTES % (MANUAL) 9 % (0-11.0); NEUTROPHILS % (MANUAL) 82 (42-76)
[2017-09-06] MEDS: MORPHINE SULFATE SR 15 MG TABLET.SA PO SCH ×2 (09:52→21:02)
[2017-09-06] MEDS: QUETIAPINE FUMARATE 25 MG TABLET PO SCH ×2 (10:00→15:00)
--- NOTE | 2017-09-06 10:11 | NUR ---
TAPEMAN NOTE PT'S AT BEDSIDE UPDATED ON PT'S CONDITION. QUESTIONS ANSWERED TO HER SATISFACTION.
--- NOTE | 2017-09-06 14:25 | NUR ---
INFORMATICIST NOTE LEVO TITRATED UP TO MAINTAIN DESIRED SBP. DIALYSIS SCHEDULED FOR THIS AFTERNOON. NO SECOND PRESSOR ORDERED. DR. SPRING INFORMED OF ABOVE AND RECOMMENDED NEOSYNEPHRINE AND FOR HD NURSE NOT TO REMOVE FLUID, ONLY CLEAN. WILL F/U WITH HD RN.
[2017-09-06] MEDS: NOREPINEPHRINE 16 MG in IV NS 0.9% 500 ML IV PRN (14:37)
[2017-09-06 14:42] LABS: OCCULT BLOOD STOOL NEGATIVE (NEGATIVE)
[2017-09-06] MEDS ORDERED: PHENYLEPHRINE 20 MG in IV D5W 250 ML IV PRN (15:00)
[2017-09-06] MEDS ORDERED: MIDODRINE HCL (5MG) 5 MG TABLET PO SCH (15:00)
[2017-09-06] MEDS: MIDODRINE HCL (5MG) 5 MG TABLET PO SCH ×2 (15:49→21:03)
--- NOTE | 2017-09-06 16:11 | NUR ---
PAWN SHOP KEEPER JESUS SANDERS HD/RN INFORMED OF DR. SPRING'S RECOMMENDATION TO NOT REMOVE FLUID DURING DIALYSIS. HE MADE NEPHRO AWARE AND AGREES WITH DR. SPRING'S RECOMMENDATION. Addendum: 09/06/17 at 1849 by NICKOLAS CARTER RN MEDICATION NOTE SEROQUEL HELD DURING THE DAY DUE TO PT'S LETHARGY. DR. MENDOZA AWARE.
--- NOTE | 2017-09-06 18:44 | NUR ---
CABLE WIRER NOTE PT STABLE ON PRESSORS, SR ON TELE. TOLERATING O2 VIA NC. 3WAY SCHWARTZ TO GRAVITY AND ON CONTINUOUS IRRIGATION. LEFT IJ C/D/I/PATENT. NO S/ INFILTRATION/PHLEBITIS OBSERVED, LEVO INFUSING ORDERED. DIALYSIS FINISHING UP NO OUTPUT. PT REMAINED ON SAME RATE OF PRESSORS FROM BEGINNING OF TX. PT'S DAUGHTER AT BEDSIDE FEEDING PT. PT'S CARE WILL BE ENDORSED TO CHILD CARE ASSOCIATE TEACHER RN FOR CONTINUITY OF CARE. BED IN LOW AND LOCKED POSITION. CALL LIGHT WITHIN REACH.
--- NOTE | 2017-09-06 19:30 | NUR ---
Received patient awake not following commands trying to pull tele leads and tubings.With bilateral soft wrist restraints.No signs of circulatory impairment noted.Released and rom to extremities done. SR with ongoing Levophed gtt and will titrate accordingly.With O2 2L nasal cannula saturation 95% -96%.No respiratory distress noted.3W FC on continuous CBI with blood stained urine.Turned and repositioned offloading pressure points.
[2017-09-06] MEDS: LATANOPROST EYE DROP 0.005% 2.5 ML BOTTLE EACHEYE SCH (21:55)
[2017-09-06] MEDS: INSULIN GLARGINE, 100 UNIT/ML CARTRIDGE SQ SCH (21:56)
[2017-09-07] VITALS (81 sets, daily range): BP systolic 62–152; BP diastolic 40–140
--- NOTE | 2017-09-07 | NUR ---
Patient resting appears comfortable.VS stable.Turned and repositioned.
--- NOTE | 2017-09-07 02:00 | NUR ---
Patient awake with loose BM X 1.Bathed and complete linens changed turned and repositioned. Denies pain.VS stable. SR.Oral care and smith care done.
[2017-09-07 05:53] LABS: CALCIUM, SERUM 7.5 mg/dL (8.5-10.1); CARBON DIOXIDE 24 mmol/L (21-32); CHLORIDE 96 mmol/L (98-107); CREATININE 5.2 mg/dL (0.6-1.3); GLUCOSE 94 mg/dL (74-106); POTASSIUM 3.9 mmol/L (3.5-5.1); SODIUM SERUM 130 mmol/L (136-145); UREA NITROGEN, BLOOD 51 mg/dL (7-18)
[2017-09-07] MEDS: MIDODRINE HCL (5MG) 5 MG TABLET PO SCH (06:27)
--- NOTE | 2017-09-07 06:30 | NUR ---
Patient remains hemodynamically unstable.Levophed gtt infusing at 12 mcg.SR.Hematuria persist with CBI infusing.All due medications administered.Turned and repositioned.No distress noted.
[2017-09-07] MEDS: NOREPINEPHRINE 16 MG in IV NS 0.9% 500 ML IV PRN (07:26)
[2017-09-07 07:28] LABS: HEMATOCRIT 27 % (39-51); HEMOGLOBIN 9.1 g/dL (13.5-17.5); LYMPHOCYTES # (AUTO) 0.3 /CMM (0.8-4.8); LYMPHOCYTES % (AUTO) 5.2 % (20.0-44.0); MEAN CORPUSCULAR HGB CONC 34 g/dl (31.0-36.0); MEAN CORPUSCULAR VOLUME 88 fL (80-96); MONOCYTES % (AUTO) 0.6 % (2.0-12.0); NEUTROPHILS # (AUTO) 6.3 /CMM (1.8-8.9); NEUTROPHILS % (AUTO) 94.2 % (43.0-81.0); PLATELET COUNT (AUTO) 58 /CMM (150-450); RDW COEFFICIENT OF VARIATION 15.6 (11.5-15.0); RED BLOOD CELL COUNT(AUTO) 3.02 MIL/uL (4.5-6.0); WHITE BLOOD COUNT (AUTO) 6.7 K/uL (4.3-11.0)
--- NOTE | 2017-09-07 07:34 | NUR ---
INITIAL MARKETING PROJECT LEAD NOTE RCVD PT SLEEPING, RESPONDS TO VERBAL/TACTILE STIMULI. SR ON TELE. TOLERATING O2 VIA NC. 3W SCHWARTZ TO GRAVITY DRAINING BRIGHT RED FLUID. CONTINUOUS BLADDER IRRIGATION ONGOING. LEFT IJ IN PLACE C/D/I/PATENT. LEVO INFUSING NO S/O INFILTRATION/PHLEBITIS OBSERVED. WILL CONTINUE TO MONITOR PT FOR SAFETY AND COMFORT. CALL LIGHT WITHIN REACH. BED IN LOW AND LOCKED POSITION.
[2017-09-07] MEDS: BLOOD SUGAR DIAGNOSTIC 1 EACH STRIP VI SCH ×3 (07:46→16:46)
[2017-09-07] MEDS: HYDROCORTISONE SOD SUCCINATE 100 MG/2 ML VIAL IV SCH ×3 (08:24→16:31)
[2017-09-07] MEDS: predniSONE 5 MG TABLET PO SCH ×2 (08:24→16:31)
[2017-09-07] MEDS: AMIODARONE HCL 200 MG TABLET PO SCH (08:24)
[2017-09-07] MEDS: FLUDROCORTISONE 0.1 MG TABLET PO SCH ×2 (08:24→16:31)
[2017-09-07] MEDS: PANTOPRAZOLE 40 MG VIAL IV SCH (08:24)
[2017-09-07] MEDS: KETOCONAZOLE 200 MG PO SCH ×2 (08:24→16:31)
[2017-09-07 08:30] LABS: ABG BASE EXCESS -3.5 mmol/L; ABG OXYGEN SATURATION 94.7 % (92.0-98.5); ABG PCO2 44.3 mmHg (35.0-45.0); ABG PH 7.322 (7.350-7.450); ABG PO2 85.1 mmHg (75.0-100.0); AaDO2 120.2 mmHg; COHb 0.3 % (0.5-1.5); MetHb 0.7 % (0.0-1.5); O2Hb 93.8 % (94.0-97.0); SITE, ABG Right Radial; VENT MODE, BG Nasal Cannula
[2017-09-07] MEDS: MORPHINE SULFATE SR 15 MG TABLET.SA PO SCH (08:47)
--- NOTE | 2017-09-07 09:24 | NUR ---
FIRMWARE TEST ENGINEER NOTE PT'S , MARIOLA AT BEDSIDE UPDATED ON PT'S CONDITION. QUESTIONS ANSWERED TO HER SATISFACTION. PT REFUSED TO EAT BREAKFAST THIS AM. MARIOLA ATTEMPTED TO FEED PT AND WAS UNSUCCESSFUL. PT STATED NOT TO BE IN PAIN THIS AM AND WANTED TO SKIP THE SCHEDULED MORPHINE. WILL CONTINUE TO MONITOR.
[2017-09-07 09:28] LABS: BAND % (MANUAL) 2 % (0.0-5.0); LYMPHOCYTES % (MANUAL) 6 % (16-48); MONOCYTES % (MANUAL) 2 % (0-11.0); NEUTROPHILS % (MANUAL) 90 (42-76)
[2017-09-07] MEDS: QUETIAPINE FUMARATE 25 MG TABLET PO SCH ×2 (10:00→15:00)
--- NOTE | 2017-09-07 10:52 | NUR ---
MEDICATION ADMINISTRATIVE RESIDENT NOTE SEROQUEL HELD. PT APPEARS CALM AND A BIT LETHARGIC. PT'S AT BEDSIDE INFORMED.
[2017-09-07] MEDS ORDERED: MIDODRINE HCL (5MG) 5 MG TABLET PO SCH (13:00)
[2017-09-07] MEDS ORDERED: IV NS 0.9% 1,000 ML BAG IV ONE (16:30)
[2017-09-07] MEDS ORDERED: NEPRO VAN 237 ML CAN PO PRN (17:00)
[2017-09-07] MEDS ORDERED: IV NS 0.9% 1,000 ML IV ONE (17:30)
[2017-09-07 18:22] LABS: HEMOGLOBIN 7.9 g/dL (13.5-17.5)
--- NOTE | 2017-09-07 18:56 | NUR ---
FIRER TUNNEL KILN NOTE PT STABLE FOR TRANSFER TO [facility], LEVO TITRATED TO 4 MCG/MIN. CONTINUES TO TOLERATE O2 VIA NC, SR ON TELE. 3W SCHWARTZ ON CBI. LEFT IJ C/D/I/PATENT. NO S/O INFILTRATION/PHLEBITIS OBSERVED. PT'S CARE WILL BE ENDORSED TO IRRIGATION TECHNICIAN RN FOR CONTINUITY OF CARE. BED IN LOW AND LOCKED POSITION. PT'S HOME MEDICATION RETURNED TO YANNA, PT'S .
[2017-09-07] MEDS: HYDROCODONE/APAP 10/325MG 1 EA TABLET PO PRN (19:00)
--- NOTE | 2017-09-07 20:42 | NUR ---
SENIOR BUSINESS MANAGER - REC'D REPORT FROM [facility] RN - NICKOLAS. PT.IS LETHARGIC.PT'S & DAUGHTER AT BS. UPDATED FAMILY RE: TRANSFER TO [facility]. PHONE REPORT GIVEN TO MARKIE WELLS. VERBAL REPORT GIVEN TO STACEY RN FROM [facility]/AMBULANCE STAFF. SBP'S ARE WNL. LEVOPHED GTT. TIT - RATED DOWN TO 3 MCG/MIN. 0.9% NS INFUSING AT 100 CC/HR. TO LIJ. ALL PORTS PATENT TO FLUSH. PT. HAS PALPABLE PULSES X 4 EXTREMITIES. PT.IS PALE W/SACRAL DTI. MEPILEX DRSG CDI. AFEBRILE. SCHWARTZ CATHETER HAS HEMATURIA W/NOTABLE CLOTS. DINNER WAS UNTOUCHED. PT. IS ON O2/3L/NC. CONT. POC.
== END 2017-09-07 20:24 | disposition short-term general hospital (02) | DRG 871 ==
LOC: ER 15:40 → ICU 18:23
PROVIDERS: ADMIT Hospitalist; ATTEND Hospitalist
PROC: 5A1D70Z Performance of Urinary Filtration, Intermittent, Less than 6 Hours Per Day (ICD-10-PCS; 2017-08-29)
PROC: 30233N1 Transfusion of Nonautologous Red Blood Cells into Peripheral Vein, Percutaneous Approach (ICD-10-PCS; principal; 2017-08-31)
PROC: 5A1D70Z Performance of Urinary Filtration, Intermittent, Less than 6 Hours Per Day (ICD-10-PCS; 2017-08-31)
PROC: 5A1D70Z Performance of Urinary Filtration, Intermittent, Less than 6 Hours Per Day (ICD-10-PCS; 2017-09-02)
PROC: 5A1D70Z Performance of Urinary Filtration, Intermittent, Less than 6 Hours Per Day (ICD-10-PCS; 2017-09-04)
PROC: 5A1D70Z Performance of Urinary Filtration, Intermittent, Less than 6 Hours Per Day (ICD-10-PCS; 2017-09-05)
PROC: 5A1D70Z Performance of Urinary Filtration, Intermittent, Less than 6 Hours Per Day (ICD-10-PCS; 2017-09-06)
DX: A41.9 Sepsis, unspecified organism (principal); E43 Unspecified severe protein-calorie malnutrition; N17.0 Acute kidney failure with tubular necrosis; I21.A1 Myocardial infarction type 2; R65.21 Severe sepsis with septic shock; C79.51 Secondary malignant neoplasm of bone; R57.1 Hypovolemic shock; G93.41 Metabolic encephalopathy; J18.9 Pneumonia, unspecified organism; E27.40 Unspecified adrenocortical insufficiency; D69.2 Other nonthrombocytopenic purpura; N18.6 End stage renal disease; I48.92 Unspecified atrial flutter; E87.1 Hypo-osmolality and hyponatremia; I12.0 Hypertensive chronic kidney disease with stage 5 chronic kidney disease or end stage renal disease; F05 Delirium due to known physiological condition; D62 Acute posthemorrhagic anemia; D69.6 Thrombocytopenia, unspecified; E66.01 Morbid (severe) obesity due to excess calories; E11.65 Type 2 diabetes mellitus with hyperglycemia; E87.5 Hyperkalemia; I48.2 Chronic atrial fibrillation; D63.8 Anemia in other chronic diseases classified elsewhere; Z79.84 Long term (current) use of oral hypoglycemic drugs; Z90.5 Acquired absence of kidney; N18.9 Chronic kidney disease, unspecified; L98.8 Other specified disorders of the skin and subcutaneous tissue; E88.09 Other disorders of plasma-protein metabolism, not elsewhere classified; E83.51 Hypocalcemia; Z87.440 Personal history of urinary (tract) infections; Z87.01 Personal history of pneumonia (recurrent); M48.05 Spinal stenosis, thoracolumbar region; E78.5 Hyperlipidemia, unspecified; Z68.34 Body mass index [BMI] 34.0-34.9, adult; Z99.2 Dependence on renal dialysis; E83.9 Disorder of mineral metabolism, unspecified; C61 Malignant neoplasm of prostate; L30.4 Erythema intertrigo; L89.522 Pressure ulcer of left ankle, stage 2; Z79.899 Other long term (current) drug therapy; Z85.528 Personal history of other malignant neoplasm of kidney; S40.021A Contusion of right upper arm, initial encounter; X58.XXXA Exposure to other specified factors, initial encounter; Y93.9 Activity, unspecified; Y92.129 Unspecified place in nursing home as the place of occurrence of the external cause; Y99.9 Unspecified external cause status; F41.9 Anxiety disorder, unspecified; I51.7 Cardiomegaly; R31.0 Gross hematuria; E11.22 Type 2 diabetes mellitus with diabetic chronic kidney disease; H40.9 Unspecified glaucoma; Z79.52 Long term (current) use of systemic steroids
CPT/HCPCS: 36415; 36600; 71045-TC; 80048-TC; 80053-TC; 80061-TC; 80076-TC; 80202-TC; 81000-TC; 82272-TC; 82533; 82728-TC; 82746; 82947-TC; 82962-TC; 83540-TC; 83605-TC; 83735-TC; 83880; 84100-TC; 84443-TC; 84484-TC; 85025-TC; 85027-TC; 85730-TC; 86850-TC; 86921-TC; 87040-TC; 87081-TC; 87086-TC; 87400; 90935-TC; 94799-TC; A4216; A4217; A4606; A4624; A6403; C1751; C9113; J1720; J1815; J2060; J2270; J2370; J2543; J3370; J3490; J7030; J7040; J7050; J7060; J7512; P9016-BL; P9047; Z7610